=== PATIENT | female | born 1980 | race Hispanic/Latino ===

== ENCOUNTER 2023-08-14 04:10 | Inpatient (IN) | payer OTHER, SELFPAY ==
[2023-08-13] VITALS (10 sets, daily range): BP systolic 85–140; BP diastolic 63–103; BMI 34.8
[2023-08-13 22:03] LABS: % Basophils 0.6 % (0-2); % Immature Granulocytes 1.8 % (0-0.5); % Lymphocytes 11.1 % (20.5-51.1); % Monocytes 5.2 % (1.7-9.3); % Neutrophils 77.3 % (42.2-75.2); Absolute Basophils 0.1 10^3/uL (0-0.2); Absolute Eosinophils 0.7 10^3/uL (0-0.7); Absolute Immature Granulocytes 0.3 10^3/uL (0-0.05); Absolute Monocytes 0.9 10^3/uL (0.1-0.6); Absolute Neutrophils 13.7 10^3/uL (1.4-6.5); Hematocrit 34.9 % (37.0-47.0); Hemoglobin 12.2 g/dL (12.0-16.0); Mean Corpuscular Hgb 31.7 pg (27.0-31.0); Mean Corpuscular Volume 90.6 fL (81.0-99.0); Mean Platelet Volume 10.6 fL (7.4-10.4); Nucleated Red Blood Cells % 0 %; Platelet Count 294 10^3/uL (130-400); Red Blood Cell Count 3.85 10^6/uL (4.20-5.40); White Blood Cell Count 17.7 10^3/uL (4.8-10.8)
[2023-08-13] MEDS: NSS 1000 IV ×2 (22:08→23:35)
[2023-08-13 22:45] LABS: HCG, Serum Qualitative Screen Negative
[2023-08-13 22:49] LABS: ALT (SGPT) 110 U/L (0-35); AST (SGOT) 57 U/L (14-36); Albumin 4.2 g/dl (3.5-5.0); Alkaline Phosphatase 59 U/L (38-126); Blood Urea Nitrogen 27 mg/dl (7-17); Calcium 8.7 mg/dl (8.4-10.2); Carbon Dioxide 23 mmol/L (22-30); Chloride 107 mmol/L (98-107); Estimated Creatinine Clearance 115 ml/min; Glucose 129 mg/dl (70-99); Potassium 4.2 mmol/L (3.5-5.1); Sodium 138 mmol/L (135-145); Total Bilirubin 0.8 mg/dl (0.2-1.3); Total Protein 6.6 g/dl (6.3-8.2); eGFR > 60.00
[2023-08-13] MEDS: MORPHINE SULFATE 4 MG IV (23:36)
[2023-08-13] MEDS: PROTONIX 100 IV (23:40)
[2023-08-13] MEDS: PROTONIX IV 80 MG IV (23:43)
--- NOTE | 2023-08-13 23:53 | ED.GENMED ---
History of Present Illness
General
Chief Complaint: Vomiting Blood
Source: patient and family
Time Seen by Provider: 08/13/23 22:08
Travel History
Have you had any contact with someone who has COVID-19?: No
Do you have any symptoms of coronavirus? Fever > 100 degrees, chills, cough, shortness of breath, sore throat, loss of taste or smell, muscle aches, or headache?: No
History of Present Illness
History of Present Illness:
42-year-old female presents after she began vomiting blood at home. Patient states that she was eating around 2:00 this afternoon felt like food had gotten stuck. She then went and vomited. She did see some blood but it was mostly just vomitus
and food. She states then around 7 or 8 PM she came home and was not feeling well. She began vomiting and noticed all bright red blood. Patient states there was clots and she must of vomited 5-8 times. She also has some pain in the right upper
quadrant her abdomen. Patient states that then she noticed her stool was black. She does admit that she drinks 2 'tall boy' twisted teas daily. She also smokes 1 cigarette a day. She has had no vomiting in emergency department.
Past History
Past History
ED Past Medical History: Asthma, Hypercholesterolemia and Psychiatric (Anxiety/depression)
Social History
Tobacco: Smoker
Alcohol: Daily
Drug: None
Personal: Single
Living: homeless
Phy Exam
Physical Exam
Physical Exam:
CONSTITUTIONAL Patient alert and oriented to person, place and time. Vital signs reviewed.
HEAD atraumatic, normocephalic.
EYES eyelids normal to inspection, Pupils equally round and reactive to light, Extraocular muscles intact, Conjunctiva normal, Sclera normal.
NECK normal range of motion, Trachea midline, no jugular venous distention.
RESPIRATORY CHEST No respiratory distress noted, Chest expansion equal, Bilateral breath sounds clear.
CARDIOVASCULAR regular and tachycardic, Heart sounds normal.
ABDOMEN mild epigastric tenderness, Bowel sounds normal. No distention.
Rectal exam heme positive (only small smear of stool)
BACK normal inspection, no obvious deformities
UPPER EXTREMITY range of motion normal, Motor strength normal, no cyanosis, no edema.
LOWER EXTREMITY range of motion normal, Motor strength normal, no cyanosis, no edema.
NEURO Speech normal, No focal motor deficits, Violeta coma scale 15, Memory normal, Cranial Nerves intact to screening exam.
SKIN skin warm, dry, and normal in color.
PSYCHIATRIC patient oriented to person place and time, Normal affect.
Course
Orders/Labs/Results
Orders:
Orders
08/13/23 21:48
Test Result ONCE
08/13/23 21:56
Type+Screen Urgent
Complete Blood Count/With Diff Urgent
08/13/23 22:08
0.9% Sodium Chloride 1000 ml [Nss] 1,000 ml IV BOLUS
08/13/23 22:26
Comprehensive Metabolic Panel Urgent
HCG, Serum Qualitative Screen Urgent
08/13/23 22:47
Pantoprazole 80 mg/100 ml Nss [Protonix] 80 mg in 100 ml IV NOW
Pantoprazole [Protonix IV] 80 mg IV NOW STA
08/13/23 22:48
0.9% Sodium Chloride 1000 ml [Nss] 1,000 ml IV BOLUS
08/13/23 22:49
CT Chest/abd/pel W Iv Cont Urgent
Comment:
Reason For Exam: cp, abd pain, vomiting blood
08/13/23 23:00
Flush (0.9% Sodium Chloride) [Flush (Nss)] See Dose Instructions IV PER PROTOCOL
08/13/23 23:13
Prothrombin Time Urgent
08/13/23 23:22
Morphine Sulfate 4 mg IV NOW STA
08/14/23 00:07
Piperacillin/Tazo 3.375 Gram [Zosyn] 3.375 gram in 50 ml IV NOW
08/14/23 00:26
HYDROmorphone [Dilaudid] 1 mg IV NOW STA
08/14/23 00:32
Barium Swallow [RF Pharynx/cervical Esophagus] Urgent
Comment:
Reason For Exam: pain, vomiting, r/o esophageal rupture
Abnormal Lab Results
08/13/23 08/13/23 08/13/23
21:56 22:26 23:13
WBC 17.7 H 10^3/uL
(4.8-10.8)
RBC 3.85 L 10^6/uL
(4.20-5.40)
Hct 34.9 L %
(37.0-47.0)
MCH 31.7 H pg
(27.0-31.0)
MPV 10.6 H fL
(7.4-10.4)
Abs Immat Gran (auto) 0.3 H 10^3/uL
(0-0.05)
Absolute Neuts (auto) 13.7 H 10^3/uL
(1.4-6.5)
Absolute Monos (auto) 0.9 H 10^3/uL
(0.1-0.6)
Immature Gran % 1.8 H %
(0-0.5)
Neutrophils % 77.3 H %
(42.2-75.2)
Lymphocytes % 11.1 L %
(20.5-51.1)
PT 14.7 H Sec
(11.4-14.6)
BUN 27 H mg/dl
(7-17)
Glucose 129 H mg/dl
(70-99)
AST 57 H U/L
(14-36)
ALT 110 H U/L
(0-35)
08/13/23 21:56
08/13/23 22:26
Vital Signs
Initial and Last Documented VS:
Initial Vital Signs
Temp Pulse Resp BP Pulse Ox
98.8 F 120 20 119/89 96
08/13/23 21:49 08/13/23 21:49 08/13/23 21:49 08/13/23 21:49 08/13/23 21:49
Last Documented Vital Signs
Temp Pulse Resp BP Pulse Ox
98.8 F 95 15 149/95 99
08/13/23 21:49 08/14/23 00:30 08/14/23 00:30 08/14/23 00:30 08/14/23 00:30
MDM/Problems Addressed
Differential Diagnosis Includes:
Norma-Eckert tear, esophageal variceal bleeding, peptic ulcer disease, duodenal ulcer disease, esophageal rupture
MDM/Problems Addressed:
Acute upper GI bleeding, alcohol abuse, abdominal pain
*Radiology
Radiology exam reviewed: preliminary read by ED provider (No obvious free air, await radiology reading) and radiology read reviewed
*Pulse Oximetry
Patient hypoxic: no
*Nutrition Assistant Interpretation
Rate: tachycardiac
Interpretation: abnormal
Rhythm: sinus
*Critical Care Note
Total Time (30-74mins, 75-104mins- exclusive of procedures): 90 minutes
Data Reviewed
Source: patient and family
Prescriptions/Medications Considered But Not Given:
Considered octreotide but no known history of cirrhosis
Patient Management
Discussion with other providers: Vice President Of Marketing, Radiologist (Case discussed with radiologist who states that he does not see any barium extravasation) and Other (Case discussed with thoracic surgery at [facility] who recommends barium swallow)
Escalation/DeEscalation of care consider admission/obs:
42-year-old female with upper GI bleeding. No further bleeding here in the emergency department but does have heme positive stools. IV PPI, antibiotics
0015 Case discussed with thoracic surgery at [facility]. They recommend a barium swallow. If negative, no need for transfer. Case was also discussed with gastroenterology.
0144 Case discussed with radiology who does not see any extravasation of barium. Continue PPI. Admit. Blood pressure stable
ED Attending Note
ED Attending Note
Patient seen and examined by attending physician: Yes
I performed the substantive portion of visit, reviewed & personally made and approve the management plan that is documented in note by myself or LAYNE.: Yes
-
Portions of this chart may have been created with voice recognition software.� Occasional wrong word or��sound alike� substitutions may have occurred due to the inherent limitations of voice recognition software.
Discharge Plan
Departure
Patient Disposition: Admit
Date of Disposition: 08/13/23
Time of Disposition: 23:57
Admit to: IMU
Presentation/result/management discussed w/ accepting MD/DO: Hospitalist
Discharge Problem:
Acute upper gastrointestinal hemorrhage, Esophageal rupture, Pneumomediastinum
Referrals:
Jennifer Mccloud MD [Family Provider] -
Interventions
Interventions:
*Risk Screen - Suicide Last Done: 08/13/23 21:58
*General Assessment Last Done: 08/13/23 21:58
*Neglect/Abuse Screening Last Done: 08/13/23 21:58
*ED COVID-19 Vaccine History Last Done: 08/14/23 01:27
TV-Gytcai-Fgokqxqniz Assessment Last Done: 08/13/23 22:00
ED- Cardiac Assessment Last Done: 08/13/23 22:00
ED- Pulmonary Assessment Last Done: 08/13/23 22:00
Discharge Date and Time
Print Language: CHADIAN
[2023-08-14] VITALS (38 sets, daily range): BP systolic 112–149; BP diastolic 71–112; PULSE 90–100; BMI 34.8
[2023-08-14 00:14] LABS: INR 1.14; PT 14.7 Sec (11.4-14.6)
[2023-08-14] MEDS: DILAUDID 1 MG IV (00:49)
[2023-08-14] MEDS: ZOSYN 50 IV ×5 (00:52→23:26)
--- NOTE | 2023-08-14 02:08 | EDRN ---
Pt says she swallowed a shrimp, felt it was stuck so she made herself vomit around 1400 yesterday. Pt felt better and went out with her roommate. When pt returned home around 1900 she did not feel well and vomited bright red blood. Pt vomited 5
minutes later and said 'it looked like a bottle of wine with clots.' Pt had a bowel movement that was 'dark' no blood noted. Pt says she vomited 5-8 times. Pt denies pain currently and says 'I can breathe now.' Pt says she felt expansion in her
abdomen/chest and had to 'hold my right boob' to help with breathing but now her breathing is back to normal. Pt denies cp, sob currently, abd pain, constipation/diarrhea, weakness, dizziness, fever/chills/cough. Pt vomited small amount red tinged
liquid about 5 minutes ago.
--- NOTE | 2023-08-14 02:36 | HPS.HSE ---
Family Physician
-
Family Physician: Jennifer Mccloud MD
Chief Complaint
-
vomiting blood
History of Present Illness
42F HX suggestive of ETOH use disorder, current smoker, HLD, COPD, Anxiety/depression seen at ER for evaluation vomiting blood.
Acute hematemesis
- Initially she felt choking with food in the throat
- She drank fluid then forced herself to vomit
- following self induced emesis, she vomited BRB and clots at least 5 times at home
- associated RUQ abdominal pain with radiation to Rt upper back
- she called EMS
Per EMS
- lots of blood in the toilet anf bathtub
At ER:
Hemodynamically stable
SHANE: small smear of stool and heme positive
Medical History
Past Medical History
Past Medical History: Reports Other
Additional Past Medical History:
Asthma, Hypercholesterolemia and Psychiatric (Anxiety/depression) MYNOR use disorder
Past Surgical History: Reports None
Social History
Tobacco: Smoker
Alcohol: Daily (2 bottle of twister daily ( Ice tea with ETOH ) )
Drug: None
Living: Other
Family History
Family History: Not pertinent
Allergies / Home Medications
Allergies reflects when Allergies were last updated in [employer].
Home Medications with original date entered in [employer]
Allergy/Medication List:
Allergies
Allergy/AdvReac Type Severity Reaction Status Date / Time
No Known Allergies Allergy Verified 08/13/23 21:47
Home Medications
albuterol sulfate 90 mcg/actuation aerosol inhaler 1 puff inhalation PRN PRN sob 08/14/23
atorvastatin 10 mg tablet 10 mg PO QPM 08/14/23
bupropion HCl 300 mg 24 hr tablet, extended release 300 mg PO DAILY 08/14/23
fluticasone 250 mcg-salmeterol 50 mcg/dose blistr powdr for inhalation (Advair Diskus) 1 inh inhalation DAILY 08/14/23
ipratropium 0.5 mg-albuterol 3 mg (2.5 mg base)/3 mL nebulization soln 3 ml inhalation Q4H PRN sob 08/14/23
quetiapine 1 tab PO DAILY 08/14/23
vortioxetine 20 mg tablet (Trintellix) 20 mg PO DAILY 08/14/23
Review of Systems
-
Constitutional: Reports No Symptoms
EENT: Reports No Symptoms
Respiratory: Reports No Symptoms
Cardiac: Reports No Symptoms
Abdomen/GI: Reports Abdominal Pain and Vomiting (blood )
: Reports No Symptoms
Musculoskeletal: Reports No Symptoms
Skin: Reports No Symptoms
Neurological: Reports No Symptoms
Endocrine: Reports No Symptoms
Hematologic/Lymphatic: Reports No Symptoms
Psych: Reports No Symptoms
Physical Exam
Vital Signs
Vital Signs
Temp Pulse Resp BP Pulse Ox
98.3 F 98 18 127/92 94
08/14/23 01:42 08/14/23 02:00 08/14/23 02:00 08/14/23 01:42 08/14/23 02:00
Physical Exam
General: No Apparent Distress
HEENT: NormoCephalic, Anicteric and Moist mucous membranes
Respiratory: Clear; No Wheezes, Rales or Rhonchi
Cardiac: S1/S2, Regular Rhythm and Tachycardia (borderline tachycardic )
Breast: Deferred by me
GI: Soft, Non Distended and Tender ( mild epigastric tenderness)
Rectal: Hem Positive (from [facility] stool smaer )
Genito-urinary: Deferred by me
Musculoskeletal: No Edema
Skin: Warm and Dry; No Rash
Neuro: AO x 3 and Nonfocal/grossly intact
Psych: Calm
Laboratory Results
-
08/13/23 21:56
06/07/24 22:26
Laboratory Results
PT 14.7 Sec (11.4-14.6) H 08/13/23 23:13
INR 1.14 08/13/23 23:13
Total Bilirubin 0.8 mg/dl (0.2-1.3) 08/13/23 22:26
AST 57 U/L (14-36) H 08/13/23 22:26
ALT 110 U/L (0-35) H 08/13/23 22:26
Alkaline Phosphatase 59 U/L (38-126) 08/13/23 22:26
Lipase Cancelled 08/13/23 21:56
Data Reviewed
-
Diagnostic Radiology: Report Reviewed by me
CT Scan: Report Reviewed by me
Lab Data: Labs Reviewed by me
Impression/Plan
-
Reviewed VS: T 98.3 HR 98 BP 127/92 RR18 POx 94
Data
WCC 17.7
Hgb 12.2 - no prior data
BUN 27
AST 57
ALT 110
Nl TB
NEG HCG
CT C/A/P
RF Esophagus-Single Contrast: and Barium swallow: Normal. No extravesation
NO PRIOR hospitalist admission:
ASSESSMENT & PLAN
Pending Rx reconciliation
Acute GIB - suspect upper GI origin
DDX: Norma-Eckert tear, esophageal variceal bleeding, peptic ulcer disease, duodenal ulcer disease, esophageal rupture
Prelim CT AP concerning for suspicion for pneumomediastinum however barium swallow neg without extravasation
- T & S
- Blood consented
- Trend Hgb
- PPI gtt
- NPO and IVF
- Empiric IV Zosyn
- GI consult
HX suggestive of severe ETOH use disorder
At risk for Acute WDS
- MSAS protocol
- Psych consult
Anxiety/ Depression
- Held OP Meds for now
HLD
- Held Statin
HX COPD
Curent smoker
- cont. OP INH and PRN Nebs
DVT Px: SCD
Code: Full code
IMU
[2023-08-14] MEDS: NSS 1000 IV ×2 (04:50→17:38)
[2023-08-14 04:55] LABS: INR 1.16; PT 14.9 Sec (11.4-14.6)
[2023-08-14 05:03] LABS: Hematocrit 29.3 % (37.0-47.0); Hemoglobin 10.3 g/dL (12.0-16.0)
[2023-08-14 05:07] LABS: ALT (SGPT) 99 U/L (0-35); AST (SGOT) 49 U/L (14-36); Albumin 3.8 g/dl (3.5-5.0); Alkaline Phosphatase 58 U/L (38-126); Blood Urea Nitrogen 21 mg/dl (7-17); Calcium 8.1 mg/dl (8.4-10.2); Carbon Dioxide 23 mmol/L (22-30); Chloride 110 mmol/L (98-107); Estimated Creatinine Clearance > 125 ml/min; Glucose 115 mg/dl (70-99); Potassium 4.2 mmol/L (3.5-5.1); Sodium 140 mmol/L (135-145); Total Bilirubin 0.8 mg/dl (0.2-1.3); Total Protein 6.2 g/dl (6.3-8.2); eGFR > 60.00
--- NOTE | 2023-08-14 05:14 | EDRN ---
Pt asking about pain medication - there is none ordered. Pt complains of pain RUQ abdomen 'like there is air in there.' TT to Shelby Aragon with pain medication request and morning h/h results.
[2023-08-14] MEDS: DILAUDID 0.5 MG IV (05:19)
--- NOTE | 2023-08-14 07:02 | EDRN ---
Pt is IMU admission going to ICU - attempted to call report. ICU unable to take report, will call back.
--- NOTE | 2023-08-14 08:00 | PTCARENOTE ---
Received patient from ER. Patient oriented to room. Patient AAOx4, anxious. MSAS is 1. Patient is on room air 95%, Sinus rhythm on monitor. SCDs ordered, will obtain and put on. Patient is strict NPO. No nausea at this time. Skin is intact.
Will review orders, patient oriented to room, call beltre within reach.
[2023-08-14] MEDS: FOLVITE PO (09:07)
[2023-08-14] MEDS: ADVAIR HFA 115/21 MCG INHALER 2 PUFF INH ×2 (09:07→22:01)
[2023-08-14] MEDS: THIAMINE INJECTION 200 MG IV ×3 (09:13→23:26)
[2023-08-14] MEDS: PROTONIX 100 IV ×2 (09:13→20:20)
--- NOTE | 2023-08-14 09:18 | CON.GI ---
Addendum entered and electronically signed by Polina Bledsoe MD 08/14/23 20:34:
I saw and examined the patient.
The [employer] or PA's note was reviewed and I agree with the note.
Comment: 40-year-old female with history of anxiety/depression, asthma presenting with complaints of hematemesis chest discomfort after an episode of dysphagia where she had rice/meat stuck in the esophagus after lunch yesterday. She induced
vomiting to relieve the obstruction and had retching with this, she was able to bring up the food and was able to drink water after but after that had multiple episodes of coffee-ground emesis and 1 episode of melena. She continues to have pain in
the chest and came to the emergency room last night. In the ER, she had CT of the chest that showed circumferential mild wall thickening of the mid and distal esophagus suggesting acute Norma-Roblero tear, small hiatal hernia, possible minimal
pneumomediastinum. Also noted was severe diffuse fatty liver. ER physician did discuss with CT surgery at [facility] who recommended single contrast esophagram, there was no evidence of esophageal tear and contrast passed normally into the stomach
without any evidence of extraluminal extravasation and patient was admitted here at [facility].
She does report episodes of dysphagia when she was younger but not in her adolescent and adult health. No GI issues prior to this episode.
In the ER, she did have mild leukocytosis and drop in hemoglobin but no further hematemesis or coffee-ground emesis since this morning. Never had GI bleeding, no previous upper endoscopy and colonoscopies.
-Hematemesis/coffee-ground emesis with underlying Norma-Roblero tear related to retching
Currently hemodynamically stable without any further coffee-ground emesis.
Continue to be n.p.o., continue Protonix drip.
Monitor H&H and transfuse as needed.
No plans for upper endoscopy at this time given the possibility of pneumomediastinum.
-Pneumomediastinum noted on CT scan, currently getting antibiotic coverage and hospitalist team in touch with thoracic surgery delivers to [place] for possible transfer.
Plan is for repeat esophagram on Wednesday.
-Elevated LFTs, underlying fatty liver noted. Daily alcohol use.
Agree with hepatitis panel but needs outpatient follow-up.
Will follow for now but will arrange to set up for outpatient endoscopy after 8 weeks but needs PPI twice a day until then.
Original Note:
Consultation
-
Date/Time Consultation Requested: 08/14/23 042
Date/Time Consultation Performed: 08/14/23 0900
Requesting Provider: Dr. Huerta
Performing Provider: Dr. Bledsoe/ALMA Mo
Reason for Consultation: hematemasis
Medical History
Chief Complaint / HPI
Chief Complaint: hematemesis
History of Present Illness:
42-year-old female with past medical history of asthma, hyperlipidemia, anxiety and depression presents to the emergency room with hematemesis and right-sided chest discomfort. Asked to evaluate for the same. Patient states that she has a
longstanding history of intermittent dysphagia associated with foods such as steak. She states that this has been ongoing since a child. She states that it was usually when she would eat fast as a child. Now only happens approximately 3-4 times a
year mostly associated with steak. She has had to force regurgitate this in the past. She states the last episode was approximately 3 to 4 months ago. She states yesterday she was eating shrimp with broccoli with how special rice and she was
eating this fast. She felt it get stuck in her throat in the mid epigastric area. She then proceeded to drink water and felt a pain that came across the right side of her chest and felt as if it 'stretched something across her right side'. She
then quickly vomited up the food by sticking her fingers down her throat. This relieved some of the pressure in her esophagus however the discomfort in the right side of her chest remained. This was somewhat alleviated. She states then an hour or
so later she felt very nauseous, clammy and a feeling as if a hot wave came over her. She then proceeded to have 2 episodes of bright red blood vomitus. And 1 episode of black stool. She then started having further discomfort in the right side of
her chest and she proceeded to come to the emergency room. She is still having this discomfort at the present time. She is also having radiating discomfort to her right shoulder. She has had no further episodes of vomiting or stools. She drinks
approximately 48 ounces of 'twisted tea'. She smokes 1 cigarette a day. She has a prior history of cocaine abuse and quit/went to rehab 3 years ago. She states she has been clean ever since. She does occasionally use marijuana. She denies any
fevers, hematochezia, early satiety, unintentional weight loss. She has no family history gastrointestinal malignancies or IBD. She has never had endoscopy or colonoscopy
Past Medical History
Past Medical History: Asthma, Hypercholesterolemia, Psychiatric (Anxiety, depression) and Other (Intermittent dysphagia)
Past Surgical History: None (Sinus surgery, bilateral carpal tunnel)
Social History
Tobacco: Smoker
Alcohol: Daily (48 out to the twisted teas daily)
Drug: Former User (Former cocaine user, quit 3 years ago) and Marijuana (Occasional marijuana)
Personal: Single
Family History
Family History: Other (No family history of gastrointestinal malignancy or IBD.)
Allergies / Home Medications
Allergy/AdvReac Type Severity Reaction Status Date / Time
No Known Allergies Allergy Verified 08/13/23 21:47
�Medication �Instructions �Recorded
albuterol sulfate 90 mcg/actuation 1 puff inhalation PRN PRN sob 08/14/23
aerosol inhaler
atorvastatin 10 mg tablet 10 mg PO QPM 08/14/23
bupropion HCl 300 mg 24 hr tablet, 300 mg PO DAILY 08/14/23
extended release
fluticasone 250 mcg-salmeterol 50 1 inh inhalation DAILY 08/14/23
mcg/dose blistr powdr for
inhalation (Advair Diskus)
ipratropium 0.5 mg-albuterol 3 mg 3 ml inhalation Q4H PRN sob 08/14/23
(2.5 mg base)/3 mL nebulization
soln
quetiapine 1 tab PO DAILY 08/14/23
vortioxetine 20 mg tablet 20 mg PO DAILY 08/14/23
(Trintellix)
Review of Systems
-
All other systems: A 12 pt ROS was Negative except as stated above in HPI
Vital Signs
Temp Pulse Resp BP Pulse Ox
98.3 F 90 19 117/77 97
08/14/23 08:00 08/14/23 09:13 08/14/23 09:13 08/14/23 07:00 08/14/23 09:13
Physical Exam
Exam
General: No Apparent Distress
HEENT: Anicteric
Respiratory: Clear (Anterior) and Other (Discomfort in right side of chest holding her right breast)
Cardiac: Regular Rhythm
GI: Soft, Non Tender, Non Distended and Normal Bowel Sounds
Musculoskeletal: No Edema
Skin: Warm and Dry
Psych: Calm
Results
WBC 17.7 10^3/uL (4.8-10.8) H 08/13/23 21:56
Hgb Cancelled 08/14/23 22:21
Hct Cancelled 08/14/23 22:21
MCV 90.6 fL (81.0-99.0) 08/13/23 21:56
Plt Count 294 10^3/uL (130-400) 08/13/23 21:56
Absolute Neuts (auto) 13.7 10^3/uL (1.4-6.5) H 08/13/23 21:56
PT 14.9 Sec (11.4-14.6) H 08/14/23 04:35
INR 1.16 08/14/23 04:35
Sodium 140 mmol/L (135-145) 08/14/23 04:35
Potassium 4.2 mmol/L (3.5-5.1) 08/14/23 04:35
Chloride 110 mmol/L (98-107) H 08/14/23 04:35
Carbon Dioxide 23 mmol/L (22-30) 08/14/23 04:35
BUN 21 mg/dl (7-17) H 08/14/23 04:35
Creatinine 0.6 mg/dL (0.6-1.0) 08/14/23 04:35
Calcium 8.1 mg/dl (8.4-10.2) L 08/14/23 04:35
Total Bilirubin 0.8 mg/dl (0.2-1.3) 08/14/23 04:35
AST 49 U/L (14-36) H 08/14/23 04:35
ALT 99 U/L (0-35) H 08/14/23 04:35
Alkaline Phosphatase 58 U/L (38-126) 08/14/23 04:35
Lipase Cancelled 08/13/23 21:56
Diagnostic Image Results:
CT chest abdomen and pelvis 08/14/2023:
IMPRESSION:
CHEST:
1. Mild circumferential wall thickening throughout the mid and distal esophagus with suggestion of intramural edema in the right posterolateral distal esophageal wall and a small amount of paraesophageal complex fluid or hemorrhage. The findings
in conjunction with the patient history are most suggestive of an ACUTE NORMA-ROBLERO TEAR.
2. Small hiatal hernia.
3. Possible minimal pneumomediastinum.
ABDOMEN and PELVIS:
1. SEVERE DIFFUSE HEPATIC STEATOSIS and mild hepatomegaly.
2. No CT evidence for ascites or pneumoperitoneum.
3. Small bilateral nonobstructing intrarenal calculi.
4. IUD in the uterus.
A preliminary interpretation was provided by [facility] teleradiology service. The preliminary report was discussed with Seferino Agustin DO of the Emergency Department at 11:59 PM on 08/13/2023.
Single contrast esophagram 08/14/23:
IMPRESSION:
Normal.Single contrast Omnipaque 240 mg /ml esophagram was performed demonstrating the esophagus to be normal in architecture and motility with no evidence of esophageal tear. There is no evidence of stricture, obstruction or neoplasm.
Contrast passed normally into the stomach with no evidence of extraluminal extravasation.
Prior GI Procedures:
EGD: Never had
Colonoscopy: Never had
Assessment / Plan
-
42-year-old female with past medical history of asthma, hyperlipidemia, anxiety and depression presents to the emergency room with hematemesis and right-sided chest discomfort. Asked to evaluate for the same. Patient states that she has a
longstanding history of intermittent dysphagia associated with foods such as steak. She states that this has been ongoing since a child. She states that it was usually when she would eat fast as a child. Now only happens approximately 3-4 times a
year mostly associated with steak. She has had to force regurgitate this in the past. She states the last episode was approximately 3 to 4 months ago. She states yesterday she was eating shrimp with broccoli with how special rice and she was
eating this fast. She felt it get stuck in her throat in the mid epigastric area. She then proceeded to drink water and felt a pain that came across the right side of her chest and felt as if it 'stretched something across her right side'. She
then quickly vomited up the food by sticking her fingers down her throat. This relieved some of the pressure in her esophagus however the discomfort in the right side of her chest remained. This was somewhat alleviated. She states then an hour or
so later she felt very nauseous, clammy and a feeling as if a hot wave came over her. She then proceeded to have 2 episodes of bright red blood vomitus. And 1 episode of black stool. She then started having further discomfort in the right side of
her chest and she proceeded to come to the emergency room. She is still having this discomfort at the present time. She is also having radiating discomfort to her right shoulder. She has had no further episodes of vomiting or stools. Patient was
CT of the chest abdomen pelvis showing mild circumferential wall thickening throughout the mid and distal esophagus with suggestion of intramural edema at the right posterior lateral distal esophagus wall and small amount of paraesophageal complex
fluid or hemorrhage. The findings in conjunction with patient history suggestive of acute Norma-Roblero tear. Small hiatal hernia. Possible minimal pneumomediastinum. Patient presents with WBC of 17.7, hemoglobin initially of 12.2 down to 10.3,
hematocrit 34.9 now down to 29.3, platelets 294, PT 14.9, INR 1.16, sodium 140, potassium 4.2, chloride 110, CO2 23, BUN 21, creatinine 0.6, glucose 115, total bilirubin 0.8, AST 49, ALT 99, alk phos 58, albumin 3.8.
Impression:
Hematemesis, likely associated with Norma-Roblero tear
Intermittent dysphagia, patient with episodes of this since she was a child with history of underlying asthma. ? Question eosinophilic esophagitis
Possible pneumomediastinum seen on CT imaging, patient also with right chest discomfort radiating to right shoulder
ETOH use
Fatty liver on Imaging
Plan:
-Continue Protonix drip. Would then keep on chronic PPI.
-Zofran 4 mg IV every 6 hours as needed
-N.p.o.
-Avoid any wretching
-Discussed with internal medicine this morning and recommended CT surgery evaluation. CT surgery recommended transfer to tertiary center.
-Transfer is being initiated between Internal Medicine/CT Surgery and Crit Care
-Trend Hgb
-Watch for signs of ETOH withdrawal
-Recommend eventual EGD in the future for eval for EOE.
-Recommend outpatient follow up for elevated transaminases and fatty liver. Trend LFT for now. Check Hep panel with prior cocaine use.
-
-
Thank you for consultation and allowing me to participate in the patient's care. Please call the employment educational coord GI physician during the after hours with any questions or concerns.
--- NOTE | 2023-08-14 10:05 | CM ---
CM following re: discharge planning.
Reviewed pt's chart, met with pt.
Pt is a 42 year old female, admitted with primary dx of hematemesis.
Pt reports she rents a room on the 1st floor in a [address], other people live there. Pt reports she has lived in [place] for 40 years, hash/o abusing substances, went to inpatient [facility] rehab in 2001, went to [facility], [facility], [facility], has been clean for 3
years. pt stated she used to abuse cocaine, crack cocaine and now she only drinks 24 OZ of alcoholic tea daily. Pt reports she went to [place] 1.5 years [facility] for [employer] and has been living in a rented room in the house with other people. Pt reports
she has Anxiety, Depression, PTSD - pt stated she found her mother in the bed and she has been always seeing it. Emotional support offered and provided.
Pt expressed her agreement to meet with [facility] team. A referral to [facility] made.
Per RN pt most likely will be transferred to [facility].
PCP: Jennifer Mccloud
Pharmacy: [facility]
D/C plan: possible transfer to [facility].
CM will follow with discharge plan updates as hospitalization progresses
[2023-08-14] MEDS: DILAUDID 0.25 MG IV ×5 (10:37→23:25)
--- NOTE | 2023-08-14 10:50 | PTCARENOTE ---
Patient made strict NPO no ice chips, patient to be transferred to [facility] per hospitalist.
--- NOTE | 2023-08-14 11:06 | W.PN.HOSP.TC ---
Today's Communication/Plan
-
Monitor patient closely in the IMU
Continue PPI drip
Avoid any wretching
Continue Zosyn and Fluconazole
Discussed case with gastroenterology and cardiothoracic surgery -- see discussion with [facility] cardiothoracic below
Assessment / Plan
Assessment / Plan
Physical Exam
General: Intermittent distress due to pain
HEENT: Normocephalic
Respiratory: Clear to Auscultation Bilaterally
Cardiac: S1/S2, Regular Rhythm, Regular Rate
GI: Soft, Non Distended and Mild Epigastric Tenderness
Musculoskeletal: No Edema
Skin: Warm and Dry
Neuro: AAO x 3 and Nonfocal/grossly intact
Psych: Good Insight.

42-year-old female with past medical history of intermittent dysphagia for decades, asthma, hyperlipidemia, anxiety and depression presented to the emergency room with hematemesis and right-sided chest discomfort. Patient
stated that yesterday she was eating shrimp with broccoli with special rice when she felt it get stuck in her throat in the mid epigastric area. She then drank water, but the water did not work, so she induced vomiting (which was nonbloody) and had
some right-sided chest pain. She then went to run some errands outside, came back and spontaneously vomited bright red colored blood, but then also had subsequent several episodes of vomiting during which she vomited maroon-colored blood. She also
had dark-colored stool. Around that time she also felt very nauseous, clammy and a feeling as if a hot wave came over her. She had additional maroon-colored vomiting with clots, which she described as leeches. She smokes 1 cigarette a day. Per GI
report, she has a prior history of cocaine abuse and quit/went to rehab 3 years ago. She states she has been clean ever since. She does occasionally use marijuana. She denies any fevers, hematochezia, early satiety, unintentional weight loss. In
the ER per vital signs record: afebrile, tachycardic, blood pressure mostly stable, some tachypnea and saturating well on room air. Labs showed WBC 17.7, immature granulocytes, Hgb 12.2 but later dropped to 10.3, platelets 294, INR ~1.5, calcium now
8.1 with albumin 3.8, AST in the 40s to 50s range, ALT 110 to 90s,
Diagnostic Image Results (as per radiologists' report)
CT chest abdomen and pelvis 08/14/2023:
IMPRESSION:
CHEST:
1. Mild circumferential wall thickening throughout the mid and distal esophagus with suggestion of intramural edema in the right posterolateral distal esophageal wall and a small amount of paraesophageal complex fluid or hemorrhage. The findings
in conjunction with the patient history are most suggestive of an ACUTE NORMA-ROBLERO TEAR.
2. Small hiatal hernia.
3. Possible minimal pneumomediastinum.
ABDOMEN and PELVIS:
1. SEVERE DIFFUSE HEPATIC STEATOSIS and mild hepatomegaly.
2. No CT evidence for ascites or pneumoperitoneum.
3. Small bilateral nonobstructing intrarenal calculi.
4. IUD in the uterus.
A preliminary interpretation was provided by [facility] teleradiology service. The preliminary report was discussed with Seferino Agustin DO of the Emergency Department at 11:59 PM on 08/13/2023.
Single contrast esophagram 08/14/23 (as per radiologist's report):
IMPRESSION:
Normal.Single contrast Omnipaque 240 mg /ml esophagram was performed demonstrating the esophagus to be normal in architecture and motility with no evidence of esophageal tear. There is no evidence of stricture, obstruction or neoplasm.
Contrast passed normally into the stomach with no evidence of extraluminal extravasation.
Prior GI Procedures:
EGD: Never had
Colonoscopy: Never had
Hematemesis, likely associated with Norma-Roblero tear
Intermittent dysphagia since patient's childhood
Possible pneumomediastinum seen on CT imaging, patient also with right chest discomfort radiating to right shoulder
- Type and screen obtained and patient consent obtained for blood
- Trend Hgb
- Continue Protonix Drip
- Strict NPO
- Continue IV Zosyn
- Continue IV Diflucan
- GI consulted, recommendations appreciated
- Zofran prn and AVOID ANY RETCHING
- Case discussed with cardiothoracic surgeon Dr. Mic Gentile as well as gastroenterology team: cardiothoracic surgery recommended transferring the patient to a tertiary care center, they also mentioned they don't do any esophageal surgery here
-On August 14, 2023, Cardiothoracic surgeon Dr. Mic Gentile and myself spoke to Dr. Mejia, cardiothoracic surgeon at [facility], and after discussing case with him he recommended no transfer needed for now (but transfer acutely if patient were to
decompensate) and recommended IV fluids, IV Zosyn, IV Fluconazole, NPO, repeat esophagram in 2 days, and continue monitoring the patient closely.
Alcohol Use
Fatty Liver/Severe Hepatic Steatosis
- Monitor for alcohol withdrawal with [facility] prn Ativan protocol
Anxiety/ Depression
- Held OP Meds for now due to strict NPO
Hyperlipidemia
- Held Statin due to strict NPO
History of COPD?
Asthma History?
Current smoker
-Continue home breathing treatments
History of Cocaine Use
Current Marijuana Use
DVT Prophylaxis: SCDs; hold chemical DVT prophylaxis due to bleeding and anemia
Code Status: Full code
Possible pneumomediastinum with likely acute blood loss anemia needing monitoring in the IMU and transfer to a tertiary care center is a high-encounter.
Anticipated Discharge: > 48 hours
Subjective/Interval History
-
Date of Service: August 14, 2023
Patient was seen and examined. She reported significant amount of right-sided chest pain and back pain.
Objective Data
-
Labs:
Laboratory Results
08/13/23 08/14/23 08/14/23
23:13 04:35 10:21
Hgb 10.3 L Cancelled
Hct 29.3 L Cancelled
PT 14.7 H 14.9 H
INR 1.14 1.16
Sodium 140
Potassium 4.2
Chloride 110 H
Carbon Dioxide 23
BUN 21 H
Creatinine 0.6
Glucose 115 H
Calcium 8.1 L
Total Bilirubin 0.8
AST 49 H
ALT 99 H
Alkaline Phosphatase 58
08/14/23 08/14/23 08/14/23
10:30 16:21 16:30
Hgb Pending Cancelled Pending
Hct Pending Cancelled Pending
PT
INR
Sodium
Potassium
Chloride
Carbon Dioxide
BUN
Creatinine
Glucose
Calcium
Total Bilirubin
AST
ALT
Alkaline Phosphatase
08/14/23 08/14/23
22:21 22:30
Hgb Cancelled Pending
Hct Cancelled Pending
PT
INR
Sodium
Potassium
Chloride
Carbon Dioxide
BUN
Creatinine
Glucose
Calcium
Total Bilirubin
AST
ALT
Alkaline Phosphatase
Vital Signs:
Vital Signs
Temp Pulse Resp BP Pulse Ox
98.3 F 87 22 143/98 96
08/14/23 08:00 08/14/23 10:30 08/14/23 10:30 08/14/23 10:30 08/14/23 10:30
I&O
08/13/23 08/14/23 08/15/23
06:59 06:59 06:59
Intake Total 180 / 180
Balance 180 / 180
[2023-08-14 12:38] LABS: Hematocrit 28.2 % (37.0-47.0); Hemoglobin 9.8 g/dL (12.0-16.0)
--- NOTE | 2023-08-14 13:08 | PTCARENOTE ---
Plan for patient is now to manage here. Physicians recommend IVF, antiiotics and epeat esophagram/gastrograffin on wednesday. can transfer if acutely decompensating. Patient vital signs remain stable at this time.
[2023-08-14] MEDS: DIFLUCAN 200 MG 100 IV (13:25)
[2023-08-14] MEDS: FOLVITE 50.2000000000000028 MG IV (16:02)
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
--- NOTE | 2023-08-14 16:59 | PTCARENOTE ---
No change in patient's assessment. Patient continues to rate her pain at 8.5:10 in upper right quadrant.
[2023-08-14 18:28] LABS: Hematocrit 26.4 % (37.0-47.0); Hemoglobin 9.3 g/dL (12.0-16.0)
[2023-08-15] VITALS (12 sets, daily range): BP systolic 109–159; BP diastolic 74–98; BMI 35.2
--- NOTE | 2023-08-15 00:10 | PTCARENOTE ---
Pt physical assessment preformed at this time,pt easily awoken oriented,c/o pain under right breast,asking for pain med,Pt medicated with Dilaudid 0.25mg IV with + relief.VS stable,afebrile,SR.IV Protonix GTT maintained.Pt self positioning.Close
observation ongoing throughout the night.
[2023-08-15 01:09] LABS: Hematocrit 26.8 % (37.0-47.0); Hemoglobin 8.6 g/dL (12.0-16.0)
[2023-08-15] MEDS: ATIVAN 1 MG IV ×3 (05:25→20:17)
[2023-08-15] MEDS: NSS 1000 IV ×2 (05:27→14:03)
[2023-08-15] MEDS: ZOSYN 50 IV ×3 (05:31→17:27)
[2023-08-15 05:39] LABS: % Eosinophils 6.8 % (0-6); % Immature Granulocytes 1.3 % (0-0.5); % Lymphocytes 21.6 % (20.5-51.1); % Monocytes 5.8 % (1.7-9.3); % Neutrophils 63.5 % (42.2-75.2); Absolute Basophils 0.1 10^3/uL (0-0.2); Absolute Eosinophils 0.5 10^3/uL (0-0.7); Absolute Immature Granulocytes 0.1 10^3/uL (0-0.05); Absolute Lymphocytes 1.5 10^3/uL (1.2-3.4); Absolute Monocytes 0.4 10^3/uL (0.1-0.6); Absolute Neutrophils 4.4 10^3/uL (1.4-6.5); Hematocrit 25.9 % (37.0-47.0); Hemoglobin 8.8 g/dL (12.0-16.0); Mean Corpuscular Hgb 31.4 pg (27.0-31.0); Mean Corpuscular Volume 92.5 fL (81.0-99.0); Mean Platelet Volume 10.7 fL (7.4-10.4); Nucleated Red Blood Cells % 0 %; Platelet Count 175 10^3/uL (130-400); Red Cell Dist. Width 13.2 % (11.5-14.5); White Blood Cell Count 6.9 10^3/uL (4.8-10.8)
[2023-08-15] MEDS: PROTONIX 100 IV ×2 (05:47→17:28)
[2023-08-15 05:53] LABS: ALT (SGPT) 83 U/L (0-35); AST (SGOT) 50 U/L (14-36); Albumin 3.6 g/dl (3.5-5.0); Alkaline Phosphatase 58 U/L (38-126); Direct Bilirubin 0.3 mg/dl (0.0-0.4); Total Bilirubin 0.5 mg/dl (0.2-1.3); Total Protein 5.9 g/dl (6.3-8.2)
--- NOTE | 2023-08-15 07:00 | PTCARENOTE ---
report received from nightshift RN. walking rounds completed. Pt resting in bed, arouses easily to voice, AAOX3. SR on telemetry heart rate in 80s. pulses palpable. no edema. pt on room air, sat 96%. lung sounds diminished in bases. active bowel
sounds, NPO. voiding in bathroom without difficulty. protonix gtt infusing per orders and IVF. see worklist for full nursing assessment and interventions. pt updated on plan of care.
[2023-08-15] MEDS: FOLVITE PO (08:09)
[2023-08-15] MEDS: THIAMINE INJECTION 200 MG IV ×2 (08:09→15:37)
[2023-08-15] MEDS: NSS (PRESERVATIVE FREE) 0.5 ML IV (09:26)
[2023-08-15 09:39] LABS: ALT (SGPT) 86 U/L (0-35); AST (SGOT) 52 U/L (14-36); Albumin 3.7 g/dl (3.5-5.0); Alkaline Phosphatase 58 U/L (38-126); Blood Urea Nitrogen 7 mg/dl (7-17); Carbon Dioxide 20 mmol/L (22-30); Chloride 110 mmol/L (98-107); Estimated Creatinine Clearance > 125 ml/min; Glucose 91 mg/dl (70-99); Potassium 3.8 mmol/L (3.5-5.1); Sodium 138 mmol/L (135-145); Total Bilirubin 0.5 mg/dl (0.2-1.3); Total Protein 6.1 g/dl (6.3-8.2); eGFR > 60.00
--- NOTE | 2023-08-15 10:07 | W.PN.GI.CBS2 ---
Today's Communication / Plan
-
Plan:
-Continue Protonix drip. Would then keep on chronic PPI.
-Monitor H&H and transfuse as needed
-N.p.o.
-Watch for signs of ETOH withdrawal
-No plans for upper endoscopy at this time given the possibility of pneumomediastinum.
-Recommend eventual EGD in the future as outpatient for eval for EOE.
-Pneumomediastinum noted on CT scan, currently getting antibiotic coverage and hospitalist team in touch with thoracic surgery at [facility] for possible transfer.
Plan is for repeat esophagram on Wednesday.
-Elevated LFTs, underlying fatty liver noted. Daily alcohol use.
Hepatitis serology is pending but needs outpatient follow-up.
Assessment / Plan
-
42-year-old female with past medical history of asthma, hyperlipidemia, anxiety and depression presents to the emergency room with hematemesis and right-sided chest discomfort. Asked to evaluate for the same. Patient states that she has a
longstanding history of intermittent dysphagia associated with foods such as steak. She states that this has been ongoing since a child. She states that it was usually when she would eat fast as a child. Now only happens approximately 3-4 times a
year mostly associated with steak. She has had to force regurgitate this in the past. She states the last episode was approximately 3 to 4 months ago. She states yesterday she was eating shrimp with broccoli with how special rice and she was
eating this fast. She felt it get stuck in her throat in the mid epigastric area. She then proceeded to drink water and felt a pain that came across the right side of her chest and felt as if it 'stretched something across her right side'. She
then quickly vomited up the food by sticking her fingers down her throat. This relieved some of the pressure in her esophagus however the discomfort in the right side of her chest remained. This was somewhat alleviated. She states then an hour or
so later she felt very nauseous, clammy and a feeling as if a hot wave came over her. She then proceeded to have 2 episodes of bright red blood vomitus. And 1 episode of black stool. She then started having further discomfort in the right side of
her chest and she proceeded to come to the emergency room. She is still having this discomfort at the present time. She is also having radiating discomfort to her right shoulder. She has had no further episodes of vomiting or stools. Patient was
CT of the chest abdomen pelvis showing mild circumferential wall thickening throughout the mid and distal esophagus with suggestion of intramural edema at the right posterior lateral distal esophagus wall and small amount of paraesophageal complex
fluid or hemorrhage. The findings in conjunction with patient history suggestive of acute Norma-Eckert tear. Small hiatal hernia. Possible minimal pneumomediastinum. Patient presents with WBC of 17.7, hemoglobin initially of 12.2 down to 10.3,
hematocrit 34.9 now down to 29.3, platelets 294, PT 14.9, INR 1.16, sodium 140, potassium 4.2, chloride 110, CO2 23, BUN 21, creatinine 0.6, glucose 115, total bilirubin 0.8, AST 49, ALT 99, alk phos 58, albumin 3.8.
Impression:
Hematemesis, likely associated with Norma-Eckert tear
Intermittent dysphagia, patient with episodes of this since she was a child with history of underlying asthma. ? Question eosinophilic esophagitis
Possible pneumomediastinum seen on CT imaging, patient also with right chest discomfort radiating to right shoulder
ETOH use
Fatty liver on Imaging
Plan:
-Continue Protonix drip. Would then keep on chronic PPI.
-Monitor H&H and transfuse as needed
-N.p.o.
-Watch for signs of ETOH withdrawal
-No plans for upper endoscopy at this time given the possibility of pneumomediastinum.
-Recommend eventual EGD in the future as outpatient for eval for EOE.
-Pneumomediastinum noted on CT scan, currently getting antibiotic coverage and hospitalist team in touch with thoracic surgery at [facility] for possible transfer.
Plan is for repeat esophagram on Wednesday.
-Elevated LFTs, underlying fatty liver noted. Daily alcohol use.
Hepatitis serology is pending but needs outpatient follow-up.
Subjective
Subjective
Date of Service: August 15, 2023
Patient continues to have chest pain in the right side. No further hematemesis or melena. No bowel movements at all since admission.
Objective
Data Reviewed
Laboratory Data:
Laboratory Results
08/15/23 05:09
08/15/23 09:06
Laboratory Results
PT 14.9 Sec (11.4-14.6) H 08/14/23 04:35
INR 1.16 08/14/23 04:35
Total Bilirubin 0.5 mg/dl (0.2-1.3) 08/15/23 09:06
AST 52 U/L (14-36) H 08/15/23 09:06
ALT 86 U/L (0-35) H 08/15/23 09:06
Alkaline Phosphatase 58 U/L (38-126) 08/15/23 09:06
Lipase Cancelled 08/13/23 21:56
Vital Signs and I&O:
Vital Signs
Temp Pulse Resp BP Pulse Ox
98.5 F 87 16 159/98 94
08/15/23 08:03 08/15/23 06:00 08/15/23 06:00 08/15/23 06:00 08/15/23 06:00
I&O
08/14/23 08/15/23 08/16/23
06:59 06:59 06:59
Intake Total 1949 180 / 180
Balance 1949 180 / 180
Physical Exam
Physical Exam
GI: Soft and Non Distended
[2023-08-15] MEDS: ADVAIR HFA 115/21 MCG INHALER 2 PUFF INH ×2 (10:30→20:10)
[2023-08-15] MEDS: DIFLUCAN 200 MG 100 IV (14:03)
[2023-08-15] MEDS: FOLVITE 50.2000000000000028 MG IV (15:37)
--- NOTE | 2023-08-15 17:23 | W.PN.HOSP.TC ---
Today's Communication/Plan
-
Repeat esophagram tomorrow
Doing better less pain
Maintain strict NPO
Assessment / Plan
Assessment / Plan
Physical Exam
General: Intermittent distress due to pain
HEENT: Normocephalic
Respiratory: Clear to Auscultation Bilaterally
Cardiac: S1/S2, Regular Rhythm, Regular Rate
GI: Soft, Non Distended and Mild Epigastric Tenderness
Musculoskeletal: No Edema
Skin: Warm and Dry
Neuro: AAO x 3 and Nonfocal/grossly intact
Psych: Good Insight.

42-year-old female with past medical history of intermittent dysphagia for decades, asthma, hyperlipidemia, anxiety and depression presented to the emergency room with hematemesis and right-sided chest discomfort. Patient
stated that yesterday she was eating shrimp with broccoli with special rice when she felt it get stuck in her throat in the mid epigastric area. She then drank water, but the water did not work, so she induced vomiting (which was nonbloody) and had
some right-sided chest pain. She then went to run some errands outside, came back and spontaneously vomited bright red colored blood, but then also had subsequent several episodes of vomiting during which she vomited maroon-colored blood. She also
had dark-colored stool. Around that time she also felt very nauseous, clammy and a feeling as if a hot wave came over her. She had additional maroon-colored vomiting with clots, which she described as leeches. She smokes 1 cigarette a day. Per GI
report, she has a prior history of cocaine abuse and quit/went to rehab 3 years ago. She states she has been clean ever since. She does occasionally use marijuana. She denies any fevers, hematochezia, early satiety, unintentional weight loss. In
the ER per vital signs record: afebrile, tachycardic, blood pressure mostly stable, some tachypnea and saturating well on room air. Labs showed WBC 17.7, immature granulocytes, Hgb 12.2 but later dropped to 10.3, platelets 294, INR ~1.5, calcium now
8.1 with albumin 3.8, AST in the 40s to 50s range, ALT 110 to 90s,
Diagnostic Image Results (as per radiologists' report)
CT chest abdomen and pelvis 08/14/2023:
IMPRESSION:
CHEST:
1. Mild circumferential wall thickening throughout the mid and distal esophagus with suggestion of intramural edema in the right posterolateral distal esophageal wall and a small amount of paraesophageal complex fluid or hemorrhage. The findings
in conjunction with the patient history are most suggestive of an ACUTE GLADYS-ROBELRO TEAR.
2. Small hiatal hernia.
3. Possible minimal pneumomediastinum.
ABDOMEN and PELVIS:
1. SEVERE DIFFUSE HEPATIC STEATOSIS and mild hepatomegaly.
2. No CT evidence for ascites or pneumoperitoneum.
3. Small bilateral nonobstructing intrarenal calculi.
4. IUD in the uterus.
A preliminary interpretation was provided by [facility] teleradiology service. The preliminary report was discussed with Seferino Agustin DO of the Emergency Department at 11:59 PM on 08/13/2023.
Single contrast esophagram 08/14/23 (as per radiologist's report):
IMPRESSION:
Normal.Single contrast Omnipaque 240 mg /ml esophagram was performed demonstrating the esophagus to be normal in architecture and motility with no evidence of esophageal tear. There is no evidence of stricture, obstruction or neoplasm.
Contrast passed normally into the stomach with no evidence of extraluminal extravasation.
Prior GI Procedures:
EGD: Never had
Colonoscopy: Never had
Hematemesis, likely associated with Gladys-Roblero tear
Intermittent dysphagia since patient's childhood
Possible pneumomediastinum seen on CT imaging, patient also with right chest discomfort radiating to right shoulder
- Type and screen obtained and patient consent obtained for blood
- Trend Hgb
- Continue Protonix Drip
- Strict NPO
- Continue IV Zosyn
- Continue IV Diflucan
- GI consulted, recommendations appreciated
- No plans for upper endoscopy at this time given the possibility of pneumomediastinum.
- Recommend eventual EGD in the future as outpatient for eval for EOE.
- Zofran prn and AVOID ANY RETCHING
- Case discussed with cardiothoracic surgeon Dr. Mic Gentile as well as gastroenterology team: cardiothoracic surgery recommended transferring the patient to a tertiary care center, they also mentioned they don't do any esophageal surgery here
- On August 14, 2023, Cardiothoracic surgeon Dr. Mic Gentile and myself spoke to Dr. Mejia, cardiothoracic surgeon at [facility], and after discussing case with him we decided together that no transfer needed for now (but transfer acutely if patient were
to decompensate) and recommended IV fluids, IV Zosyn, IV Fluconazole, NPO, repeat esophagram in 2 days, and continue monitoring the patient closely.
- Repeat esophagogram tomorrow
Alcohol Use
Fatty Liver/Severe Hepatic Steatosis
- Monitor for alcohol withdrawal with MSAS prn Ativan protocol
Anxiety/ Depression
- Held OP Meds for now due to strict NPO
Hyperlipidemia
- Held Statin due to strict NPO
History of COPD?
Asthma History?
Current smoker
-Continue home breathing treatments
History of Cocaine Use
Current Marijuana Use
DVT Prophylaxis: SCDs; hold chemical DVT prophylaxis due to bleeding and anemia
Code Status: Full code
Possible pneumomediastinum with likely acute blood loss anemia needing monitoring in the IMU is a high-encounter.
Anticipated Discharge: > 48 hours
Subjective/Interval History
-
Date of Service: August 15, 2023
Patient was seen and examined. She reported that her pain has improved.
Objective Data
-
Labs:
Laboratory Results
08/15/23 08/15/23
05:09 09:06
WBC 6.9
Hgb 8.8 L
Hct 25.9 L
Plt Count 175 D
Sodium 138
Potassium 3.8
Chloride 110 H
Carbon Dioxide 20 L
BUN 7
Creatinine 0.6
Glucose 91
Calcium 8.0 L
Total Bilirubin 0.5 0.5
AST 50 H 52 H
ALT 83 H 86 H
Alkaline Phosphatase 58 58
Vital Signs:
Vital Signs
Temp Pulse Resp BP Pulse Ox
98.5 F 94 19 128/87 96
08/15/23 15:45 08/15/23 14:00 08/15/23 14:00 08/15/23 14:00 08/15/23 13:00
I&O
08/14/23 08/15/23 08/16/23
06:59 06:59 06:59
Intake Total 1949 910 / 910
Balance 1949 910 / 910
--- NOTE | 2023-08-15 20:20 | PTCARENOTE ---
risk assessment analyst, aaox3, pt c/o ongoing slight discomfort under R breast and associated with previous vomiting prior to admit. pt requiring prn ativan for msas protocol. B/L IV patent- NSS and protonix gtt infusing per work list. POC discussed, call
beltre with pt.
[2023-08-16] VITALS (14 sets, daily range): BP systolic 120–157; BP diastolic 82–110; BMI 35.2
[2023-08-16] MEDS: THIAMINE INJECTION 200 MG IV ×3 (00:17→17:10)
[2023-08-16] MEDS: ZOSYN 50 IV ×4 (00:17→17:10)
[2023-08-16 03:57] LABS: % Eosinophils 5.3 % (0-6); % Immature Granulocytes 1.9 % (0-0.5); % Lymphocytes 22.2 % (20.5-51.1); % Neutrophils 63.6 % (42.2-75.2); Absolute Basophils 0.1 10^3/uL (0-0.2); Absolute Eosinophils 0.4 10^3/uL (0-0.7); Absolute Immature Granulocytes 0.1 10^3/uL (0-0.05); Absolute Lymphocytes 1.6 10^3/uL (1.2-3.4); Absolute Monocytes 0.4 10^3/uL (0.1-0.6); Absolute Neutrophils 4.7 10^3/uL (1.4-6.5); Hematocrit 27.6 % (37.0-47.0); Mean Corp Hgb Conc. 32.6 g/dL (33.0-37.0); Mean Corpuscular Hgb 30.7 pg (27.0-31.0); Mean Corpuscular Volume 94.2 fL (81.0-99.0); Mean Platelet Volume 11.2 fL (7.4-10.4); Nucleated Red Blood Cells % 0 %; Platelet Count 199 10^3/uL (130-400); Red Blood Cell Count 2.93 10^6/uL (4.20-5.40); Red Cell Dist. Width 13.1 % (11.5-14.5); White Blood Cell Count 7.4 10^3/uL (4.8-10.8)
[2023-08-16] MEDS: PROTONIX 100 IV ×2 (04:02→11:23)
[2023-08-16] MEDS: NSS 1000 IV ×2 (04:02→17:09)
[2023-08-16 04:12] LABS: ALT (SGPT) 83 U/L (0-35); AST (SGOT) 58 U/L (14-36); Albumin 3.9 g/dl (3.5-5.0); Alkaline Phosphatase 54 U/L (38-126); Blood Urea Nitrogen 6 mg/dl (7-17); Calcium 8.6 mg/dl (8.4-10.2); Carbon Dioxide 16 mmol/L (22-30); Chloride 109 mmol/L (98-107); Estimated Creatinine Clearance > 125 ml/min; Glucose 92 mg/dl (70-99); Potassium 3.7 mmol/L (3.5-5.1); Sodium 138 mmol/L (135-145); Total Bilirubin 0.5 mg/dl (0.2-1.3); Total Protein 6.4 g/dl (6.3-8.2); eGFR > 60.00
[2023-08-16] MEDS: ADVAIR HFA 115/21 MCG INHALER 2 PUFF INH ×2 (08:06→19:49)
--- NOTE | 2023-08-16 08:15 | W.PN.HOSP.TC ---
Addendum entered and electronically signed by Jeison Torres MD 08/16/23 17:38:
Adjust dx:
Alcohol abuse with mild withdrawal
Original Note:
Today's Communication/Plan
-
Maintain n.p.o./antibiotics or antifungal
Repeat double contrast esophagram ordered
Assessment / Plan
Assessment / Plan
CT chest abdomen and pelvis 08/14/2023:
CHEST:
1. Mild circumferential wall thickening throughout the mid and distal esophagus with suggestion of intramural edema in the right posterolateral distal esophageal wall and a small amount of paraesophageal complex fluid or hemorrhage. The findings
in conjunction with the patient history are most suggestive of an ACUTE GLADYS-BA TEAR.
2. Small hiatal hernia.
3. Possible minimal pneumomediastinum.
ABDOMEN and PELVIS:
1. SEVERE DIFFUSE HEPATIC STEATOSIS and mild hepatomegaly.
2. No CT evidence for ascites or pneumoperitoneum.
3. Small bilateral nonobstructing intrarenal calculi.
4. IUD in the uterus.
Single contrast esophagram 08/14/23 (as per radiologist's report):
IMPRESSION:
Normal.Single contrast Omnipaque 240 mg /ml esophagram was performed demonstrating the esophagus to be normal in architecture and motility with no evidence of esophageal tear. There is no evidence of stricture, obstruction or neoplasm.
Contrast passed normally into the stomach with no evidence of extraluminal extravasation.

Hematemesis from Gladys ba tear
Contained esophageal perforation and pneumomediastinum
Acute blood loss anemia
Intermittent dysphagia since patient's childhood
-CT chest abdomen pelvis and esophagogram report as above
-GI/cardiothoracic surgeon evaluated patient
-Currently patient on Protonix drip
-Maintain n.p.o.
-On IV Zosyn/Diflucan for antibiotic coverage with pneumomediastinum
-Dr. Irizarry/Dr. Gentile talked to [facility] cardiothoracic surgeon over weekend, who recommended conservative management with transfer to [facility] if patient have any clinical worsening
-Repeat esophagogram ordered
Alcohol Use
Fatty Liver/Severe Hepatic Steatosis
-No signs of active withdrawal at this point
-Continue MSAS and as needed Ativan
Anxiety/ Depression
- Held OP Meds for now due to strict NPO
Hyperlipidemia
- Held Statin due to strict NPO
Current smoker
-Continue home breathing treatments
History of Cocaine Use
Current Marijuana Use
DVT Prophylaxis: SCDs; hold chemical DVT prophylaxis due to bleeding and anemia
Code Status: Full code
Anticipated Discharge: Within 24 hours
Subjective/Interval History
-
Date of Service: August 16, 2023
seen and examined
reported black stool overnight
right below breast pain is better
some nausea, no vomiting
Objective Data
-
Labs:
Laboratory Results
08/16/23
03:15
WBC 7.4
Hgb 9.0 L
Hct 27.6 L
Plt Count 199
Sodium 138
Potassium 3.7
Chloride 109 H
Carbon Dioxide 16 L
BUN 6 L
Creatinine 0.6
Glucose 92
Calcium 8.6
Total Bilirubin 0.5
AST 58 H
ALT 83 H
Alkaline Phosphatase 54
Vital Signs:
Vital Signs
Temp Pulse Resp BP Pulse Ox
97.9 F 93 18 153/89 96
08/16/23 07:41 08/16/23 08:12 08/16/23 08:12 08/16/23 06:00 08/16/23 08:12
I&O
08/15/23 08/16/23 08/17/23
06:59 06:59 06:59
Intake Total 1949
Balance 1949
Review of Systems
-
Respiratory: Reports No Symptoms
Cardiac: Reports No Symptoms
Abdomen/GI: Reports Abdominal Pain, Nausea and Black Stools; Denies Vomiting
Physical Exam
-
General: Comfortable and Obese
HEENT: Negative Oxygen
Respiratory: Clear to Auscultation
Cardiac: Regular Rhythm, S1/S2 and Tachycardic; Negative Murmur or Rub
GI: Soft, Nondistended and Tender (RUQ)
Musculoskeletal: No Edema
Neuro: Awake, Alert, Oriented, No Motor Deficits and Nonfocal/Grossly Intact
Psych: Calm
--- NOTE | 2023-08-16 08:30 | PTCARENOTE ---
Received pt @ change of shift. AAOx3, denies pain. SR on monitor. SpO2 98% on RA. +BS, abd soft/nt. NPO status maintained. Int nausea. Cont b/b. Assisted into BR to void and AM hygiene care. Assisted into chair s/p BR and pt. tolerating chair
position. #20 L wrist w IVF and #20 R hand a protonix gtt. Instructed on how to report care concerns and call beltre place w in reach.
[2023-08-16] MEDS: FOLVITE PO (08:46)
[2023-08-16] MEDS: FOLVITE 50.2000000000000028 MG IV (09:43)
--- NOTE | 2023-08-16 12:15 | W.PN.GI.CBS2 ---
Today's Communication / Plan
-
Plan:
-No further coffee-ground emesis or drop in hemoglobin, BUN normal
-Okay to switch to Protonix 40 mg IV twice daily and eventually when able to take p.o., okay for 40 mg p.o. twice daily for 8 weeks and then once a day thereafter.
-Monitor H&H and transfuse as needed
-Diet as per thoracic surgery recommendations. Esophagram this morning normal. No restriction with diet from a GI standpoint. Would start on clear liquid diet and advance as tolerated.
-No plans for urgent upper endoscopy at this time but will follow-up in the office and schedule her for EGD.
-Avoid NSAIDs.
-Recommend eventual EGD in the future as outpatient for eval for EOE.
-Pneumomediastinum noted on CT scan, currently getting antibiotic coverage and hospitalist team in touch with thoracic surgery at [facility]
-Elevated LFTs, underlying fatty liver noted. Daily alcohol use.
Hepatitis serology is pending but needs outpatient follow-up.
No further GI recommendation, will follow-up as outpatient
Assessment / Plan
-
42-year-old female with past medical history of asthma, hyperlipidemia, anxiety and depression presents to the emergency room with hematemesis and right-sided chest discomfort. Asked to evaluate for the same. Patient states that she has a
longstanding history of intermittent dysphagia associated with foods such as steak. She states that this has been ongoing since a child. She states that it was usually when she would eat fast as a child. Now only happens approximately 3-4 times a
year mostly associated with steak. She has had to force regurgitate this in the past. She states the last episode was approximately 3 to 4 months ago. She states yesterday she was eating shrimp with broccoli with how special rice and she was
eating this fast. She felt it get stuck in her throat in the mid epigastric area. She then proceeded to drink water and felt a pain that came across the right side of her chest and felt as if it 'stretched something across her right side'. She
then quickly vomited up the food by sticking her fingers down her throat. This relieved some of the pressure in her esophagus however the discomfort in the right side of her chest remained. This was somewhat alleviated. She states then an hour or
so later she felt very nauseous, clammy and a feeling as if a hot wave came over her. She then proceeded to have 2 episodes of bright red blood vomitus. And 1 episode of black stool. She then started having further discomfort in the right side of
her chest and she proceeded to come to the emergency room. She is still having this discomfort at the present time. She is also having radiating discomfort to her right shoulder. She has had no further episodes of vomiting or stools. Patient was
CT of the chest abdomen pelvis showing mild circumferential wall thickening throughout the mid and distal esophagus with suggestion of intramural edema at the right posterior lateral distal esophagus wall and small amount of paraesophageal complex
fluid or hemorrhage. The findings in conjunction with patient history suggestive of acute Norma-Eckert tear. Small hiatal hernia. Possible minimal pneumomediastinum. Patient presents with WBC of 17.7, hemoglobin initially of 12.2 down to 10.3,
hematocrit 34.9 now down to 29.3, platelets 294, PT 14.9, INR 1.16, sodium 140, potassium 4.2, chloride 110, CO2 23, BUN 21, creatinine 0.6, glucose 115, total bilirubin 0.8, AST 49, ALT 99, alk phos 58, albumin 3.8.
Impression:
Hematemesis, likely associated with Norma-Eckert tear
Intermittent dysphagia, patient with episodes of this since she was a child with history of underlying asthma. ? Question eosinophilic esophagitis
Possible pneumomediastinum seen on CT imaging, patient also with right chest discomfort radiating to right shoulder
ETOH use
Fatty liver on Imaging
Plan:
-No further coffee-ground emesis or drop in hemoglobin, BUN normal
-Okay to switch to Protonix 40 mg IV twice daily and eventually when able to take p.o., okay for 40 mg p.o. twice daily for 8 weeks and then once a day thereafter.
-Monitor H&H and transfuse as needed
-Diet as per thoracic surgery recommendations. Esophagram this morning normal. No restriction with diet from a GI standpoint. Would start on clear liquid diet and advance as tolerated.
-No plans for urgent upper endoscopy at this time but will follow-up in the office and schedule her for EGD.
-Avoid NSAIDs.
-Recommend eventual EGD in the future as outpatient for eval for EOE.
-Pneumomediastinum noted on CT scan, currently getting antibiotic coverage and hospitalist team in touch with thoracic surgery at [facility]
-Elevated LFTs, underlying fatty liver noted. Daily alcohol use.
Hepatitis serology is pending but needs outpatient follow-up.
Subjective
Subjective
Date of Service: August 16, 2023
Patient had 2 dark bowel movements today, no abdominal pain, nausea or vomiting.
Objective
Data Reviewed
Laboratory Data:
Laboratory Results
08/16/23 03:15
08/16/23 03:15
Laboratory Results
PT 14.9 Sec (11.4-14.6) H 08/14/23 04:35
INR 1.16 08/14/23 04:35
Total Bilirubin 0.5 mg/dl (0.2-1.3) 08/16/23 03:15
AST 58 U/L (14-36) H 08/16/23 03:15
ALT 83 U/L (0-35) H 08/16/23 03:15
Alkaline Phosphatase 54 U/L (38-126) 08/16/23 03:15
Lipase Cancelled 08/13/23 21:56
Vital Signs and I&O:
Vital Signs
Temp Pulse Resp BP Pulse Ox
97.9 F 89 16 147/95 98
08/16/23 07:41 08/16/23 10:00 08/16/23 10:00 08/16/23 10:00 08/16/23 10:51
I&O
08/15/23 08/16/23 08/17/23
06:59 06:59 06:59
Intake Total 1949 / 2349 360 / 360
Balance 1949 360 / 360
Physical Exam
Physical Exam
GI: Soft, Non Distended and Non Tender
--- NOTE | 2023-08-16 12:51 | PTCARENOTE ---
Pt. transported to x-ray for esophagram and back to rm [id number] this AM. Results reviewed by GI and hospitalist. Diet advanced to clear liq, lunch tray ordered, tolerating ice chips thus far. Denies nausea; no vomiting. Assisted back to chair s/p
x-ray. #20 R hand d/c'd d/t painful flushing. #20 R wrist inserted and protonix gtt switched to new IV. Call beltre remains w in reach.
--- NOTE | 2023-08-16 14:06 | PN.CDI ---
CDI
- -
CDI:
Physician Documentation Request
Admit Date: 08/14/23 04:10
Dear Doctor Brian,
Please review the following and provide your response in the progress notes.
Clinical Indicators:
PN, 08/14
#Alcohol Use
#Fatty Liver/Severe Hepatic Steatosis
#...- Monitor for alcohol withdrawal with MSAS prn Ativan protocol
Selected Entries
08/15/23
05:30 08/15/23
09:00 08/15/23
20:12
MSAS SCORE 5 8 8
Selected Entries
08/15/23
05:30 08/15/23
09:00 08/15/23
20:12
Agitation 2 = Restless,
fidgety 2 = Restless,
fidgety 2 = Restless,
fidgety
Tremor 1 = Not visible
, but can 2 = Mild,
visible tremor 2 = Mild,
visible tremor
Medications
Lorazepam (Lorazepam 1 Mg/Ml Vial) 1 mg IV Q1HPRN PRN
PRN Reason: MSAS 8-11
Stop: 09/11/23 04:20
Last Admin: 08/15/23 20:17 Dose: 1 mg
Lorazepam
08/14 5:25 1 mg IV
08/14 9:25 1 mg IV
08/14 20:17 1 mg IV
Please provide further specificity as outlined below:
Alcohol abuse with withdrawal
Alcohol abuse only
Other(please specify)
Use of terms such as suspected, likely, concern for, or probable (associated with a specific diagnosis that is being evaluated, monitored, or treated as if it exists) are acceptable and can be coded in the inpatient setting, when documented at the
time of discharge.
Thank you,
Abbi Clancy RN BSN CCDS
CDI Specialist
please contact via tiger text
Please use your independent medical judgment in providing your response.
[2023-08-16] MEDS: DIFLUCAN 200 MG 100 IV (14:08)
--- NOTE | 2023-08-16 14:23 | CON.ID ---
Consultation
-
Date/Time Consultation Requested: 08/16/2023 12:15
Date/Time Consultation Performed: 08/16/2023 14:25
Requesting Provider: Dr. Torres
Performing Provider: Dr. Sarkar
Reason for Consultation: Esophegeal tear
Chief Complaint / Past History
History of Present Illness
Maryam De La Rosa is a 42-year-old female being evaluated at the request of Dr. Torres in regards to esophageal tear. History is obtained from chart review, along with patient interview. Patient has a significant past medical history of anxiety and
depression, and presented to [facility] on 08/13/2023 following the development of nausea and vomiting at home. According to reviewed ER notes she was eating around 2 PM and felt like food had gotten stuck in her esophagus. She then vomited
and saw some blood. Later in the evening she continued to not feel well and she began vomiting again and this time she saw bright red blood. She also reported pain in the right upper quadrant of her abdomen, and noticed some of her stool was black.
Workup in the ER included CT scanning which revealed a mediastinum. She was started on empiric antibiotics and Infectious Diseases is asked to comment upon further antimicrobial therapy.
Past History
Additional Past Medical History:
Asthma
Dyslipidemia
Anxiety/depression
Additional Past Surgical History:
Sinus surgery
Bilateral carpal tunnel release
Allergy History:
No Known Allergies Allergy (Verified 08/13/23 21:47)
Medications Reviewed: Yes
Current Antibiotics:
Zosyn 3.375 gm IV q6h
Diflucan 100 mg IV q24h
Social History
Tobacco: Smoker
Alcohol: Daily
Drug: None
Personal: Single
Living: Homeless
Employment: Not Employed
Family History
Family History: Not Pertinent
Review of Systems
Vital Signs
Temp Pulse Resp BP Pulse Ox
98.5 F 94 17 147/95 95
08/16/23 12:31 08/16/23 12:00 08/16/23 12:00 08/16/23 10:00 08/16/23 12:00
Physical Exam
Physical Exam
Constitutional: No Acute Distress, Well Developed, Comfortable and Non-toxic
Head: Normocephalic
Eyes: Pupils Equal, Pupils Round, No Conjunctival Hemorrhage and Sclera Anicteric
Oral: No Thrush and No Ulcers
Cardiovascular: Regular Rate and S1/S2; Negative S3/S4 or Murmur
Pulmonary: Clear; Negative Wheezes, Rales or Rhonchi
Gastrointestinal: Soft, Non Tender, Non Distended, Normal Bowel Sounds, No Rebound and No Guarding
Genito-Urinary: Negative Rosenberg
Extremities: Negative Edema, Cyanosis or Erythema
Neurological: Awake and Alert
Psychological: Calm
Lab / Diagnostic Study Results
08/16/23 03:15
08/16/23 03:15
Abs Immat Gran (auto) 0.1 10^3/uL (0-0.05) H 08/16/23 03:15
Absolute Neuts (auto) 4.7 10^3/uL (1.4-6.5) 08/16/23 03:15
Absolute Lymphs (auto) 1.6 10^3/uL (1.2-3.4) 08/16/23 03:15
Absolute Monos (auto) 0.4 10^3/uL (0.1-0.6) 08/16/23 03:15
Absolute Basos (auto) 0.1 10^3/uL (0-0.2) 08/16/23 03:15
Immature Gran % 1.9 % (0-0.5) H 08/16/23 03:15
Neutrophils % 63.6 % (42.2-75.2) 08/16/23 03:15
Lymphocytes % 22.2 % (20.5-51.1) 08/16/23 03:15
Monocytes % 6.0 % (1.7-9.3) 08/16/23 03:15
Eosinophils % 5.3 % (0-6) 08/16/23 03:15
Basophils % 1.0 % (0-2) 08/16/23 03:15
PT 14.9 Sec (11.4-14.6) H 08/14/23 04:35
INR 1.16 08/14/23 04:35
Microbiology Results
Imaging:
08/16/2023 RF esophagus: No evidence of extravasation to suggest esophageal tear. No stricture, web, neoplasm or diverticulum.
08/14/23 RF esophagus: Contrast passed normally into the stomach with no evidence of extraluminal extravasation.
08/13/2023 CT chest: 1. Mild circumferential wall thickening throughout the mid and distal esophagus with suggestion of intramural edema in the right posterolateral distal esophageal wall and a small amount of paraesophageal complex fluid or
hemorrhage. The findings in conjunction with the patient history are most suggestive of an ACUTE NORMA-ROBLERO TEAR. 2. Small hiatal hernia. 3. Possible minimal pneumomediastinum with suspicion for a minimal amount of pneumomediastinum in the
right side of the posterior mediastinum adjacent to the extraluminal fluid.,
Assessment / Plan
Hematemesis
Vomiting with likely Norma-Roblero tear
Possible pneumomediastinum
Leukocytosis; improved
Anemia
Transaminitis
Asthma
Dyslipidemia
Anxiety/depression
Recommendations:
Continue with Zosyn and Diflucan for the present.
Increase Diflucan to 400 mg IV q 24 hours.
Will continue to follow clinically. Given possibility of esophageal perforation and mediastinitis, patient may need a course of IV antibiotics.
Will continue to follow clinically.
--- NOTE | 2023-08-16 15:37 | W.PN.UPDATE ---
Update Note
Progress Note Update
Pt seen, reviewed with nursing staff. Pt sitting up in chair, reports feeling better, was able to start clear liquids today. Pt reports cont'd melena, diagnosed with esophageal tear. Pt states she had swallowed a large bolus of food, then drank a
quantity of water to try to clear it from her esophagus. Pt alert, calm, pleasant, with no signs of alcohol withdrawal. MSAS has been low, no Ativan has been given. Pt has been followed at [facility] for depression, has been on temporary
disability. She reports Wellbutrin XL was increased, which was starting to help. Pt is also on Trintellix 20 mg QD and unclear dose of Seroquel at . Pt reports she last took psychotropic meds 4 days ago.
Imp: Depressive d/o, unspecified
alcohol abuse
Rec: Will resume psychotropic medications. Need to confirm dose of Seroquel. Will start Wellbutrin XL at lower dose due to concern for possibility of alcohol withdrawal
Psychiatry will follow
--- NOTE | 2023-08-16 16:07 | CM ---
CM reviewed chrt, downgrade to tele from IMU level of care
Continues on MSAS protocol
ID following and noted potential need for IV abx
CM will continue to follow for dc planning
Discharge Disposition- home, follow of IV abx needs
[2023-08-16] MEDS: NSS (PRESERVATIVE FREE) 10 ML IV (19:56)
[2023-08-16] MEDS: PROTONIX IV 40 MG IV (19:56)
[2023-08-16] MEDS: SEROQUEL 100 MG PO (21:28)
--- NOTE | 2023-08-16 22:54 | PTCARENOTE ---
Rec'd pt resting in bed, in good spirits. Afebrile. NSR. BP stable. IV lines flushed/patent. IVF d/c'd 2/2 tolerating clears. Voids in BR. Seroquel ordered as requested. Will monitor.
[2023-08-17] MEDS: THIAMINE INJECTION 200 MG IV (00:21)
[2023-08-17] MEDS: ZOSYN 50 IV ×4 (00:22→17:00)
[2023-08-17 05:43] LABS: % Basophils 0.5 % (0-2); % Eosinophils 6.2 % (0-6); % Lymphocytes 25.1 % (20.5-51.1); % Monocytes 5.9 % (1.7-9.3); % Neutrophils 60.3 % (42.2-75.2); Absolute Eosinophils 0.4 10^3/uL (0-0.7); Absolute Immature Granulocytes 0.1 10^3/uL (0-0.05); Absolute Lymphocytes 1.5 10^3/uL (1.2-3.4); Absolute Monocytes 0.4 10^3/uL (0.1-0.6); Absolute Neutrophils 3.7 10^3/uL (1.4-6.5); Hematocrit 26.5 % (37.0-47.0); Hemoglobin 8.8 g/dL (12.0-16.0); Mean Corp Hgb Conc. 33.2 g/dL (33.0-37.0); Mean Corpuscular Hgb 31.5 pg (27.0-31.0); Mean Platelet Volume 10.7 fL (7.4-10.4); Nucleated Red Blood Cells % 0.5 %; Platelet Count 193 10^3/uL (130-400); Red Blood Cell Count 2.79 10^6/uL (4.20-5.40); Red Cell Dist. Width 13.2 % (11.5-14.5); White Blood Cell Count 6.1 10^3/uL (4.8-10.8)
[2023-08-17 06:14] LABS: ALT (SGPT) 75 U/L (0-35); AST (SGOT) 57 U/L (14-36); Albumin 3.8 g/dl (3.5-5.0); Alkaline Phosphatase 60 U/L (38-126); Blood Urea Nitrogen 6 mg/dl (7-17); Calcium 9.1 mg/dl (8.4-10.2); Carbon Dioxide 19 mmol/L (22-30); Chloride 113 mmol/L (98-107); Estimated Creatinine Clearance 116 ml/min; Glucose 104 mg/dl (70-99); Potassium 3.6 mmol/L (3.5-5.1); Sodium 139 mmol/L (135-145); Total Bilirubin 0.5 mg/dl (0.2-1.3); Total Protein 6.3 g/dl (6.3-8.2); eGFR > 60.00
[2023-08-17] MEDS: ADVAIR HFA 115/21 MCG INHALER 2 PUFF INH ×2 (07:45→19:35)
--- NOTE | 2023-08-17 07:51 | W.PN.ID1 ---
Date of Service
Date of Service: August 17, 2023
Today's Communication
Continue abx.
Assessment / Plan
Hematemesis
Vomiting with likely Norma-Eckert tear
Possible pneumomediastinum
Leukocytosis; improved
Anemia
Transaminitis
Asthma
Dyslipidemia
Anxiety/depression
Recommendations:
Continue with Zosyn (d#4) and Diflucan (d#2) for the present.
CT finding with minimal findings, and no esophageal perforation delineated on esophagram (x 2), so it is not clear if a prolonged course of IV abx is necessary.
Overall, would continue with IV antibiotics for another 2 days, with transition to oral therapy thereafter.
Would repeat CT scanning of the lower esophageal area in the next day or so to confirm no developing collection of. If none seen, can likely transition to an therapy.
����������������������������������������������������������
Chief Complaint
-: Other (Norma-Eckert tear)
Subjective / Review of Systems
Patient seen and examined. Reports still some ongoing right thoracic discomfort behind the inferior portion of the right rib cage.
Review of Systems: No Fever and No Chills
Vital Signs / Physical Exam
Vital Signs
Vital Signs
Temp Pulse Resp BP Pulse Ox
98.5 F 84 28 124/90 97
08/17/23 07:50 08/17/23 06:00 08/17/23 06:00 08/16/23 22:00 08/17/23 06:00
Physical Exam
Constitutional: No Acute Distress, Comfortable and Non-toxic
Eyes: No Conjunctival Hemorrhage and Sclera Anicteric
Cardiovascular: S1/S2; Negative S3/S4
Pulmonary: Clear and Non Labored
Gastrointestinal: Soft, Non Tender, Non Distended and Normal Bowel Sounds
Neurological: Awake and Alert
Psychological: Calm
Objective Data
Lab Data
Lab Results
08/17/23 05:34
08/17/23 05:34
PT 14.9 Sec (11.4-14.6) H 08/14/23 04:35
INR 1.16 08/14/23 04:35
Estimated Creat Clear 116 ml/min 08/17/23 05:34
Total Bilirubin 0.5 mg/dl (0.2-1.3) 08/17/23 05:34
AST 57 U/L (14-36) H 08/17/23 05:34
ALT 75 U/L (0-35) H 08/17/23 05:34
Alkaline Phosphatase 60 U/L (38-126) 08/17/23 05:34
Most recent labs reviewed.
Imaging:
08/16/2023 RF esophagus: No evidence of extravasation to suggest esophageal tear. No stricture, web, neoplasm or diverticulum.
08/14/23 RF esophagus: Contrast passed normally into the stomach with no evidence of extraluminal extravasation.
08/13/2023 CT chest: 1. Mild circumferential wall thickening throughout the mid and distal esophagus with suggestion of intramural edema in the right posterolateral distal esophageal wall and a small amount of paraesophageal complex fluid or
hemorrhage. The findings in conjunction with the patient history are most suggestive of an ACUTE NORMA-ECKERT TEAR. 2. Small hiatal hernia. 3. Possible minimal pneumomediastinum with suspicion for a minimal amount of pneumomediastinum in the
right side of the posterior mediastinum adjacent to the extraluminal fluid.,
[2023-08-17] MEDS: PROTONIX IV 40 MG IV ×2 (08:06→21:09)
[2023-08-17] MEDS: FOLVITE 1 MG PO (08:07)
[2023-08-17] MEDS: NSS (PRESERVATIVE FREE) 10 ML IV ×2 (08:07→21:09)
[2023-08-17] MEDS: VITAMIN B1 100 MG PO ×2 (08:07→21:08)
[2023-08-17 08:13] VITALS: BP 137/95
--- NOTE | 2023-08-17 09:26 | W.PN.HOSP.TC ---
Today's Communication/Plan
-
another day of IV abx
start on FL diet
start home meds back
Assessment / Plan
Assessment / Plan
CT chest abdomen and pelvis 08/14/2023:
CHEST:
1. Mild circumferential wall thickening throughout the mid and distal esophagus with suggestion of intramural edema in the right posterolateral distal esophageal wall and a small amount of paraesophageal complex fluid or hemorrhage. The findings
in conjunction with the patient history are most suggestive of an ACUTE GLADYS-ECKERT TEAR.
2. Small hiatal hernia.
3. Possible minimal pneumomediastinum.
ABDOMEN and PELVIS:
1. SEVERE DIFFUSE HEPATIC STEATOSIS and mild hepatomegaly.
2. No CT evidence for ascites or pneumoperitoneum.
3. Small bilateral nonobstructing intrarenal calculi.
4. IUD in the uterus.
Single contrast esophagram 08/14/23 (as per radiologist's report):
IMPRESSION:
Normal.Single contrast Omnipaque 240 mg /ml esophagram was performed demonstrating the esophagus to be normal in architecture and motility with no evidence of esophageal tear. There is no evidence of stricture, obstruction or neoplasm.
Contrast passed normally into the stomach with no evidence of extraluminal extravasation.

Hematemesis from Gladys Eckert tear
Suspected contained esophageal perforation and pneumomediastinum
Acute blood loss anemia
Intermittent dysphagia since patient's childhood
-CT chest abdomen pelvis and esophagogram report as above
-GI/cardiothoracic surgeon evaluated patient and plan for patient to be monitored with conservative managment.
-Dr. Collado/Dr. Gentile talked to [facility] cardiothoracic surgeon over weekend, who recommended conservative management with transfer to [facility] if patient have any clinical worsening
-On IV Zosyn/Diflucan for antibiotic coverage with pneumomediastinum, ID involved in care for further recommendation
-Repeat esophagogram did not show any esophageal perf/tear.
-Gi changed patient to CL diet and BID PPI.
-No new complains today and some right lower rib pain, which is better than at presentation. Change to FL diet
Alcohol Use disorder
Mild alcohol withdrawal
Fatty Liver/Severe Hepatic Steatosis
-No signs of active withdrawal at this point
-Stop further MSAS and as needed Ativan
Anxiety/ Depression
- resume back home meds
Hyperlipidemia
- resume back statin
Current smoker
-Continue home breathing treatments
History of Cocaine Use
Current Marijuana Use
DVT Prophylaxis: SCDs; hold chemical DVT prophylaxis due to bleeding and anemia
Code Status: Full code
Patient high risk for complication with pneumomediastinum/suspected esophageal perf.
Case discussed at length with ID doctor.
Anticipated Discharge: 24 - 48 hours
Subjective/Interval History
-
Date of Service: August 17, 2023
denies of having any problems
no other issues
Objective Data
-
Labs:
Laboratory Results
08/17/23
05:34
WBC 6.1
Hgb 8.8 L
Hct 26.5 L
Plt Count 193
Sodium 139
Potassium 3.6
Chloride 113 H
Carbon Dioxide 19 L
BUN 6 L
Creatinine 0.7
Glucose 104 H
Calcium 9.1
Total Bilirubin 0.5
AST 57 H
ALT 75 H
Alkaline Phosphatase 60
Vital Signs:
Vital Signs
Temp Pulse Resp BP Pulse Ox
98.5 F 90 15 124/90 96
08/17/23 07:50 08/17/23 07:53 08/17/23 07:53 08/16/23 22:00 08/17/23 07:53
I&O
08/16/23 08/17/23 08/18/23
06:59 06:59 06:59
Intake Total 0 / 2350 1839
Balance 0 / 0 1839
Review of Systems
-
Respiratory: Reports No Symptoms
Cardiac: Reports No Symptoms
Abdomen/GI: Reports No Symptoms
Physical Exam
-
General: Comfortable and Obese
HEENT: Negative Oxygen
Respiratory: Clear to Auscultation
Cardiac: Regular Rhythm, S1/S2 and Tachycardic; Negative Murmur or Rub
GI: Soft, Nondistended and Tender (RUQ)
Musculoskeletal: No Edema
Neuro: Awake, Alert, Oriented, No Motor Deficits and Nonfocal/Grossly Intact
Psych: Calm
[2023-08-17] MEDS: WELLBUTRIN XL (24 hour extended release) 300 MG PO (10:22)
[2023-08-17] MEDS: DIFLUCAN 400 MG 200 IV (13:05)
[2023-08-17 14:44] LABS: Hepatitis B Surface Antigen Negative (Negative)
[2023-08-17 14:45] VITALS: BP 152/87
[2023-08-17 15:01] LABS: Hepatitis C Antibody Negative (Negative)
--- NOTE | 2023-08-17 15:14 | CM ---
CM following re: discharge planning.
Reviewed pt's chart, met with pt.
Pt is downgraded from ICU level of care. per ID pt will need IV antibiotics for 2 days and will be switched to PO.
Psychiatry evaluations noted - following for h/o depression and alcohol abuse.
Pt is referred to [facility], spoke to [facility] Amadeo and he will meet with pt tomorrow morning.
D/C plan: home with [facility] to follow. [facility] will assist with inpatient D&A rehab treatment if pt agrees.
CM will follow with discharge plan updates as hospitalization progresses
[2023-08-17] MEDS: LIPITOR 10 MG PO (17:00)
[2023-08-17 17:17] LABS: Hepatitis B Surface Antibody Indeterminate
[2023-08-17 18:09] LABS: Hepatitis A IgM Antibody Negative (Negative); Hepatitis B Core Ab, IgM Negative (Negative)
--- NOTE | 2023-08-17 18:19 | PTCARENOTE ---
Received patient from ICU this am awake and alert. Denies any pain or discomfort. Able to make needs known . Tolerating full liquids.
[2023-08-17 19:30] VITALS: BP 135/61
[2023-08-17] MEDS: SEROQUEL 100 MG PO (21:07)
[2023-08-17] MEDS: DILAUDID 0.25 MG IV (21:14)
[2023-08-17 22:51] VITALS: BP 114/65
[2023-08-18] MEDS: ZOSYN 50 IV ×5 (00:28→23:30)
[2023-08-18 03:36] VITALS: BP 105/67
[2023-08-18] MEDS: DILAUDID 0.25 MG IV ×4 (06:16→21:14)
[2023-08-18 06:55] LABS: % Basophils 0.9 % (0-2); % Eosinophils 9.1 % (0-6); % Immature Granulocytes 3.3 % (0-0.5); % Lymphocytes 28.7 % (20.5-51.1); Absolute Basophils 0.1 10^3/uL (0-0.2); Absolute Eosinophils 0.6 10^3/uL (0-0.7); Absolute Immature Granulocytes 0.2 10^3/uL (0-0.05); Absolute Lymphocytes 1.9 10^3/uL (1.2-3.4); Absolute Monocytes 0.5 10^3/uL (0.1-0.6); Absolute Neutrophils 3.4 10^3/uL (1.4-6.5); Hematocrit 28.6 % (37.0-47.0); Hemoglobin 9.4 g/dL (12.0-16.0); Mean Corp Hgb Conc. 32.9 g/dL (33.0-37.0); Mean Corpuscular Hgb 31.4 pg (27.0-31.0); Mean Corpuscular Volume 95.7 fL (81.0-99.0); Mean Platelet Volume 10.7 fL (7.4-10.4); Nucleated Red Blood Cells % 0.6 %; Platelet Count 211 10^3/uL (130-400); Red Blood Cell Count 2.99 10^6/uL (4.20-5.40); Red Cell Dist. Width 13.7 % (11.5-14.5); White Blood Cell Count 6.6 10^3/uL (4.8-10.8)
[2023-08-18 07:00] VITALS: BP 127/71
[2023-08-18 07:23] LABS: ALT (SGPT) 80 U/L (0-35); AST (SGOT) 60 U/L (14-36); Albumin 3.8 g/dl (3.5-5.0); Alkaline Phosphatase 60 U/L (38-126); Blood Urea Nitrogen 6 mg/dl (7-17); Calcium 9.3 mg/dl (8.4-10.2); Carbon Dioxide 24 mmol/L (22-30); Chloride 110 mmol/L (98-107); Estimated Creatinine Clearance 101 ml/min; Glucose 107 mg/dl (70-99); Potassium 3.6 mmol/L (3.5-5.1); Sodium 142 mmol/L (135-145); Total Bilirubin 0.4 mg/dl (0.2-1.3); Total Protein 6.4 g/dl (6.3-8.2); eGFR > 60.00
[2023-08-18] MEDS: VITAMIN B1 100 MG PO ×2 (08:18→21:15)
[2023-08-18] MEDS: FOLVITE 1 MG PO (08:18)
[2023-08-18] MEDS: WELLBUTRIN XL (24 hour extended release) 300 MG PO (08:18)
[2023-08-18] MEDS: NSS (PRESERVATIVE FREE) 10 ML IV ×2 (08:18→21:15)
[2023-08-18] MEDS: PROTONIX IV 40 MG IV ×2 (08:19→21:15)
[2023-08-18] MEDS: ADVAIR HFA 115/21 MCG INHALER 2 PUFF INH ×2 (08:19→19:31)
[2023-08-18 11:00] VITALS: BP 140/89
--- NOTE | 2023-08-18 12:44 | W.PN.ID1 ---
Date of Service
Date of Service: August 18, 2023
Today's Communication
Continue with Zosyn (d#5) and Diflucan (d#3).
Assessment / Plan
Hematemesis
Vomiting with likely Norma-Eckert tear
Possible pneumomediastinum
Leukocytosis; improved
Anemia
Transaminitis
Asthma
Dyslipidemia
Anxiety/depression
Recommendations:
Continue with Zosyn (d#5) and Diflucan (d#3).
CT finding with minimal findings, and no esophageal perforation delineated on esophagram (x 2), so it is not clear if a prolonged course of IV abx is necessary.
For repeat CT today. If minimal/no additional findings, will transition to oral Augmentin and Diflucan, to continue with an additional 10 days of therapy.
����������������������������������������������������������
Chief Complaint
-: Other (Norma-Eckert tear)
Subjective / Review of Systems
Patient seen and examined. Reports some ongoing right thoracic discomfort. No pain noted with eating or drinking.
Vital Signs / Physical Exam
Vital Signs
Vital Signs
Temp Pulse Resp BP Pulse Ox
97.7 F 90 18 140/89 98
08/18/23 11:00 08/18/23 11:00 08/18/23 11:00 08/18/23 11:00 08/18/23 11:00
Physical Exam
Constitutional: No Acute Distress, Comfortable and Non-toxic
Eyes: Sclera Anicteric
Pulmonary: Clear and Non Labored
Gastrointestinal: Non Distended
Skin: Negative Rash or Jaundice
Neurological: Awake and Alert
Psychological: Calm
Objective Data
Lab Data
Lab Results
08/18/23 06:36
08/18/23 06:36
PT 14.9 Sec (11.4-14.6) H 08/14/23 04:35
INR 1.16 08/14/23 04:35
Estimated Creat Clear 101 ml/min 08/18/23 06:36
Total Bilirubin 0.4 mg/dl (0.2-1.3) 08/18/23 06:36
AST 60 U/L (14-36) H 08/18/23 06:36
ALT 80 U/L (0-35) H 08/18/23 06:36
Alkaline Phosphatase 60 U/L (38-126) 08/18/23 06:36
Most recent labs reviewed.
Imaging:
08/16/2023 RF esophagus: No evidence of extravasation to suggest esophageal tear. No stricture, web, neoplasm or diverticulum.
08/14/23 RF esophagus: Contrast passed normally into the stomach with no evidence of extraluminal extravasation.
08/13/2023 CT chest: 1. Mild circumferential wall thickening throughout the mid and distal esophagus with suggestion of intramural edema in the right posterolateral distal esophageal wall and a small amount of paraesophageal complex fluid or
hemorrhage. The findings in conjunction with the patient history are most suggestive of an ACUTE NORMA-ECKERT TEAR. 2. Small hiatal hernia. 3. Possible minimal pneumomediastinum with suspicion for a minimal amount of pneumomediastinum in the
right side of the posterior mediastinum adjacent to the extraluminal fluid.,
--- NOTE | 2023-08-18 13:29 | CM ---
Patient seen at bedside. Patient stated she did not anticipate meeting with [facility], but [facility] today. Patient stated she is still awaiting results from testing. CM will continue to follow for
discharge planning needs.
Plan; [facility] pending assessment
[2023-08-18] MEDS: DIFLUCAN 400 MG 200 IV (13:31)
--- NOTE | 2023-08-18 13:37 | W.PN.UPDATE ---
Update Note
Progress Note Update
patient seen chart reviewed. patient is feeling much better certainly compared to the time of admission. she gave me some of the history of the traumas she has experienced in her life which are documented in dr osullivan's psychiatric evaluation. we
discussed the issue of mirna ba tear, pneumomediastinum etc etc. tried to focus on the etoh use and its seriousness given her medical conditions. she does seem to embrace the need for sobrietyu. . she has beaten addiction before...in the past
cocaine from which sober for three years but recent stressors led her to excess etoh use. she has an addictions counselor. she has attended [facility] in the past and found it helpful. she was leaning towards out pt rx but would like to speak w sidney
to discuss options. re her psych meds. would keep the wellbutrin at 300 mg for now given issues w sz and etoh wd. if she is to remain her for any length of time she should bring in her supply of trintellix to start . if dc is in the next day or
two that would not be necessary. did not make any changes in her meds. she did not appear to be in acute withdrawal . will follow
[2023-08-18 15:56] VITALS: BP 138/95
--- NOTE | 2023-08-18 17:12 | W.PN.HOSP.TC ---
Today's Communication/Plan
-
advance to soft diet
CT chest reviewed
possible discharge in AM
Assessment / Plan
Assessment / Plan
CT chest abdomen and pelvis 08/14/2023:
CHEST:
1. Mild circumferential wall thickening throughout the mid and distal esophagus with suggestion of intramural edema in the right posterolateral distal esophageal wall and a small amount of paraesophageal complex fluid or hemorrhage. The findings
in conjunction with the patient history are most suggestive of an ACUTE GLADYS-ECKERT TEAR.
2. Small hiatal hernia.
3. Possible minimal pneumomediastinum.
ABDOMEN and PELVIS:
1. SEVERE DIFFUSE HEPATIC STEATOSIS and mild hepatomegaly.
2. No CT evidence for ascites or pneumoperitoneum.
3. Small bilateral nonobstructing intrarenal calculi.
4. IUD in the uterus.
Single contrast esophagram 08/14/23 (as per radiologist's report):
IMPRESSION:
Normal.Single contrast Omnipaque 240 mg /ml esophagram was performed demonstrating the esophagus to be normal in architecture and motility with no evidence of esophageal tear. There is no evidence of stricture, obstruction or neoplasm.
Contrast passed normally into the stomach with no evidence of extraluminal extravasation.

Hematemesis from Gladys Eckert tear
Suspected contained esophageal perforation and pneumomediastinum
Acute blood loss anemia
Intermittent dysphagia since patient's childhood
-CT chest abdomen pelvis and esophagogram report as above
-GI/cardiothoracic surgeon evaluated patient and plan for patient to be monitored with conservative managment.
-Dr. Collado/Dr. Gentile talked to [facility] cardiothoracic surgeon over weekend, who recommended conservative management with transfer to [facility] if patient have any clinical worsening
-On IV Zosyn/Diflucan for antibiotic coverage with pneumomediastinum, ID involved in care for further recommendation
-Repeat esophagogram did not show any esophageal perf/tear.
-Diet advanced to soft diet
-Patient was having some pain on right lower chest, repeat CT chest showed resolution of pneumomediastinum
Alcohol Use disorder
Mild alcohol withdrawal
Fatty Liver/Severe Hepatic Steatosis
-No signs of active withdrawal at this point
-Stop further MSAS and as needed Ativan
Anxiety/ Depression
- resume back home meds
Hyperlipidemia
- resume back statin
Current smoker
-Continue home breathing treatments
History of Cocaine Use
Current Marijuana Use
DVT Prophylaxis: SCDs- hold chemical DVT prophylaxis due to bleeding and anemia
Code Status: Full code
Anticipated Discharge: Within 24 hours
Subjective/Interval History
-
Date of Service: August 18, 2023
Complaining of some right sided chest pain, same area where patient was having pain at presentation
No nausea or vomiting
Denies bright red blood or melanotic stool
Objective Data
-
Labs:
Laboratory Results
08/18/23
06:36
WBC 6.6
Hgb 9.4 L
Hct 28.6 L
Plt Count 211
Sodium 142
Potassium 3.6
Chloride 110 H
Carbon Dioxide 24
BUN 6 L
Creatinine 0.8
Glucose 107 H
Calcium 9.3
Total Bilirubin 0.4
AST 60 H
ALT 80 H
Alkaline Phosphatase 60
Vital Signs:
Vital Signs
Temp Pulse Resp BP Pulse Ox
98.2 F 82 20 138/95 96
08/18/23 15:56 08/18/23 15:56 08/18/23 15:56 08/18/23 15:56 08/18/23 15:56
I&O
08/17/23 08/18/23 08/19/23
06:59 06:59 06:59
Intake Total 1839 1080 / 1080
Balance 1839 1080 / 1080
Review of Systems
-
Respiratory: Reports Pleurisy
Cardiac: Reports No Symptoms
Abdomen/GI: Reports No Symptoms
Physical Exam
-
General: Comfortable and Obese
HEENT: Negative Oxygen
Respiratory: Clear to Auscultation
Cardiac: Regular Rhythm, S1/S2 and Tachycardic; Negative Murmur or Rub
GI: Soft, Nondistended and Tender (RUQ)
Musculoskeletal: No Edema
Neuro: Awake, Alert, Oriented, No Motor Deficits and Nonfocal/Grossly Intact
Psych: Calm
[2023-08-18] MEDS: LIPITOR 10 MG PO (17:24)
[2023-08-18 19:36] VITALS: BP 120/93
[2023-08-18] MEDS: SEROQUEL 100 MG PO (21:15)
[2023-08-18 22:46] VITALS: BP 117/65
[2023-08-18] MEDS: NON-FORMULARY ITEM 20 MG PO (22:47)
[2023-08-19 03:37] VITALS: BP 118/73
[2023-08-19] MEDS: DILAUDID 0.25 MG IV ×2 (05:33→08:29)
[2023-08-19] MEDS: ZOSYN 50 IV ×3 (05:33→16:56)
[2023-08-19 07:00] VITALS: BP 115/82
[2023-08-19 07:22] LABS: % Lymphocytes 27.2 % (20.5-51.1); % Monocytes 7.5 % (1.7-9.3); % Neutrophils 51.3 % (42.2-75.2); Absolute Basophils 0.1 10^3/uL (0-0.2); Absolute Eosinophils 0.7 10^3/uL (0-0.7); Absolute Immature Granulocytes 0.2 10^3/uL (0-0.05); Absolute Lymphocytes 1.9 10^3/uL (1.2-3.4); Absolute Monocytes 0.5 10^3/uL (0.1-0.6); Absolute Neutrophils 3.6 10^3/uL (1.4-6.5); Hematocrit 27.3 % (37.0-47.0); Hemoglobin 9.1 g/dL (12.0-16.0); Mean Corp Hgb Conc. 33.3 g/dL (33.0-37.0); Mean Corpuscular Hgb 31.9 pg (27.0-31.0); Mean Corpuscular Volume 95.8 fL (81.0-99.0); Mean Platelet Volume 11.1 fL (7.4-10.4); Nucleated Red Blood Cells % 0.3 %; Platelet Count 220 10^3/uL (130-400); Red Blood Cell Count 2.85 10^6/uL (4.20-5.40); Red Cell Dist. Width 13.8 % (11.5-14.5); White Blood Cell Count 7.1 10^3/uL (4.8-10.8)
[2023-08-19 07:37] LABS: ALT (SGPT) 88 U/L (0-35); AST (SGOT) 63 U/L (14-36); Alkaline Phosphatase 61 U/L (38-126); Blood Urea Nitrogen 7 mg/dl (7-17); Calcium 9.6 mg/dl (8.4-10.2); Carbon Dioxide 23 mmol/L (22-30); Chloride 107 mmol/L (98-107); Estimated Creatinine Clearance 101 ml/min; Glucose 103 mg/dl (70-99); Potassium 3.7 mmol/L (3.5-5.1); Sodium 140 mmol/L (135-145); Total Bilirubin 0.3 mg/dl (0.2-1.3); Total Protein 6.5 g/dl (6.3-8.2); eGFR > 60.00
[2023-08-19] MEDS: FOLVITE 1 MG PO (07:50)
[2023-08-19] MEDS: VITAMIN B1 100 MG PO ×2 (07:50→20:28)
[2023-08-19] MEDS: WELLBUTRIN XL (24 hour extended release) 300 MG PO (07:50)
[2023-08-19] MEDS: NSS (PRESERVATIVE FREE) 10 ML IV ×2 (07:50→20:28)
[2023-08-19] MEDS: PROTONIX IV 40 MG IV ×2 (07:50→20:28)
[2023-08-19] MEDS: ADVAIR HFA 115/21 MCG INHALER 2 PUFF INH ×2 (08:40→21:05)
--- NOTE | 2023-08-19 08:49 | PTCARENOTE ---
pt aaox3. states 8/10 pain in under right breast. states she feels its a bruise inside from vomiting. pain med given as ordered. room air breath sounds clear. pt tolerating current diet with no swallowing difficulties. denies any n/v.
[2023-08-19 11:00] VITALS: BP 122/91
[2023-08-19] MEDS: ROXICODONE 10 MG PO ×3 (11:57→21:58)
--- NOTE | 2023-08-19 13:08 | W.PN.UPDATE ---
Update Note
Progress Note Update
patient seen chart reviewed. discussed with nursing. the patient may be dc today or tomorrow. the ? is whether she needs another day of iv antibioitics so ID will need tdo weight in . she is in good spirits more or less. she was able to get
trintellix brought in and is back on it. there is no sign of etoh wd at this point. vital signs look good. she has decided to be dc to home and do out patient rx instead of in patient. reviewed with her that her etoh usage was indeed serious. she
told me about her dui which did not concern etoh but rather she was pulled over on the way home from work and she had already taken her hs meds including seroquel. she said she passed sobriety check but it was the of march and very cold
outside and the officer made her wait in his car with the hear blasting and she started to yawn whereupon he charged her w a dui. she had been stopped bc her brights were on as she was afraid of hitting a deer. urged her to call paralegal assistant to try
and get herself an health care attorney. she had been turned down for a PD since she gets too much disability money. at any rate it is hoped that if she relapses upon dc w etoh that she will consider going to in patient rehab at that point. continue current
psych meds. we will sign off.
--- NOTE | 2023-08-19 14:28 | W.PN.HOSP.TC ---
Today's Communication/Plan
-
discharge in AM
Assessment / Plan
Assessment / Plan
CT chest abdomen and pelvis 08/14/2023:
CHEST:
1. Mild circumferential wall thickening throughout the mid and distal esophagus with suggestion of intramural edema in the right posterolateral distal esophageal wall and a small amount of paraesophageal complex fluid or hemorrhage. The findings
in conjunction with the patient history are most suggestive of an ACUTE GLADYS-ECKERT TEAR.
2. Small hiatal hernia.
3. Possible minimal pneumomediastinum.
ABDOMEN and PELVIS:
1. SEVERE DIFFUSE HEPATIC STEATOSIS and mild hepatomegaly.
2. No CT evidence for ascites or pneumoperitoneum.
3. Small bilateral nonobstructing intrarenal calculi.
4. IUD in the uterus.
Single contrast esophagram 08/14/23 (as per radiologist's report):
IMPRESSION:
Normal.Single contrast Omnipaque 240 mg /ml esophagram was performed demonstrating the esophagus to be normal in architecture and motility with no evidence of esophageal tear. There is no evidence of stricture, obstruction or neoplasm.
Contrast passed normally into the stomach with no evidence of extraluminal extravasation.

Hematemesis from Gladys Eckert tear
Suspected contained esophageal perforation and pneumomediastinum
Acute blood loss anemia
Intermittent dysphagia since patient's childhood
-CT chest abdomen pelvis and esophagogram report as above
-GI/cardiothoracic surgeon evaluated patient and plan for patient to be monitored with conservative management.
-Dr. Collado/Dr. Gentile talked to [facility] cardiothoracic surgeon over weekend, who recommended conservative management with transfer to [facility] if patient have any clinical worsening
-Repeat esophagogram did not show any esophageal perf/tear.
-Diet advanced to soft diet
-Patient was having some pain on right lower chest, repeat CT chest showed resolution of pneumomediastinum
-Currently on IV Zosyn and baclofen, will be transition to oral antibiotics at discharge
Alcohol Use disorder
Mild alcohol withdrawal
Fatty Liver/Severe Hepatic Steatosis
-No signs of active withdrawal at this point
-Stop further MSAS and as needed Ativan
Anxiety/ Depression
- resume back home meds
Hyperlipidemia
- resume back statin
Current smoker
-Continue home breathing treatments
History of Cocaine Use
Current Marijuana Use
DVT Prophylaxis: SCDs- hold chemical DVT prophylaxis due to bleeding and anemia
Code Status: Full code
Anticipated Discharge: Within 24 hours
Subjective/Interval History
-
Date of Service: August 19, 2023
Complaining of some right lower rib pain
no chest tightness/palpitation
Objective Data
-
Labs:
Laboratory Results
08/19/23
06:34
WBC 7.1
Hgb 9.1 L
Hct 27.3 L
Plt Count 220
Sodium 140
Potassium 3.7
Chloride 107
Carbon Dioxide 23
BUN 7
Creatinine 0.8
Glucose 103 H
Calcium 9.6
Total Bilirubin 0.3
AST 63 H
ALT 88 H
Alkaline Phosphatase 61
Vital Signs:
Vital Signs
Temp Pulse Resp BP Pulse Ox
98.0 F 84 16 122/91 96
08/19/23 11:00 08/19/23 11:00 08/19/23 11:00 08/19/23 11:00 08/19/23 11:00
I&O
08/18/23 08/19/23 08/20/23
06:59 06:59 06:59
Intake Total 1080 / 1080 570 / 570 530 / 530
Balance 1080 / 1080 570 / 570 530 / 530
Review of Systems
-
Respiratory: Reports No Symptoms
Cardiac: Reports No Symptoms
Abdomen/GI: Reports No Symptoms
Physical Exam
-
General: Comfortable and Obese
HEENT: Negative Oxygen
Respiratory: Clear to Auscultation
Cardiac: Regular Rhythm, S1/S2 and Tachycardic; Negative Murmur or Rub
GI: Soft, Nondistended and Tender (RUQ)
Musculoskeletal: No Edema
Neuro: Awake, Alert, Oriented, No Motor Deficits and Nonfocal/Grossly Intact
Psych: Calm
[2023-08-19] MEDS: DIFLUCAN 400 MG 200 IV (14:53)
--- NOTE | 2023-08-19 14:57 | W.PN.ID1 ---
Date of Service
Date of Service: August 19, 2023
Today's Communication
Continue antibiotics.
Assessment / Plan
Hematemesis
Vomiting with likely Norma-Eckert tear
Possible pneumomediastinum
Leukocytosis; improved
Anemia
Transaminitis
Asthma
Dyslipidemia
Anxiety/depression
Recommendations:
Continue with Zosyn (d#6) and Diflucan (d#4).
At D/C, transition to oral Augmentin 875 mg BID and Diflucan 400 mg qDay, to continue with an additional 9 days of therapy.
����������������������������������������������������������
Chief Complaint
-: Other (Norma-Eckert tear)
Subjective / Review of Systems
Review of Systems: No Fever and No Chills
Vital Signs / Physical Exam
Vital Signs
Vital Signs
Temp Pulse Resp BP Pulse Ox
98.0 F 84 16 122/91 96
08/19/23 11:00 08/19/23 11:00 08/19/23 11:00 08/19/23 11:00 08/19/23 11:00
Physical Exam
Constitutional: No Acute Distress, Comfortable and Non-toxic
Eyes: Sclera Anicteric
Pulmonary: Non Labored
Neurological: Awake and Alert
Psychological: Calm
Objective Data
Lab Data
Lab Results
08/19/23 06:34
08/19/23 06:34
PT 14.9 Sec (11.4-14.6) H 08/14/23 04:35
INR 1.16 08/14/23 04:35
Estimated Creat Clear 101 ml/min 08/19/23 06:34
Total Bilirubin 0.3 mg/dl (0.2-1.3) 08/19/23 06:34
AST 63 U/L (14-36) H 08/19/23 06:34
ALT 88 U/L (0-35) H 08/19/23 06:34
Alkaline Phosphatase 61 U/L (38-126) 08/19/23 06:34
Most recent labs reviewed.
Imaging:
08/18/2023 CT chest with IV contrast: A linear bandlike area of parenchymal airspace disease in the right lower lobe is noted. Small hiatal hernia present on the previous exam has been reduced. No evidence of esophageal wall thickening or
pneumomediastinum.
08/16/2023 RF esophagus: No evidence of extravasation to suggest esophageal tear. No stricture, web, neoplasm or diverticulum.
08/14/23 RF esophagus: Contrast passed normally into the stomach with no evidence of extraluminal extravasation.
08/13/2023 CT chest: 1. Mild circumferential wall thickening throughout the mid and distal esophagus with suggestion of intramural edema in the right posterolateral distal esophageal wall and a small amount of paraesophageal complex fluid or
hemorrhage. The findings in conjunction with the patient history are most suggestive of an ACUTE NORMA-ECKERT TEAR. 2. Small hiatal hernia. 3. Possible minimal pneumomediastinum with suspicion for a minimal amount of pneumomediastinum in the
right side of the posterior mediastinum adjacent to the extraluminal fluid.,
[2023-08-19 15:00] VITALS: BP 128/75
--- NOTE | 2023-08-19 16:44 | CM ---
Abbie met with patient yesterday support information given per Amadeo and patient stated to CM she had a ride home but told physician she did not. Plan for discharge in am. CM will continue to follow for discharge planning needs.
Plan; home with ABBIE to follow up
[2023-08-19] MEDS: LIPITOR 10 MG PO (16:55)
[2023-08-19] MEDS: SEROQUEL 100 MG PO (21:58)
[2023-08-19] MEDS: NON-FORMULARY ITEM 20 MG PO (22:41)
[2023-08-19 23:17] VITALS: BP 131/83
[2023-08-20] MEDS: ZOSYN 50 IV ×2 (00:03→06:33)
[2023-08-20] MEDS: ROXICODONE 10 MG PO ×2 (06:34→11:23)
[2023-08-20 07:10] VITALS: BP 119/76
[2023-08-20 07:40] LABS: % Basophils 0.8 % (0-2); % Eosinophils 9.4 % (0-6); % Immature Granulocytes 2.5 % (0-0.5); % Lymphocytes 27.4 % (20.5-51.1); % Monocytes 7.1 % (1.7-9.3); % Neutrophils 52.8 % (42.2-75.2); Absolute Basophils 0.1 10^3/uL (0-0.2); Absolute Eosinophils 0.7 10^3/uL (0-0.7); Absolute Immature Granulocytes 0.2 10^3/uL (0-0.05); Absolute Monocytes 0.5 10^3/uL (0.1-0.6); Absolute Neutrophils 3.8 10^3/uL (1.4-6.5); Hematocrit 28.6 % (37.0-47.0); Hemoglobin 9.3 g/dL (12.0-16.0); Mean Corp Hgb Conc. 32.5 g/dL (33.0-37.0); Mean Corpuscular Hgb 31.5 pg (27.0-31.0); Mean Corpuscular Volume 96.9 fL (81.0-99.0); Mean Platelet Volume 10.8 fL (7.4-10.4); Nucleated Red Blood Cells % 0 %; Platelet Count 246 10^3/uL (130-400); Red Blood Cell Count 2.95 10^6/uL (4.20-5.40); Red Cell Dist. Width 13.6 % (11.5-14.5); White Blood Cell Count 7.2 10^3/uL (4.8-10.8)
[2023-08-20 08:36] LABS: ALT (SGPT) 98 U/L (0-35); AST (SGOT) 70 U/L (14-36); Albumin 4.4 g/dl (3.5-5.0); Alkaline Phosphatase 57 U/L (38-126); Blood Urea Nitrogen 10 mg/dl (7-17); Calcium 9.8 mg/dl (8.4-10.2); Carbon Dioxide 25 mmol/L (22-30); Chloride 105 mmol/L (98-107); Estimated Creatinine Clearance 90 ml/min; Glucose 105 mg/dl (70-99); Sodium 141 mmol/L (135-145); Total Bilirubin 0.5 mg/dl (0.2-1.3); Total Protein 6.8 g/dl (6.3-8.2); eGFR > 60.00
[2023-08-20] MEDS: ADVAIR HFA 115/21 MCG INHALER 2 PUFF INH (08:38)
[2023-08-20] MEDS: FOLVITE 1 MG PO (09:07)
[2023-08-20] MEDS: VITAMIN B1 100 MG PO (09:07)
[2023-08-20] MEDS: WELLBUTRIN XL (24 hour extended release) 300 MG PO (09:07)
[2023-08-20] MEDS: NSS (PRESERVATIVE FREE) 10 ML IV (09:08)
[2023-08-20] MEDS: PROTONIX IV 40 MG IV (09:09)
--- NOTE | 2023-08-20 10:01 | CM ---
Patient confirmed that she has a ride and has the information from [facility]. CM will continue to follow for discharge planning needs.
Plan; home with follow up as outpatient with [facility]
[2023-08-20 12:41] VITALS: BP 141/86
--- NOTE | 2023-08-20 15:17 | W.PN.HOSP.TC ---
Today's Communication/Plan
-
d/c home
Assessment / Plan
Assessment / Plan
CT chest abdomen and pelvis 08/14/2023:
CHEST:
1. Mild circumferential wall thickening throughout the mid and distal esophagus with suggestion of intramural edema in the right posterolateral distal esophageal wall and a small amount of paraesophageal complex fluid or hemorrhage. The findings
in conjunction with the patient history are most suggestive of an ACUTE GLADYS-ECKERT TEAR.
2. Small hiatal hernia.
3. Possible minimal pneumomediastinum.
ABDOMEN and PELVIS:
1. SEVERE DIFFUSE HEPATIC STEATOSIS and mild hepatomegaly.
2. No CT evidence for ascites or pneumoperitoneum.
3. Small bilateral nonobstructing intrarenal calculi.
4. IUD in the uterus.
Single contrast esophagram 08/14/23 (as per radiologist's report):
IMPRESSION:
Normal.Single contrast Omnipaque 240 mg /ml esophagram was performed demonstrating the esophagus to be normal in architecture and motility with no evidence of esophageal tear. There is no evidence of stricture, obstruction or neoplasm.
Contrast passed normally into the stomach with no evidence of extraluminal extravasation.

Hematemesis from Gladys Eckert tear
Suspected contained esophageal perforation and pneumomediastinum
Acute blood loss anemia
Intermittent dysphagia since patient's childhood
-CT chest abdomen pelvis and esophagogram report as above
-GI/cardiothoracic surgeon evaluated patient and plan for patient to be monitored with conservative management.
-Dr. Collado/Dr. Gentile talked to [facility] cardiothoracic surgeon over weekend, who recommended conservative management with transfer to [facility] if patient have any clinical worsening
-Repeat esophagogram did not show any esophageal perf/tear.
-Diet advanced to soft diet
-Patient was having some pain on right lower chest, repeat CT chest showed resolution of pneumomediastinum
-Currently on IV Zosyn and baclofen, will be transitioned to oral Augmentin and Diflucan.
Alcohol Use disorder
Mild alcohol withdrawal
Fatty Liver/Severe Hepatic Steatosis
-No signs of active withdrawal at this point
-Stop further MSAS and as needed Ativan
Anxiety/ Depression
- resume back home meds
Hyperlipidemia
- resume back statin
Current smoker
-Continue home breathing treatments
History of Cocaine Use
Current Marijuana Use
DVT Prophylaxis: SCDs- hold chemical DVT prophylaxis due to bleeding and anemia
Code Status: Full code
Anticipated Discharge: Today
Subjective/Interval History
-
Date of Service: August 20, 2023
no issues overnight
right side chest pain better
Objective Data
-
Labs:
Laboratory Results
08/20/23
07:21
WBC 7.2
Hgb 9.3 L
Hct 28.6 L
Plt Count 246
Sodium 141
Potassium 4.0
Chloride 105
Carbon Dioxide 25
BUN 10
Creatinine 0.9
Glucose 105 H
Calcium 9.8
Total Bilirubin 0.5
AST 70 H
ALT 98 H
Alkaline Phosphatase 57
Vital Signs:
Vital Signs
Temp Pulse Resp BP Pulse Ox
98.4 F 98 18 141/86 99
08/20/23 12:41 08/20/23 12:41 08/20/23 12:41 08/20/23 12:41 08/20/23 12:41
I&O
06/13/24 06/14/24 06/15/24
06:59 06:59 06:59
Intake Total 570 / 570 1660 / 1710 50 / 50
Balance 570 / 570 1660 / 1710 50 / 50
Review of Systems
-
Respiratory: Reports No Symptoms
Cardiac: Reports No Symptoms
Abdomen/GI: Reports No Symptoms
Physical Exam
-
General: Comfortable and Obese
HEENT: Negative Oxygen
Respiratory: Clear to Auscultation
Cardiac: Regular Rhythm, S1/S2 and Tachycardic; Negative Murmur or Rub
GI: Soft, Nondistended and Tender (RUQ)
Musculoskeletal: No Edema
Neuro: Awake, Alert, Oriented, No Motor Deficits and Nonfocal/Grossly Intact
Psych: Calm
--- NOTE | 2023-08-22 13:43 | W.DCSUMMARY ---
Discharge Summary
Discharge Data
Date of Admission: 08/14/23
Date of Discharge: 08/20/23
-
Pending Results: No
Hospital Course
Discharging Physician : Dr Jeison Torres
Disposition : Home
Primary care physician : Dr Jennifer Mccloud
Principal Discharge diagnosis :
Hematemesis from Norma-Roblero tear
Presumed contained esophageal perforation and pneumomediastinum
Acute blood loss anemia
Alcohol use disorder and withdrawal
Chronic Discharge diagnosis :
Anxiety/depression
Hyperlipidemia
Tobacco use
History of cocaine/marijuana use
Hospital Course :
Patient is a 42-year-old female with no mentioned past medical history came to ER for having new onset of blood containing vomitus. Patient had roughly 5 episodes of hematemesis with some clot, patient started having some right upper quadrant
abdominal pain followed by vomiting as well. Patient had a CT chest abdomen pelvis in ER which showed circumferential wall thickening throughout the mid and distal esophagus and mediastinal air. GI was involved in care and clinically there was
concern of acute Norma-Roblero tear and possible esophageal perforation. Patient was started on IV Protonix drip. For further evaluation cardiothoracic surgeon was involved in care who recommended possible transfer to higher level care for any
need of surgical intervention. Case was discussed with [facility] cardiothoracic surgeon who recommended for patient to be maintained on empiric antibacterial/antifungal therapy and monitoring at over weekend. Plan was for patient to be
transferred to [facility] for surgical evaluation if continued to have worsening symptoms. Fortunately patient symptoms started improving. A follow-up esophagogram was done and which did not show any leakage of contrast material. Patient did not
have any further episodes of hematemesis. Infection disease physicians were involved in care and patient was monitored in hospital another 72 hours on IV antibiotics. After clinical improvement at discharge patient was transition to oral Augmentin
and Diflucan therapy. Patient was slowly advanced on soft diet. Patient was educated to seek emergent medical advice if any further worsening of symptoms.
Patient also have problem with depression and alcohol use disorder. Patient have hepatic steatosis from alcohol use although no other complicating factor. Patient was maintained on as needed Ativan with MSAS scoring for mild alcohol withdrawal.
Post improvement of other medical problems initially patient was planned to be discharged to inpatient alcohol rehab although patient agreeable to follow-up outpatient alcohol rehab program. Supporting resources were provided.
Patient was discharged home at this point.
Important imaging findings :
CT chest abdomen and pelvis 08/14/2023:
CHEST:
1. Mild circumferential wall thickening throughout the mid and distal esophagus with suggestion of intramural edema in the right posterolateral distal esophageal wall and a small amount of paraesophageal complex fluid or hemorrhage. The findings
in conjunction with the patient history are most suggestive of an ACUTE NORMA-ROBLERO TEAR.
2. Small hiatal hernia.
3. Possible minimal pneumomediastinum.
ABDOMEN and PELVIS:
1. SEVERE DIFFUSE HEPATIC STEATOSIS and mild hepatomegaly.
2. No CT evidence for ascites or pneumoperitoneum.
3. Small bilateral nonobstructing intrarenal calculi.
4. IUD in the uterus.
Procedure findings :
None
Discharge Plan
-
Patient Disposition: Home (Routine Discharge)
Discharge Diagnosis/Procedures: Pneumo-mediastinum, Suspected esophageal perforation
Condition: Fair
Diet: Other diet
Additional Diets: Mechanical soft diet - for 7 days. Avoid alcohol use,
Activity: As tolerated
Driving Restrictions: No driving
Bathing Restrictions: OK to Shower
Referrals:
Jennifer Mccloud MD [Family Provider] - in one week
Polina Bledsoe MD [Active] - in four to six weeks
Prescriptions:
New
oxycodone 5 mg Tablet
5 mg PO Q8HPRN PRN (Reason: mod sev pain) Qty: 14 0RF
acetaminophen [Tylenol Extra Strength] 500 mg tablet
1,000 mg PO TID Qty: 60 0RF
pantoprazole 40 mg tablet,delayed release (DR/EC)
40 mg PO BID Qty: 60 1RF
fluconazole [Diflucan] 200 mg tablet
400 mg PO DAILY 9 Days Qty: 18 0RF
amoxicillin-pot clavulanate 875-125 mg tablet
1 tab PO BID 9 Days Qty: 18 0RF
Continued
fluticasone propion-salmeterol [Advair Diskus] 250-50 mcg/dose Blister With Device
1 inh INHALATION DAILY
atorvastatin 10 mg Tablet
10 mg PO QPM
albuterol sulfate 90 mcg/actuation Hfa Aerosol Inhaler
1 puff INHALATION PRN PRN (Reason: sob)
bupropion HCl 300 mg Tablet Extended Release 24 Hr
300 mg PO DAILY
Trintellix 20 mg Tablet
20 mg PO DAILY
quetiapine
1 tab PO DAILY
Patient Comments:
pt does not know mg
ipratropium-albuterol 0.5 mg-3 mg(2.5 mg base)/3 mL Solution For Nebulization
3 ml INHALATION Q4H PRN (Reason: sob)
Discharge Orders:
Discharge Patient (As Directed); Ordered 08/20/23
Ordered By: Jeison Torres
Discharge Date and Time
Discharge Date/Time: 08/20/23 12:41
Print Language: ROMANIAN
== END 2023-08-20 12:41 | disposition home or self-care (01) | DRG 369 ==
LOC: 4 WEST ACU 04:10
PROVIDERS: Hospitalist; Nurse Practitioner; Student in an Organized Health Care Education/Training Program; ADMITTING PHYSICIAN Internal Medicine; ATTENDING PHYSICIAN Hospitalist; CONSULT PHYSICIAN Internal Medicine Gastroenterology; CONSULT PHYSICIAN Internal Medicine Infectious Disease; CONSULT PHYSICIAN Psychiatry & Neurology Psychiatry; EMERGENCY PHYSICIAN Emergency Medicine; FAMILY PHYSICIAN Emergency Medicine
DX: K22.6 Gastro-esophageal laceration-hemorrhage syndrome (principal); D62 Acute posthemorrhagic anemia; F10.139 Alcohol abuse with withdrawal, unspecified; F33.2 Major depressive disorder, recurrent severe without psychotic features; Z59.00 Homelessness unspecified; K22.3 Perforation of esophagus; K92.0 Hematemesis; F17.210 Nicotine dependence, cigarettes, uncomplicated; E78.00 Pure hypercholesterolemia, unspecified; J44.89 Other specified chronic obstructive pulmonary disease; F41.9 Anxiety disorder, unspecified; F14.11 Cocaine abuse, in remission; K76.0 Fatty (change of) liver, not elsewhere classified; R16.0 Hepatomegaly, not elsewhere classified; R74.01 Elevation of levels of liver transaminase levels; D72.829 Elevated white blood cell count, unspecified; N20.0 Calculus of kidney; K44.9 Diaphragmatic hernia without obstruction or gangrene; F12.90 Cannabis use, unspecified, uncomplicated; J98.2 Interstitial emphysema; F43.10 Post-traumatic stress disorder, unspecified; Z91.410 Personal history of adult physical and sexual abuse; Z79.51 Long term (current) use of inhaled steroids
CPT/HCPCS: 71260; 74177; 74220; 80053; 80076; 84703; 85014; 85018; 85025; 85610; 86705; 86706; 86709; 86803; 86850; 86900; 86901; 87340; 93005; 94640; 96361; 96365; 96366; 96367; 96375; 99291; 99292; Q9967

== ENCOUNTER → 2023-11-23 06:19 | Day surgery (SDC) | payer OTHER, SELFPAY | LOC: GI 06:19 | PROVIDERS: ATTENDING PHYSICIAN Internal Medicine Gastroenterology | DX: K22.89 Other specified disease of esophagus (principal); K44.9 Diaphragmatic hernia without obstruction or gangrene; R13.10 Dysphagia, unspecified; K21.00 Gastro-esophageal reflux disease with esophagitis, without bleeding | CPT/HCPCS: 43239; 88305; 88342 ==

== ENCOUNTER 2024-07-19 23:20 | Emergency (ER) | payer OTHER, SELFPAY ==
[2024-07-19 23:32] VITALS: BP 132/98
[2024-07-20 00:19] VITALS: BP 121/80
[2024-07-20 00:20] VITALS: BMI 33.7
--- NOTE | 2024-07-20 00:39 | ED.GENMED ---
History of Present Illness
General
Chief Complaint: Fall
Source: patient
Exam Limitations: none
Time Seen by Provider: 07/20/24 00:38
Nursing documentation reviewed up to this point in time: agreed with
History of Present Illness
History of Present Illness:
This is a 43-year-old female with a past medical history of asthma, hyperlipidemia, anxiety, depression who presents to ED emergency department today with concerns of right wrist pain and tailbone pain following a fall. Patient reports that she
started roller skating for the first time in 20 years this past weekend and reports that when she was rollerblading, she fell repeatedly, around 7 times. Patient reports that she fell twice on her right side and currently complains of pain in her
right forearm and wrist as well as in her low back and buttocks area. She states that when she fell, she did not hit her head and was doing home at the time. She denies any loss of consciousness, lightheadedness, dizziness, neck pain. She denies
any other injuries. She is able to walk without any difficulties. She denies any pain in her lower extremities. She denies any genital paresthesias, urinary or fecal incontinence, fevers or chills.
Past History
Past History
ED Past Medical History: Asthma, Hypercholesterolemia and Psychiatric (Anxiety/depression)
ED Past Surgical History: None
Social History
Tobacco: Smoker
Alcohol: Daily
Drug: None
Personal: Single
Living: homeless
Review of Systems
Review of Systems
All Other Systems: ROS reviewed and negative except as documented in HPI and ROS
Phy Exam
Physical Exam
Physical Exam:
General: Patient is well appearing and in no acute distress; non-toxic
Skin: Warm and dry, no rashes or lesions
Head: Normocephalic, atraumatic
Eyes: Sclera non-icteric. EOMs intact.
Cardiac: Regular rate and rhythm, no murmurs
Peripheral Vascular: No lower extremity swelling or edema. Brisk capillary refill. 2+ radial and ulnar pulse.
Pulm: Normal respiratory effort
Musculoskeletal: Full range of motion of bilateral upper and lower extremities. 5 out of 5 strength in right upper extremity. No bony tenderness to palpation.
Neuro: CN II-XII intact, no focal neurologic deficits.
Psychiatric: Appropriate mood and affect.
Course
Orders/Labs/Results
Orders:
Orders
07/20/24 00:47
CR Forearm - Right 2 View Urgent
Comment:
Reason For Exam: pain
CR Sacrum/coccyx Min 2 View Urgent
Comment:
Reason For Exam: tailbone pain
CR Wrist - Right Min 3 Views Urgent
Comment:
Reason For Exam: right wrist pain
07/20/24 00:50
Ibuprofen [Motrin] 600 mg PO NOW STA
07/20/24 03:31
[place] Wrist Right-Tx ONCE
Vital Signs
Initial and Last Documented VS:
Initial Vital Signs
Temp Pulse Resp BP Pulse Ox
98.8 F 117 20 132/98 96
07/19/24 23:32 07/19/24 23:32 07/19/24 23:32 07/19/24 23:32 07/19/24 23:32
Last Documented Vital Signs
Temp Pulse Resp BP Pulse Ox
98.8 F 117 20 121/84 97
07/19/24 23:32 07/19/24 23:32 07/19/24 23:32 07/20/24 01:00 07/20/24 01:30
MDM/Problems Addressed
Differential Diagnosis Includes:
Differentials include wrist fracture, distal radius fracture, ulnar fracture, wrist sprain, coccygeal fracture
MDM/Problems Addressed:
43-year-old female presents with right wrist pain and low back pain following a fall. She was rollerskating this past weekend and she states that when she was doing this, she fell multiple times and states that she feels sore. Her symptoms do
resolve with ibuprofen. 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 On physical exam she is well-appearing no acute distress she is forage motion
of bilateral upper extremities. She has no signs of head trauma. She had x-ray done of her right wrist that shows no evidence of acute fracture or dislocation. Suspect wrist sprain. Will place in universal splint and have her follow-up with her
primary care provider. Patient does complain of low back pain however there is no midline spinal tenderness, sacrum and coccygeal fracture unremarkable. No signs concerning for cauda equina syndrome. Patient stable for discharge.
Chronic conditions affecting care:
Anxiety, depression
*Pulse Oximetry
Patient hypoxic: no
*Critical Care Note
Total Time (30-74mins, 75-104mins- exclusive of procedures): Not Applicable
Data Reviewed
Review of Other/Old Records Reveals: Records (Reviewed discharge summary from 08/22/2023, patient seen for hematemesis for Norma-Eckert tear,)
Source: patient and records
ED Attending Note
-
Portions of this chart may have been created with voice recognition software.� Occasional wrong word or��sound alike� substitutions may have occurred due to the inherent limitations of voice recognition software.
Discharge Plan
Departure
Patient Disposition: Home (Routine Discharge)
Date of Disposition: 07/20/24
Time of Disposition: 03:34
Patient with high blood pressure during this ER visit?: Yes
Condition: Good
Discharge Problem:
Contusion of right wrist, Back pain
Instructions: Wrist Sprain ED, Back Pain, BLOOD PRESSURE
Prescriptions:
No Action
fluticasone propion-salmeterol [Advair Diskus] 250-50 mcg/dose Blister With Device
1 inh INHALATION DAILY
atorvastatin 10 mg Tablet
10 mg PO QPM
albuterol sulfate 90 mcg/actuation Hfa Aerosol Inhaler
1 puff INHALATION PRN PRN (Reason: sob)
bupropion HCl 300 mg Tablet Extended Release 24 Hr
300 mg PO DAILY
Trintellix 20 mg Tablet
20 mg PO DAILY
quetiapine
1 tab PO DAILY
Patient Comments:
pt does not know mg
ipratropium-albuterol 0.5 mg-3 mg(2.5 mg base)/3 mL Solution For Nebulization
3 ml INHALATION Q4H PRN (Reason: sob)
oxycodone 5 mg Tablet
5 mg PO Q8HPRN PRN (Reason: mod sev pain) Qty: 14 0RF
acetaminophen [Tylenol Extra Strength] 500 mg tablet
1,000 mg PO TID Qty: 60 0RF
pantoprazole 40 mg tablet,delayed release (DR/EC)
40 mg PO BID Qty: 60 1RF
fluconazole [Diflucan] 200 mg tablet
400 mg PO DAILY 9 Days Qty: 18 0RF
amoxicillin-pot clavulanate 875-125 mg tablet
1 tab PO BID 9 Days Qty: 18 0RF
Referrals:
Jennifer Mccloud MD [Family Provider] -
Stand Alone Forms: Return to Work
Activity Restrictions/Additional Instructions:
Your x-rays showed no evidence of fracture or dislocation. You can continue to take ibuprofen as needed. You can wear your wrist splint for the next few days for support. Please return to emergency department for any concerns. Please follow-up
with your PCP.
Interventions
Interventions:
*Risk Screen - Suicide Last Done: 07/19/24 23:32
*General Assessment Last Done: 07/20/24 00:20
*Neglect/Abuse Screening Last Done: 07/20/24 00:20
*ED- Fall Risk Assessment Last Done: 07/20/24 00:20
*ED COVID-19 Vaccine History Last Done: 07/20/24 00:20
*Nursing Disposition Last Done: 07/20/24 04:17
ED-Musculoskeletal Assessment Last Done: 07/20/24 00:22
ED- Neurological Assessment Last Done: 07/20/24 00:22
ED-Skin Assessment Last Done: 07/20/24 00:22
Discharge Date and Time
Discharge Date/Time: 07/20/24 04:23
Print Language: YORUBA
[2024-07-20 01:00] VITALS: BP 121/84
[2024-07-20] MEDS: MOTRIN 600 MG PO (01:01)
== END 2024-07-20 04:23 | disposition home or self-care (01) ==
LOC: EMR 23:20
PROVIDERS: EMERGENCY PHYSICIAN Emergency Medicine; FAMILY PHYSICIAN Emergency Medicine
DX: S60.211A Contusion of right wrist, initial encounter (principal); M54.50 Low back pain, unspecified; V00.121A Fall from non-in-line roller-skates, initial encounter; J45.909 Unspecified asthma, uncomplicated; E78.00 Pure hypercholesterolemia, unspecified; F17.200 Nicotine dependence, unspecified, uncomplicated
CPT/HCPCS: 99283; 72220; 73090; 73110

== ENCOUNTER 2024-11-22 00:35 | Inpatient (IN) | payer OTHER, SELFPAY ==
[2024-11-21 19:26] VITALS: BP 153/90
[2024-11-21 20:00] VITALS: BP 151/110
[2024-11-21 20:02] LABS: Hematocrit 42.4 % (37.0-47.0); Hemoglobin 14.5 g/dL (12.0-16.0); Mean Corp Hgb Conc. 34.2 g/dL (33.0-37.0); Mean Corpuscular Volume 89.1 fL (81.0-99.0); Nucleated Red Blood Cells % 0 %; Platelet Count 196 10^3/uL (130-400); Red Cell Dist. Width 14.4 % (11.5-14.5)
[2024-11-21 20:10] LABS: ALT (SGPT) 77 U/L (0-35); AST (SGOT) 56 U/L (14-36); Albumin 4.7 g/dl (3.5-5.0); Alkaline Phosphatase 58 U/L (38-126); Blood Urea Nitrogen 13 mg/dl (7-17); Calcium 9.7 mg/dl (8.4-10.2); Carbon Dioxide 19 mmol/L (22-30); Chloride 105 mmol/L (98-107); Estimated Creatinine Clearance 113 ml/min; Glucose 122 mg/dl (70-99); Potassium 4.1 mmol/L (3.5-5.1); Sodium 134 mmol/L (135-145); Total Protein 7.6 g/dl (6.3-8.2); eGFR > 60.00
[2024-11-21 20:23] LABS: INR 0.98; PT 13.3 Sec (11.4-14.6)
[2024-11-21 20:31] LABS: APTT 20.9 Sec (23.4-35.0)
[2024-11-21 20:50] VITALS: BMI 34.8
--- NOTE | 2024-11-21 20:57 | ED.GENMED ---
History of Present Illness
General
Chief Complaint: Rectal Bleeding
Source: patient
Exam Limitations: none
Time Seen by Provider: 11/21/24 20:56
Nursing documentation reviewed up to this point in time: agreed with
History of Present Illness
History of Present Illness:
Note:
CHIEF COMPLAINT(S)
Vomiting blood and melena (black stool) for the past two hours.
HISTORY OF PRESENT ILLNESS
The patient is a 44-year-old female with a significant past medical history of a perforated esophagus one year ago. She presents with complaints of vomiting blood and black tarry stools, which began about two hours prior to the visit. The patient
reports an onset of dizziness and weakness starting on Wednesday, followed by vomiting and melena today. The patient described the emesis as containing blood and clots. She is concerned that these symptoms resemble her prior esophageal issue.
The patient mentions a lack of medical insurance has impacted her access to medication, potentially contributing to her current symptoms. She describes discomfort even without food intake, exacerbated by specific movements such as turning. She notes
that she had been on medication for her esophagus but has discontinued it since losing her insurance.
The patient also reports associated symptoms of feeling faint, sweaty, and overheated. Despite these symptoms, she does not currently report active nausea as antiemetics, specifically ondansetron (Zofran), have been administered.
PAST MEDICAL AND SURIGICAL HISTORY
History of perforated esophagus one year ago.
SOCIAL DETERMINANTS AFFECTING HEALTH
The patient reports losing medical insurance, which has impacted her ability to continue necessary medication for her gastrointestinal condition.
PHYSICAL EXAM
General: Alert, no acute distress.
Skin: Warm, dry.
Head: Normocephalic, atraumatic.
Neck: Supple, trachea midline.
Eye Ears, nose, mouth and throat: Oral mucosa moist.
Cardiovascular: Normal peripheral perfusion, No edema.
Respiratory: Respirations are non-labored.
Gastrointestinal : Abdomen nondistended. rectal exam guaiac negative
Back: Normal range of motion, Normal alignment.
Musculoskeletal: Normal ROM, normal strength.
Neurological: Alert and oriented to person, place, time, and situation, No focal neurological deficit observed.
Psychiatric: Cooperative, appropriate mood & affect.
PLAN
Administered antiemetic (ondansetron).
Planned to conduct X-ray imaging.
Discuss potential hospital admission for further evaluation and management.
Plan to re-evaluate blood work and provide intravenous fluids as supportive care.
DIFFERENTIAL DIAGNOSIS
The Differential Diagnosis includes, in no particular order and is not limited to:
1. Gastrointestinal bleeding
2. Recurrent esophageal perforation
3. Peptic ulcer disease
4. Esophageal varices
5. Norma-Eckert tear
6. Gastritis
7. Duodenal ulcer
8. Esophagitis
9. Blood dyscrasias
10. Upper gastrointestinal tract malignancy.
CARE-UPDATE
11/21/24 - 23:49
Patient exhibits mild tachycardia but no signs of obstruction on the abdominal series. IV Protonix administered. Plan to admit for further evaluation to determine cause of hematemesis.
Disposition:
SUMMARY OF ENCOUNTER
The patient, a 44-year-old female, presented to the emergency department with symptoms of vomiting blood and melena that started two hours prior. This patient has a history of a perforated esophagus one year ago. Her current condition is evaluated
as a possible upper gastrointestinal bleed or hematemesis. Initial management in the emergency department involved administration of intravenous fluids and medications to stabilize her condition. The patients symptoms suggested a significant
gastrointestinal issue requiring further evaluation.
DISPOSITION
Admit to hospital for further evaluation and possible endoscopy.
ASSESSMENT
The patient is suspected to have an upper gastrointestinal bleed, potentially related to her prior esophageal perforation. Hematemesis and melena are considered serious symptoms that warrant inpatient management and further diagnostic workup,
including potential endoscopy.
EMERGENCY TREATMENTS ADMINISTERED
Intravenous fluid and a proton pump inhibitor were administered to stabilize the gastrointestinal condition.
PLAN
The patient will be admitted to the hospital for further evaluation, including the possibility of an endoscopic procedure to identify and treat the source of the bleeding. Monitoring of her hemoglobin levels is planned to assess for ongoing blood
loss.
MEDICATION RECONCILIATION
1. Omeprazole intravenous administration for gastrointestinal bleeding stabilization.
2. Pain management medications were administered, specifically an intravenous dose, possibly referring to ibuprofen or a similar medication for comfort, stated as 'ibupinic' and 'ibuporchin' (uncertain medication names).
MEDICAL DECISION MAKING
- Number and Complexity of Problems Addressed: Chronic conditions affecting care, such as the patient�s prior history of a perforated esophagus, are significant in relation to the suspected upper gastrointestinal bleed.
- Complexity of Data Reviewed:
1. Tests and documents: The decision to admit the patient and potential endoscopy indicate a need for comprehensive evaluation.
2. Discussion of management with hospitalists and other care providers regarding the need for admission and possible interventions such as endoscopy.
DIAGNOSIS
1. Hematemesis, ICD-10-CM K92.0
2. Melena, ICD-10-CM K92.1
3. Possible Upper Gastrointestinal Bleed, unspecified, ICD-10-CM K92.2
The patient�s admission is essential to address potential bleeding and prevent further complications. The lack of insurance previously impacted medication adherence, potentially contributing to the current condition. Further evaluation including
endoscopic assessment will clarify the diagnosis and guide treatment strategies.
Past History
Past History
ED Past Medical History: Asthma, Hypercholesterolemia and Psychiatric (Anxiety/depression)
ED Past Surgical History: None
Social History
Tobacco: Smoker
Alcohol: Daily
Drug: None
Personal: Single
Living: homeless
Phy Exam
Physical Exam
Physical Exam:
.
Course
Orders/Labs/Results
Orders:
Orders
11/21/24 19:36
Electrocardiogram (*1) Urgent
Reason for Study: Tachycardia
Cardiac Monitoring- Treatment ONCE
IV Insert/Care/Rem.- Treatment PRN
O2 Therapy [RESP] Urgent
Titrate/Wean O2 to maintain O2 sat greater than (%): 93
Special Instructions: MAINTAIN CONTINOUS O2 SATS > OR = 93%
Pulse Ox/spot Check [RESP] Urgent
Quantity: 1
Special Instructions: ON ROOM AIR
11/21/24 19:37
EKG- Treatment ONCE
11/21/24 19:40
Type+Screen Urgent
Complete Blood Count/With Diff Urgent
Comprehensive Metabolic Panel Urgent
PTT Urgent
Prothrombin Time Urgent
11/21/24 19:54
Crisis Consult Urgent
Reason for Consult: Depression, SI
11/21/24 20:57
Lactated Ringers [Lr] 1,000 ml IV BOLUS
Ondansetron Injectable [Zofran] 4 mg IV NOW STA
11/21/24 22:52
Pantoprazole [Protonix IV] 40 mg IV NOW STA
Obstruct Series W/PA Chest [CR Obstruct Series W/pa Chest] Urgent
Comment:
Reason For Exam: chest pain after vomiting
11/21/24 23:25
Morphine Sulfate 4 mg IV NOW STA
Abnormal Lab Results
11/21/24
19:40
MPV 11.1 H fL
(7.4-10.4)
Absolute Lymphs (auto) 0.7 L 10^3/uL
(1.2-3.4)
Neutrophils % 81.4 H %
(42.2-75.2)
Lymphocytes % 9.6 L %
(20.5-51.1)
APTT 20.9 L Sec
(23.4-35.0)
Sodium 134 L mmol/L
(135-145)
Carbon Dioxide 19 L mmol/L
(22-30)
Glucose 122 H mg/dl
(70-99)
AST 56 H U/L
(14-36)
ALT 77 H U/L
(0-35)
11/21/24 19:40
11/21/24 19:40
Vital Signs
Initial and Last Documented VS:
Initial Vital Signs
Temp Pulse Resp BP Pulse Ox
98.5 F 121 16 153/90 98
11/21/24 19:26 11/21/24 19:26 11/21/24 19:26 11/21/24 19:26 11/21/24 19:26
Last Documented Vital Signs
Temp Pulse Resp BP Pulse Ox
98.5 F 116 29 152/102 98
11/21/24 19:26 11/21/24 22:45 11/21/24 22:45 11/21/24 22:00 11/21/24 22:45
*Pulse Oximetry
SaO2: 97
Oxygen Mode of Delivery: Room air
Patient hypoxic: no
*Critical Care Note
Total Time (30-74mins, 75-104mins- exclusive of procedures): Not Applicable
ED Attending Note
-
Portions of this chart may have been created with voice recognition software.� Occasional wrong word or��sound alike� substitutions may have occurred due to the inherent limitations of voice recognition software.
Discharge Plan
Departure
Patient Disposition: Admit
Date of Disposition: 11/21/24
Time of Disposition: 23:36
Admit to: Telemetry
Presentation/result/management discussed w/ accepting MD/DO: Hospitalist
Patient with high blood pressure during this ER visit?: Yes
Condition: Good
Discharge Problem:
Acute upper gastrointestinal hemorrhage
Prescriptions:
No Action
atorvastatin 10 mg Tablet
10 mg PO QPM
Trintellix 20 mg Tablet
20 mg PO DAILY
Theragen Tablet
1 tab PO DAILY
quetiapine [Seroquel] 100 mg Tablet
100 mg PO HS
ferrous sulfate 325 mg (65 mg iron) Tablet
325 mg PO DAILY
naproxen sodium [Aleve] 220 mg Tablet
440 mg PO BIDPRN PRN (Reason: mild pain)
calcium carbonate [Tums] 200 mg calcium (500 mg) Tablet,Chewable
200 mg PO BIDPRN PRN (Reason: gerd)
bupropion HCl 450 mg Tablet Extended Release 24 Hr
450 mg PO DAILY
pantoprazole 40 mg tablet,delayed release (DR/EC)
40 mg PO DAILY
Referrals:
Jennifer Mccloud MD [Family Provider, Internal Medicine]
Interventions
Interventions:
*Risk Screen - Suicide Last Done: 11/21/24 19:29
*General Assessment Last Done: 11/21/24 19:29
*Neglect/Abuse Screening Last Done: 11/21/24 19:29
*ED- Fall Risk Assessment Last Done: 11/21/24 19:29
*ED COVID-19 Vaccine History Last Done: 11/21/24 19:29
LP-Wrnzgs-Zgniafusuh Assessment Last Done: 11/21/24 20:48
ED- Cardiac Assessment Last Done: 11/21/24 20:48
ED- Pulmonary Assessment Last Done: 11/21/24 20:48
Discharge Date and Time
Print Language: MONTSERRATIAN
[2024-11-21 21:00] VITALS: BP 143/108
[2024-11-21] MEDS: ZOFRAN 4 MG IV (21:04)
[2024-11-21] MEDS: LR 1000 IV (21:04)
[2024-11-21 22:00] VITALS: BP 152/102
[2024-11-21 23:04] VITALS: BP 146/102
[2024-11-21] MEDS: MORPHINE SULFATE 4 MG IV (23:28)
[2024-11-21] MEDS: PROTONIX IV 40 MG IV (23:28)
--- NOTE | 2024-11-21 23:48 | HPS.HSE ---
Family Physician
-
Family Physician: Jennifer Mccloud MD
Chief Complaint
-
Hematemesis
History of Present Illness
This is a 44-year-old female who has a history of major depression, anxiety, history of alcohol abuse, hyperlipidemia and history of Norma-Eckert tear a year ago presenting to the emergency department with abdominal symptoms including hematemesis.
Patient reported that's she has been having headaches since Wednesday. She has been taking naproxen up to 4 times a day and she stated that she took 8 pills in the last 48 hours. She reports that she drinks 1 glass of vodka mix and night and last
drink was 72 hours ago. She reported that since Wednesday she has been having pain with swallowing. She reports that the pain is midsternal when she swallows food or liquids. This lasts for a few minutes and then dissipates. She reported that over
the last 24 hours she has vomited about 2-3 times and it appears to be coffee grounds. She also noticed that the acne no full stool. She denies pain in the abdomen. She denies nausea. Due to the darkening of the stool she decided come to the
emergency department. She has otherwise not had any melena or hematochezia. She reports that she has not been taking her Protonix due to loss of insurance.
In the emergency department she was actually afebrile, hemodynamically stable with a blood pressure of 150/100 and a pulse rate of 116 she was satting 98% on room air. ECG showed sinus tachycardia at a rate of 113. Hemoglobin is 14.5 with normal
platelets and INR. Electrolytes were in the normal range BUN/creatinine were normal. AST was 56 and ALT was 77. X-ray of the chest shows no acute infiltrate. There is no widening of the mediastinum.
Medical History
Past Medical History
Past Medical History: Reports Other
Additional Past Medical History:
Asthma, Hypercholesterolemia and Psychiatric (Anxiety/depression),
ETOH use disorder
Norma-Eckert
Past Surgical History: Reports None
Social History
Tobacco: Smoker
Alcohol: Daily (2 bottle of twister daily ( Ice tea with ETOH ) )
Drug: None
Living: Other
Family History
Family History: Not pertinent
Allergies / Home Medications
Allergies reflects when Allergies were last updated in [facility].
Home Medications with original date entered in [employer]
Allergy/Medication List:
Allergies
Allergy/AdvReac Type Severity Reaction Status Date / Time
No Known Allergies Allergy Verified 07/19/24 23:30
Home Medications
atorvastatin 10 mg tablet 10 mg PO QPM High Cholesterol 08/14/23
vortioxetine 20 mg tablet (Trintellix) 20 mg PO DAILY Mental Health/Anxiety 08/14/23
bupropion HCl 450 mg 24 hr tablet, extended release 450 mg PO DAILY 11/21/24
calcium carbonate (Tums) 200 mg PO BIDPRN PRN gerd 11/21/24
ferrous sulfate 325 mg (65 mg iron) tablet 325 mg PO DAILY 11/21/24
naproxen sodium 220 mg tablet (Aleve) 440 mg PO BIDPRN PRN mild pain 11/21/24
pantoprazole 40 mg tablet,delayed release 40 mg PO DAILY 11/21/24
quetiapine 100 mg tablet (Seroquel) 100 mg PO HS 11/21/24
therapeutic multivitamin 1 tab PO DAILY 11/21/24
Review of Systems
-
Constitutional: Reports No Symptoms
EENT: Reports No Symptoms
Respiratory: Reports No Symptoms
Cardiac: Reports No Symptoms
Abdomen/GI: Reports No Symptoms
: Reports No Symptoms
Musculoskeletal: Reports No Symptoms
Skin: Reports No Symptoms
Neurological: Reports No Symptoms
Endocrine: Reports No Symptoms
Hematologic/Lymphatic: Reports No Symptoms
Psych: Reports No Symptoms
Physical Exam
Vital Signs
Vital Signs
Temp Pulse Resp BP Pulse Ox
98.5 F 116 29 152/102 98
11/21/24 19:26 11/21/24 22:45 11/21/24 22:45 11/21/24 22:00 11/21/24 22:45
Physical Exam
General: Well Developed, Well Nourished and No Apparent Distress
HEENT: NormoCephalic, Moist mucous membranes and Atraumatic
Respiratory: Clear
Cardiac: S1/S2 and Regular Rhythm; No Murmur or Rub
GI: Soft, Non Tender, Non Distended and Normal Bowel Sounds; No Organomegaly
Rectal: Hem Negative
Musculoskeletal: No Clubbing, No Cyanosis and No Edema
Skin: No Rash
Neuro: Nonfocal/grossly intact
Laboratory Results
-
11/21/24 19:40
11/21/24 19:40
Laboratory Results
PT 13.3 Sec (11.4-14.6) 11/21/24 19:40
INR 0.98 11/21/24 19:40
APTT 20.9 Sec (23.4-35.0) L 11/21/24 19:40
Total Bilirubin 0.4 mg/dl (0.2-1.3) 11/21/24 19:40
AST 56 U/L (14-36) H 11/21/24 19:40
ALT 77 U/L (0-35) H 11/21/24 19:40
Alkaline Phosphatase 58 U/L (38-126) 11/21/24 19:40
Data Reviewed
-
Diagnostic Radiology: Image Personally Visualized and interpreted
Lab Data: Labs Reviewed by me
Impression/Plan
-
IMPRESSION:
44-year-old with past medical history of alcohol dependence, Norma-Eckert tear, depression and anxiety who presents to the emergency department with 1 day history of hematemesis and complaints of dark stool. She had also 2 to 3 days of
dysphagia/odynophagia with pain localized to the midsternal region after swallowing food and drinks. She denies any sensation of food getting stuck and she had no regurgitation. She does induce vomiting with brushing her cell. However today she
had spontaneous vomited that she feels with coffee-ground. She has not vomited in the ED. Stool was heme-negative in the emergency department. Hemoglobin is 14.5. She is hemodynamically stable. Patient has been taking Aleve of 4 tablets a day
for the last 24 hours. Her last drink was 72 hours ago. She endorses 1 drink of alcohol in the evenings.
PLAN:
Hematemesis -suspect acute gastritis possibly secondary to alcohol or NSAIDs, patient has not been able to be compliant with her PPI as well. I suspect she may be having some reflux as well with the odynophagia. No bright red hematemesis or
redness in the vomitus. No clots. X-ray shows no widening of the mediastinum. No chest pain with palpation
- Admit to MedSurg for now, likely Norma-Eckert tear
- PPI IV 80 mg now and then IV twice daily
- Trend H&H
- Check orthostatics
- Hold any NSAIDs for now
- Check lipase
- Pain control and antiemetics
Alcohol dependence-reports only drinking 1 glass in the evenings with the last drink about 72 hours ago. No known history of withdrawal denies any history of seizures
- Low-risk msas protocol for now
- crises consulted in ED
Depression and anxiety
-Continue Trintellix and bupropion
- Continue her Seroquel
DVT PPX - SCD
Code status - Full code
[2024-11-22] VITALS (9 sets, daily range): BP systolic 127–168; BP diastolic 74–104; PULSE 78–93; BMI 34.0
[2024-11-22 00:43] LABS: Lipase 164 U/L (23-300)
--- NOTE | 2024-11-22 00:45 | PTCARENOTE ---
Patient arrived from ED via stretcher. Patient aaox3 able to make needs known. IV flushed and patent. Patient walked from stretcher to bed.
[2024-11-22] MEDS: LR 1000 IV (01:00)
[2024-11-22] MEDS: TYLENOL 650 MG PO ×2 (01:13→17:13)
--- NOTE | 2024-11-22 02:25 | DOWNTIME ---
There was a [employer] Downtime on 11/22/2024 from 0100 to 11/22/2024 at 0215. Downtime documentation of patient's care, including medication administrations, has been reconciled in the electronic record per guidelines. Refer to the
patient's paper chart under the miscellaneous tab to see printed paper medication records and downtime forms.
[2024-11-22] MEDS: MORPHINE SULFATE 4 MG IV (04:35)
--- NOTE | 2024-11-22 06:47 | CON.GI ---
Addendum entered and electronically signed by Nikolay Hernandez MD 11/22/24 15:40:
I saw and examined the patient.
The [employer]ING [employer]TER HELPER or PA's note was reviewed and I agree with the note.
Comment: 44yo female presents with n/v and dark stools. She has hx hematemesis in August [address] showed esophageal thickening and suspicion for minimal amount of pneumomediastinum. Under consultation conversation with CT surgery at [place], pt was
monitored, esophagram in f/u were negative for leak. Pt was managed with abx and eventually d/c'd without need for surgery. She had f/u EGD as outpt showing ringed esophagus. Bx were borderline with 16 Eos/hpf at [facility] and 6 Eos/hpf from random
esophagus. She has had no dysphagia until the last several days with vomiting. Heme negative in ER. She reports feeling discomfort with drinking khanh carline. She has been taking NSAIDs over the weekend. She has not been on PPI due to insurance
REC:
EGD tomorrow to evaluate
Possible pill esophagitis or reflux
PPI
Trend Hgb
Original Note:
Consultation
-
Date/Time Consultation Requested: 11/22/247
Date/Time Consultation Performed: 11/22/2415
Requesting Provider: Moses Ocampo MD
Performing Provider: ALMA Ya, Nikolay Hernandez MD
Reason for Consultation: GI bleed
Medical History
Chief Complaint / HPI
Chief Complaint: hematemesis and rectal bleeding
History of Present Illness:
Pt is a 44yo with hx perforated esophagus in 2023 , asthma, hyperlipidemia, ETOH abuse, fatty liver, anxiety and major depression presents to ER with vomiting blood and dark tarry stools. In review of records patient was admitted in 2023 with
hematemesis and right sided chest pain with hx chronic dysphagia and concern for food impaction. At that time pt was noted with hematemesis and melena and CT was noted with concern for circumferential wall thickening in mid to distal esophagus
suggesting intramural edema right posterior lateral distal esophagus as well as small amount of paraesophageal complex fluid or hemorrhage c/w possible MW tear with possible new pneumomediastinum with possible esophageal perforation. Pt was noted
with leukocytosis, given IV abx, ID evaluation and placed on PPI gtt. She had esophagram with normal results. She completed liver work up with elevated smooth muscle ab titer 1:40 but otherwise neg work up. Fibroscan was F0. She completed follow
up EGD with Dr. Bledsoe with concern for EOE, small HH, no lesions on stomach and continued PPI daily with NSAID avoidance. bx suggested more reflux and neg H pylori. On admission pt with hbg 14.5, WBC 7.6, platelets 196, Na 134, K 4.1, glucose
122, AST 56, ALT 77, alk phos 58, lipase 164 and INR 0.98. In ER noted with heme neg rectal exam.
In review with patient she states since last years she did have some improvement. She admits to increased stress with loss of job and insurance then headache over the weekend with increased NSAID use. She then began with feeling of food and
liquids sticking in lower esophagus and vomiting dark emesis. She states she continues with some difficulty with eating but was able to tolerate some applesauce today without recurrent vomiting. She otherwise admits to dark stool but denies
odynophagia, GERD, abdominal pain, diarrhea, constipation or red stools. NO hx colonoscopy in past. + daily ETOH use - 1 twisted tea daily and recent marijuana use for anxiety with hold of psych med with loss of insurance coverage.
Past Medical History
Past Medical History: Asthma, Hypercholesterolemia, Psychiatric (Anxiety, depression) and Other (Intermittent dysphagia, concern for esophageal perforation, MW tear 2023, fatty liver )
Past Surgical History: None (Sinus surgery, bilateral carpal tunnel)
Social History
Tobacco: Smoker
Alcohol: Daily (1 large twisted tea daily)
Drug: Former User (Former cocaine user, quit 3 years ago) and Marijuana (Occasional marijuana)
Personal: Single
Living: With Roomate
Employment: Not Employed (recently lost job)
Family History
Family History: Other (mother with hx IBS, hernia surgery no family hx colon Ca or polyps)
Allergies / Home Medications
Allergy/AdvReac Type Severity Reaction Status Date / Time
No Known Allergies Allergy Verified 07/19/24 23:30
�Medication �Instructions �Recorded
atorvastatin 10 mg tablet 10 mg PO QPM High Cholesterol 08/14/23
vortioxetine 20 mg tablet 20 mg PO DAILY Mental 08/14/23
(Trintellix) Health/Anxiety
bupropion HCl 450 mg 24 hr tablet, 450 mg PO DAILY 11/21/24
extended release
calcium carbonate (Tums) 200 mg PO BIDPRN PRN gerd 11/21/24
ferrous sulfate 325 mg (65 mg 325 mg PO DAILY 11/21/24
iron) tablet
naproxen sodium 220 mg tablet 440 mg PO BIDPRN PRN mild pain 11/21/24
(Aleve)
pantoprazole 40 mg tablet,delayed 40 mg PO DAILY 11/21/24
release
quetiapine 100 mg tablet (Seroquel) 100 mg PO HS 11/21/24
therapeutic multivitamin 1 tab PO DAILY 11/21/24
Review of Systems
-
History Source: Patient
Constitutional: Reports No Symptoms
EENT: Reports No Symptoms
Respiratory: Reports No Symptoms
Cardiac: Reports No Symptoms
Abdomen/GI: Reports Nausea, Vomiting, Black Stools (dark stools ) and Other (dysphagia )
: Reports No Symptoms
Musculoskeletal: Reports No Symptoms
Skin: Reports No Symptoms
Neurological: Reports Headache
Endocrine: Reports No Symptoms
Hematologic/Lymphatic: Reports Bleeding
Vital Signs
Temp Pulse Resp BP Pulse Ox
98.2 F 92 20 146/92 97
11/22/24 01:00 11/22/24 01:00 11/22/24 01:00 11/22/24 02:05 11/22/24 01:00
Physical Exam
Exam
General: Well Developed, Well Nourished and No Apparent Distress
HEENT: Normocephalic and Anicteric
Respiratory: Clear
Cardiac: Regular Rhythm
GI: Soft, Non Tender and Non Distended
Rectal: Other (heme neg in ER)
Musculoskeletal: No Clubbing and No Cyanosis
Skin: Warm and Dry
Neuro: Awake, Alert and AO x 3
Psych: Calm
Results
WBC 7.6 10^3/uL (4.8-10.8) 11/21/24 19:40
Hgb 14.5 g/dL (12.0-16.0) 11/21/24 19:40
Hct 42.4 % (37.0-47.0) 11/21/24 19:40
MCV 89.1 fL (81.0-99.0) 11/21/24 19:40
Plt Count 196 10^3/uL (130-400) 11/21/24 19:40
Absolute Neuts (auto) 6.2 10^3/uL (1.4-6.5) 11/21/24 19:40
PT 13.3 Sec (11.4-14.6) 11/21/24 19:40
INR 0.98 11/21/24 19:40
APTT 20.9 Sec (23.4-35.0) L 11/21/24 19:40
Sodium 134 mmol/L (135-145) L 11/21/24 19:40
Potassium 4.1 mmol/L (3.5-5.1) 11/21/24 19:40
Chloride 105 mmol/L (98-107) 11/21/24 19:40
Carbon Dioxide 19 mmol/L (22-30) L 11/21/24 19:40
BUN 13 mg/dl (7-17) 11/21/24 19:40
Creatinine 0.7 mg/dL (0.6-1.0) 11/21/24 19:40
Calcium 9.7 mg/dl (8.4-10.2) 11/21/24 19:40
Total Bilirubin 0.4 mg/dl (0.2-1.3) 11/21/24 19:40
AST 56 U/L (14-36) H 11/21/24 19:40
ALT 77 U/L (0-35) H 11/21/24 19:40
Alkaline Phosphatase 58 U/L (38-126) 11/21/24 19:40
Lipase 164 U/L (23-300) 11/21/24 19:40
Diagnostic Image Results:
11/21/24- Chest/abd X ray -pending
11/2023- fibroscan F0
08/17/24 CT Chest With Iv Contrast
1).There is a linear bandlike area of parenchymal airspace disease in the right lower lobe, new compared with the prior study consistent with subsegmental atelectasis. There is less prominent similar linear interstitial density at the posterior
medial left lung base consistent with subsegmental atelectasis.
2). Small hiatal hernia present on the previous examination has been reduced.
There is no evidence of esophageal wall thickening or pneumomediastinum
3). There is diffuse fatty infiltration of the liver
08/15/24 CT Chest With Iv Contrast
1).There is a linear bandlike area of parenchymal airspace disease in the right lower lobe, new compared with the prior study consistent with subsegmental atelectasis. There is less prominent similar linear interstitial density at the posterior
medial left lung base consistent with subsegmental atelectasis.
2). Small hiatal hernia present on the previous examination has been reduced.
There is no evidence of esophageal wall thickening or pneumomediastinum
3). There is diffuse fatty infiltration of the liver
08/15/24 esophagram normal
08/13/24 esophagram normal
08/13/23 CT Chest/abd/pel W Iv Cont
CHEST:
1. Mild circumferential wall thickening throughout the mid and distal esophagus with suggestion of intramural edema in the right posterolateral distal esophageal wall and a small amount of paraesophageal complex fluid or hemorrhage. The findings
in conjunction with the patient history are most suggestive of an ACUTE GLADYS-ROBLERO TEAR.
2. Small hiatal hernia.
3. Possible minimal pneumomediastinum.
ABDOMEN and PELVIS:
1. SEVERE DIFFUSE HEPATIC STEATOSIS and mild hepatomegaly.
2. No CT evidence for ascites or pneumoperitoneum.
3. Small bilateral nonobstructing intrarenal calculi.
4. IUD in the uterus.
Prior GI Procedures:
EGD: 11/2023 jose juan - Esophageal mucosal changes suspicious for
eosinophilic esophagitis. Biopsied.
- Z-line variable, 36 cm from the incisors. Biopsied.
- Small hiatal hernia.
- No gross lesions in the entire stomach. Biopsied.
- Normal.
bx H pylori suggest reflux esophagitis
Colonoscopy: none
Assessment / Plan
-
Pt is a 44yo with hx perforated esophagus in 2023 , asthma, hyperlipidemia, ETOH abuse, fatty liver, anxiety and depression presents to ER with vomiting blood and dark tarry stools. In review of records patient was admitted in 2023 with
hematemesis and right sided chest pain with hx chronic dysphagia and concern for food impaction. At that time pt was noted with hematemesis and melena. CT on admission with concern for circumferential wall thickening in mid to distal esophagus
suggesting intramural edema right posterior lateral distal esophagus as well as small amount of paraesophageal complex fluid or hemorrhage c/w possible MW tear with possible new pneumomediastinum with possible esophageal perforation. Pt was noted
with leukocytosis, given IV abx, ID evaluation and placed on PPI gtt. She had esophagram with normal results. She completed liver work up with elevated smooth muscle ab titer 1:40 but otherwise neg work up. Fibroscan was F0. She completed follow
up EGD with Dr. Bledsoe with concern for EOE, small HH, no lesions on stomach and continued PPI daily with NSAID avoidance. bx suggested more reflux and neg H pylori. In review with patient she states since last years she did have some
improvement. She admits to increased stress with loss of job and insurance then headache over the weekend with increased NSAID use. She then began with feeling of food and liquids sticking in lower esophagus and vomiting dark emesis. She states
she continues with some difficulty with eating but was able to tolerate some applesauce today without recurrent vomiting. + daily ETOH use - 1 twisted tea daily and recent marijuana use for anxiety with hold of psych med with loss of insurance
coverage.
-hematemesis
-dysphagia with liquids and solids
-dark stool with heme neg stool in ER
-recent NSAID use
-hx MW tear with possible esophageal perforation 2023
-increased LFT's with hx fatty liver
-daily ETOH use
other med problems:
-asthma
-hyperlipidemia
-tobacco abuse
-anxiety/depression
PLAN:
Etiology of dark emesis related to gastritis, esophagitis, PUD with recent increased NSAID use vs other
plan for EGD in AM as pt did just eat some applesauce today
ok for clears then advance today as tolerated
trend hbg
cont PPI BID
discussed ETOH , tobacco, and Marijuana abstinence
NSAID avoidance
noted AST/ALT with chronic elevation with fatty liver/daily ETOH use -- prior liver work up with elevated SMA ab titer with stable fibroscan
OP follow up to discuss colonoscopy
pt states she did get assistance with insurance issues and now reactivated
-
-
Thank you for consultation and allowing me to participate in the patient's care. Please call the instrumentation tech GI physician during the after hours with any questions or concerns.
--- NOTE | 2024-11-22 07:28 | W.PN.HOSP.TC ---
Today's Communication/Plan
-
see a/p
Assessment / Plan
Assessment / Plan
Physical Exam
General: no acute distress, appears comfortable at this time
HEENT: NormoCephalic, Moist mucous membranes and Atraumatic
Respiratory: Clear
Cardiac: S1/S2 and Regular Rhythm; No Murmur or Rub
GI: Soft, Non Tender, Non Distended and Normal Bowel Sounds; No Organomegaly
Rectal: Hem Negative
Musculoskeletal: No Clubbing, No Cyanosis and No Edema
Skin: No Rash
Neuro: AOx3 conversant coherent
44-year-old with past medical history of alcohol dependence, Norma-Eckert tear, depression and anxiety who presents to the emergency department with 1 day history of hematemesis and complaints of dark stool. She had also 2 to 3 days of
dysphagia/odynophagia with pain localized to the midsternal region after swallowing food and drinks. She denies any sensation of food getting stuck and she had no regurgitation. She does induce vomiting with brushing her cell. However today she
had spontaneous vomited that she feels with coffee-ground. She has not vomited in the ED. Stool was heme-negative in the emergency department. Hemoglobin is 14.5. She is hemodynamically stable. Patient has been taking Aleve of 4 tablets a day
for the last 24 hours. Her last drink was 72 hours ago. She endorses 1 drink of alcohol in the evenings.
PLAN:
Hematemesis -suspect acute gastritis possibly secondary to alcohol or NSAIDs, patient has not been able to be compliant with her PPI as well. I suspect she may be having some reflux as well with the odynophagia. No bright red hematemesis or
redness in the vomitus. No clots. X-ray shows no widening of the mediastinum. No chest pain with palpation
- possible Norma-Eckert tear
- IV PPI 40 mg BID
- Trend H&H, no significant anemia noted
- Hold any NSAIDs for now
- lipase wnl
- Pain control and antiemetics
- GI eval appreciated NPO after midnight for EGD
Alcohol dependence-reports only drinking 1 glass in the evenings with the last drink about 72 hours ago. No known history of withdrawal denies any history of seizures
- Low-risk msas protocol for now
Depression and anxiety
-Continue Trintellix and bupropion
- Continue her Seroquel
-crisis consult in ED (d/t concerns suicidal ideation) appreciated cont outpt follow up with psych
DVT PPX - SCD
Code status - Full code
I spent a total of 50 minutes with the patient or on the floor. More than 50% of this time involved counseling and coordination of care.
Anticipated Discharge: 24 - 48 hours
Subjective/Interval History
-
Date of Service: November 22, 2024
No acute distress sitting up comfortably in bed. Nausea vomiting since resolved. No bowel movements since admission. Notes dysphagia/sternal chest pain when swallowing.
Objective Data
-
Labs:
Laboratory Results
11/21/24 11/22/24 11/22/24
19:40 06:00 14:00
WBC 7.6 Pending
Hgb 14.5 Pending Pending
Hct 42.4 Pending Pending
Plt Count 196 Pending
PT 13.3
INR 0.98
APTT 20.9 L
Sodium 134 L Pending
Potassium 4.1 Pending
Chloride 105 Pending
Carbon Dioxide 19 L Pending
BUN 13 Pending
Creatinine 0.7 Pending
Glucose 122 H Pending
Calcium 9.7 Pending
Total Bilirubin 0.4
AST 56 H
ALT 77 H
Alkaline Phosphatase 58
Vital Signs:
Vital Signs
Temp Pulse Resp BP Pulse Ox
98.2 F 92 20 146/92 97
11/22/24 01:00 11/22/24 01:00 11/22/24 01:00 11/22/24 02:05 11/22/24 01:00
[2024-11-22 08:18] LABS: Hematocrit 38.9 % (37.0-47.0); Hemoglobin 13.2 g/dL (12.0-16.0); Mean Corp Hgb Conc. 33.9 g/dL (33.0-37.0); Mean Corpuscular Volume 90.3 fL (81.0-99.0); Platelet Count 184 10^3/uL (130-400); Red Cell Dist. Width 14.4 % (11.5-14.5)
[2024-11-22] MEDS: PROTONIX IV 40 MG IV ×2 (09:00→20:09)
[2024-11-22] MEDS: THERAGRAN 1 TABLET PO (09:01)
[2024-11-22] MEDS: THIAMINE INJECTION 200 MG IV ×2 (09:01→20:07)
[2024-11-22] MEDS: WELLBUTRIN XL (24 hour extended release) 450 MG PO (09:01)
[2024-11-22] MEDS: NSS (PRESERVATIVE FREE) 10 ML IV ×2 (09:01→20:09)
[2024-11-22 09:10] LABS: Blood Urea Nitrogen 9 mg/dl (7-17); Calcium 8.7 mg/dl (8.4-10.2); Carbon Dioxide 24 mmol/L (22-30); Chloride 107 mmol/L (98-107); Estimated Creatinine Clearance > 125 ml/min; Glucose 103 mg/dl (70-99); Potassium 4.1 mmol/L (3.5-5.1); Sodium 136 mmol/L (135-145); eGFR > 60.00
[2024-11-22] MEDS: ROXICODONE 5 MG PO ×3 (09:14→20:07)
[2024-11-22 14:41] LABS: Hematocrit 38.5 % (37.0-47.0); Hemoglobin 12.9 g/dL (12.0-16.0)
--- NOTE | 2024-11-22 15:48 | CM ---
Patient seen bedside, initial assessment completed. Patient is a 44-year-old female who has a history of major depression, anxiety, history of alcohol abuse, hyperlipidemia and history of Norma-Eckert tear a year ago presenting to the emergency
department with abdominal symptoms including hematemesis.
Patient resides in a 3 story townhouse w/ 2 roommates, no steps. Patient is independent in all areas. Has a neb machine that is in good condition. No therapy hx. Patient is currently seeking employment, shared that her landlord is working on the
process of evicting her. Patient stated she had a job interview today but will have to reschedule due to being in the hospital. Patient stated she is working w/ [employer], she worked w/ [employer] before, patient anticipating
they'll assist her w/ some funds.
Address, point of contact and insurance verified. Patient does not want her friend who is listed as a contact to remain and will find another person. Updated admissions
PCP: Jennifer Mccloud
[facility]armacy: [facility]
Plan: Home, no needs anticipated
[2024-11-22] MEDS: LIPITOR 10 MG PO (17:14)
[2024-11-22] MEDS: SEROQUEL 100 MG PO (21:07)
[2024-11-23] MEDS: ROXICODONE 5 MG PO ×5 (05:13→22:42)
--- NOTE | 2024-11-23 07:13 | W.PN.HOSP.TC ---
Today's Communication/Plan
-
trial regular diet
avoid NSAIDS
PPI
Carafate
possible discharge tomorrow if remains stable, tolerating diet
Assessment / Plan
Assessment / Plan
Physical Exam
General: no acute distress, appears comfortable at this time
HEENT: NormoCephalic, Moist mucous membranes and Atraumatic
Respiratory: Clear
Cardiac: S1/S2 and Regular Rhythm; No Murmur or Rub
GI: Soft, Non Tender, Non Distended and Normal Bowel Sounds; No Organomegaly
Rectal: Hem Negative
Musculoskeletal: No Clubbing, No Cyanosis and No Edema
Skin: No Rash
Neuro: AOx3 conversant coherent
44-year-old with past medical history of alcohol dependence, Norma-Eckert tear, depression and anxiety who presents to the emergency department with 1 day history of hematemesis and complaints of dark stool. She had also 2 to 3 days of
dysphagia/odynophagia with pain localized to the midsternal region after swallowing food and drinks. She denies any sensation of food getting stuck and she had no regurgitation. She does induce vomiting with brushing her cell. However today she
had spontaneous vomited that she feels with coffee-ground. She has not vomited in the ED. Stool was heme-negative in the emergency department. Hemoglobin is 14.5. She is hemodynamically stable. Patient has been taking Aleve of 4 tablets a day
for the last 24 hours. Her last drink was 72 hours ago. She endorses 1 drink of alcohol in the evenings.
PLAN:
Hematemesis -suspect acute gastritis possibly secondary to alcohol or NSAIDs, patient has not been able to be compliant with her PPI as well. I suspect she may be having some reflux as well with the odynophagia. No bright red hematemesis or
redness in the vomitus. No clots. X-ray shows no widening of the mediastinum. No chest pain with palpation
possible Norma-Eckert tear ruled out as below
IV PPI 40 mg BID
H&H trended, stable, no significant anemia noted
Avoid NSAID use at this time
lipase wnl
Pain control and antiemetics
GI eval appreciated EGD 11/23 noted:
-Grade D esophagitis mid/lower esophagus
-Multiple superficial ulcers seen
-Bx'd r/o HSV, CMV
Carafate added
trial regular diet
Alcohol dependence-reports only drinking 1 glass in the evenings with the last drink about 72 hours ago. No known history of withdrawal denies any history of seizures
- Low-risk msas protocol for now
Depression and anxiety
-Continue Trintellix and bupropion
- Continue her Seroquel
-crisis consult in ED (d/t concerns suicidal ideation) appreciated cont outpt follow up with psych
DVT PPX - SCD
Code status - Full code
I spent a total of 40 minutes with the patient or on the floor. More than 50% of this time involved counseling and coordination of care.
Anticipated Discharge: Within 24 hours
Subjective/Interval History
-
Date of Service: November 23, 2024
Seen and examined s/p EGD, no acute distress, appears comfortable, ambulatory without need for assist device. Overall reports feeling well, looking forward to eating regular diet. Denies new episodes nausea vomiting.
Objective Data
-
Labs:
Laboratory Results
11/23/24
06:00
WBC Pending
Hgb Pending
Hct Pending
Plt Count Pending
Sodium Pending
Potassium Pending
Chloride Pending
Carbon Dioxide Pending
BUN Pending
Creatinine Pending
Glucose Pending
Calcium Pending
Total Bilirubin Pending
AST Pending
ALT Pending
Alkaline Phosphatase Pending
Vital Signs:
Vital Signs
Temp Pulse Resp BP Pulse Ox
98.3 F 85 18 127/74 98
11/22/24 23:41 11/22/24 23:41 11/22/24 23:41 11/22/24 23:41 11/22/24 23:41
I&O
11/22/24 11/23/24 11/24/24
06:59 06:59 06:59
Intake Total 180 / 180
Balance 180 / 180
[2024-11-23 07:35] VITALS: BP 136/96
[2024-11-23 09:36] LABS: Hematocrit 41.5 % (37.0-47.0); Hemoglobin 14.0 g/dL (12.0-16.0); Mean Corp Hgb Conc. 33.7 g/dL (33.0-37.0); Mean Corpuscular Volume 92.0 fL (81.0-99.0); Platelet Count 214 10^3/uL (130-400); Red Cell Dist. Width 14.5 % (11.5-14.5)
--- NOTE | 2024-11-23 09:50 | W.PN.UPDATE ---
Update Note
Progress Note Update
EGD done
Grade D esophagitis mid/lower esophagus
Multiple superficial ulcers seen
Bx'd r/o HSV, CMV
REC:
Try PO diet (pt wants solids)
PPI
Add carafate
Avoid NSAIDs
[2024-11-23] MEDS: THERAGRAN 1 TABLET PO (10:32)
[2024-11-23] MEDS: THIAMINE INJECTION 200 MG IV ×2 (10:32→20:28)
[2024-11-23] MEDS: WELLBUTRIN XL (24 hour extended release) 450 MG PO (10:32)
[2024-11-23] MEDS: NSS (PRESERVATIVE FREE) 10 ML IV ×2 (10:33→20:28)
[2024-11-23] MEDS: PROTONIX IV 40 MG IV ×2 (10:33→20:28)
[2024-11-23] MEDS: CARAFATE SUSPENSION 1 GM PO ×3 (10:34→21:55)
[2024-11-23 10:39] LABS: ALT (SGPT) 86 U/L (0-35); AST (SGOT) 63 U/L (14-36); Albumin 4.5 g/dl (3.5-5.0); Alkaline Phosphatase 57 U/L (38-126); Blood Urea Nitrogen 7 mg/dl (7-17); Calcium 9.4 mg/dl (8.4-10.2); Carbon Dioxide 22 mmol/L (22-30); Chloride 108 mmol/L (98-107); Estimated Creatinine Clearance 111 ml/min; Glucose 101 mg/dl (70-99); Potassium 4.6 mmol/L (3.5-5.1); Sodium 139 mmol/L (135-145); Total Protein 7.5 g/dl (6.3-8.2); eGFR > 60.00
[2024-11-23 15:50] VITALS: BP 117/74
[2024-11-23] MEDS: LIPITOR 10 MG PO (17:07)
[2024-11-23] MEDS: TYLENOL 650 MG PO (17:12)
[2024-11-23] MEDS: MAALOX 30 ML PO (18:32)
[2024-11-23] MEDS: MORPHINE SULFATE 4 MG IV (20:39)
[2024-11-23] MEDS: SEROQUEL 100 MG PO (21:55)
[2024-11-23 23:12] VITALS: BP 123/76
[2024-11-24 06:00] VITALS: BMI 33.7
[2024-11-24] MEDS: MAALOX 30 ML PO ×2 (08:00→13:27)
[2024-11-24] MEDS: THIAMINE INJECTION 200 MG IV ×2 (08:00→21:06)
[2024-11-24] MEDS: NSS (PRESERVATIVE FREE) 10 ML IV ×2 (08:00→21:06)
[2024-11-24] MEDS: CARAFATE SUSPENSION 1 GM PO ×4 (08:00→21:17)
[2024-11-24] MEDS: WELLBUTRIN XL (24 hour extended release) 450 MG PO (08:00)
[2024-11-24] MEDS: THERAGRAN 1 TABLET PO (08:00)
[2024-11-24] MEDS: ROXICODONE 5 MG PO ×3 (08:00→18:19)
[2024-11-24] MEDS: PROTONIX IV 40 MG IV ×2 (08:01→21:06)
[2024-11-24 08:07] VITALS: BP 146/95
--- NOTE | 2024-11-24 08:34 | W.PN.HOSP.TC ---
Today's Communication/Plan
-
Low residue diet
cont Carafate
Maalox prn
possible discharge tomorrow if symptoms improve/patiet remains stable
Assessment / Plan
Assessment / Plan
Physical Exam
General: no acute distress, appears comfortable at this time
HEENT: NormoCephalic, Moist mucous membranes and Atraumatic
Respiratory: Clear
Cardiac: S1/S2 and Regular Rhythm; No Murmur or Rub
GI: Soft, Non Tender, Non Distended and Normal Bowel Sounds; No Organomegaly
Rectal: Hem Negative
Musculoskeletal: No Clubbing, No Cyanosis and No Edema
Skin: No Rash
Neuro: AOx3 conversant coherent
44-year-old with past medical history of alcohol dependence, Norma-Eckert tear, depression and anxiety who presents to the emergency department with 1 day history of hematemesis and complaints of dark stool. She had also 2 to 3 days of
dysphagia/odynophagia with pain localized to the midsternal region after swallowing food and drinks. She denies any sensation of food getting stuck and she had no regurgitation. She does induce vomiting with brushing her cell. However today she
had spontaneous vomited that she feels with coffee-ground. She has not vomited in the ED. Stool was heme-negative in the emergency department. Hemoglobin is 14.5. She is hemodynamically stable. Patient has been taking Aleve of 4 tablets a day
for the last 24 hours. Her last drink was 72 hours ago. She endorses 1 drink of alcohol in the evenings.
PLAN:
Hematemesis -suspect acute gastritis possibly secondary to alcohol or NSAIDs, patient has not been able to be compliant with her PPI as well. I suspect she may be having some reflux as well with the odynophagia. No bright red hematemesis or
redness in the vomitus. No clots. X-ray shows no widening of the mediastinum. No chest pain with palpation
possible Norma-Eckert tear ruled out as below
IV PPI 40 mg BID
H&H trended, stable, no significant anemia noted
Avoid NSAID use at this time
lipase wnl
Pain control and antiemetics
GI eval appreciated EGD 11/23 noted:
-Grade D esophagitis mid/lower esophagus
-Multiple superficial ulcers seen
-Bx'd r/o HSV, CMV
Carafate added
trial regular diet downgraded to Low residue diet given ongoing discomfort
Alcohol dependence-reports only drinking 1 glass in the evenings with the last drink about 72 hours ago. No known history of withdrawal denies any history of seizures
- Low-risk msas protocol for now
Depression and anxiety
-Continue Trintellix and bupropion
- Continue her Seroquel
-crisis consult in ED (d/t concerns suicidal ideation) appreciated cont outpt follow up with psych
DVT PPX - SCD
Code status - Full code
I spent a total of 37 minutes with the patient or on the floor. More than 50% of this time involved counseling and coordination of care.
Anticipated Discharge: Within 24 hours
Subjective/Interval History
-
Date of Service: November 24, 2024
Endorses pain with meals, improved with Carafate and Maalox. Otherwise appears no acute distress, relatively comfortable at this time.
Objective Data
-
Vital Signs:
Vital Signs
Temp Pulse Resp BP Pulse Ox
98.6 F 77 18 146/95 98
11/24/24 08:07 11/24/24 08:07 11/24/24 08:07 11/24/24 08:07 11/24/24 08:07
I&O
11/23/24 11/24/24 11/25/24
06:59 06:59 06:59
Intake Total 180 / 180 480 / 480
Balance 180 / 180 480 / 480
--- NOTE | 2024-11-24 11:42 | CM ---
Chart reviewed. Care ongoing
Poss d/c today if remains stable and tolerating diet
No CM needs at this time
Plan: Home, no needs
[2024-11-24] MEDS: MORPHINE SULFATE 4 MG IV ×3 (11:44→21:20)
--- NOTE | 2024-11-24 12:33 | W.PN.GI.CBS2 ---
Today's Communication / Plan
-
contine PPI, carafate as outpatient
outpatient f/u
po as tolerated
Assessment / Plan
-
Pt with improved odynophagia
- f/u esophageal biopsies
- continue PPI, carafate magic mouthwash likely will need for next 2-4 weeks
will sign off call with questions
will have our office call pt for f/u with Dr. Bledsoe
Subjective
Subjective
Date of Service: November 24, 2024
Pt able to tolerate some food today with the addition of carafate,
Objective
Data Reviewed
Laboratory Data:
Laboratory Results
11/23/24 08:07
11/23/24 08:07
Laboratory Results
PT 13.3 Sec (11.4-14.6) 11/21/24 19:40
INR 0.98 11/21/24 19:40
APTT 20.9 Sec (23.4-35.0) L 11/21/24 19:40
Total Bilirubin 0.5 mg/dl (0.2-1.3) 11/23/24 08:07
AST 63 U/L (14-36) H 11/23/24 08:07
ALT 86 U/L (0-35) H 11/23/24 08:07
Alkaline Phosphatase 57 U/L (38-126) 11/23/24 08:07
Lipase 164 U/L (23-300) 11/21/24 19:40
Vital Signs and I&O:
Vital Signs
Temp Pulse Resp BP Pulse Ox
98.6 F 77 18 146/95 98
11/24/24 08:07 11/24/24 08:07 11/24/24 08:07 11/24/24 08:07 11/24/24 10:55
I&O
11/23/24 11/24/24 11/25/24
06:59 06:59 06:59
Intake Total 180 / 180 480 / 480
Balance 180 / 180 480 / 480
Physical Exam
Physical Exam
GI: Soft and Non Distended
Neuro: Non Focal
[2024-11-24 15:44] VITALS: BP 124/81
[2024-11-24] MEDS: TYLENOL 650 MG PO (16:29)
[2024-11-24] MEDS: LIPITOR 10 MG PO (17:11)
[2024-11-24] MEDS: SEROQUEL 100 MG PO (21:18)
[2024-11-24] MEDS: COLACE 100 MG PO (22:11)
[2024-11-24 23:48] VITALS: BP 127/67
--- NOTE | 2024-11-25 07:40 | W.PN.HOSP.TC ---
Today's Communication/Plan
-
diet downgraded to clears
cont carafate ACHS
maalox switched to scheduled AC
pain control
Assessment / Plan
Assessment / Plan
Physical Exam
General: no acute distress, appears comfortable at this time
HEENT: NormoCephalic, Moist mucous membranes and Atraumatic
Respiratory: Clear
Cardiac: S1/S2 and Regular Rhythm; No Murmur or Rub
GI: Soft, Non Tender, Non Distended and Normal Bowel Sounds; No Organomegaly
Rectal: Hem Negative
Musculoskeletal: No Clubbing, No Cyanosis and No Edema
Skin: No Rash
Neuro: AOx3 conversant coherent
44-year-old with past medical history of alcohol dependence, Norma-Eckert tear, depression and anxiety who presents to the emergency department with 1 day history of hematemesis and complaints of dark stool. She had also 2 to 3 days of
dysphagia/odynophagia with pain localized to the midsternal region after swallowing food and drinks. She denies any sensation of food getting stuck and she had no regurgitation. She does induce vomiting with brushing her cell. However today she
had spontaneous vomited that she feels with coffee-ground. She has not vomited in the ED. Stool was heme-negative in the emergency department. Hemoglobin is 14.5. She is hemodynamically stable. Patient has been taking Aleve of 4 tablets a day
for the last 24 hours. Her last drink was 72 hours ago. She endorses 1 drink of alcohol in the evenings.
PLAN:
Hematemesis -suspect acute gastritis possibly secondary to alcohol or NSAIDs, patient has not been able to be compliant with her PPI as well. I suspect she may be having some reflux as well with the odynophagia. No bright red hematemesis or
redness in the vomitus. No clots. X-ray shows no widening of the mediastinum. No chest pain with palpation
possible Norma-Eckert tear ruled out as below
IV PPI 40 mg BID
H&H trended, stable, no significant anemia noted
Avoid NSAID use at this time
lipase wnl
Pain control and antiemetics
GI eval appreciated EGD 11/23 noted:
-Grade D esophagitis mid/lower esophagus
-Multiple superficial ulcers seen
-Bx'd r/o HSV, CMV
Carafate added
trial regular diet downgraded to Low residue diet given ongoing discomfort, further downgraded to clear liquis, Maalox switched to scheduled AC
Alcohol dependence-reports only drinking 1 glass in the evenings with the last drink about 72 hours ago. No known history of withdrawal denies any history of seizures
- no significant withdrawal noted during stay
- ok to dc [facility]AS protocol
Depression and anxiety
-Continue Trintellix and bupropion
- Continue her Seroquel
-crisis consult in ED (d/t concerns suicidal ideation) appreciated cont outpt follow up with psych
DVT PPX - SCD
Code status - Full code
I spent a total of 42 minutes with the patient or on the floor. More than 50% of this time involved counseling and coordination of care.
Anticipated Discharge: 24 - 48 hours
Subjective/Interval History
-
Date of Service: November 25, 2024
Continues to have significant pain when swallowing/eating meals.
Objective Data
-
Vital Signs:
Vital Signs
Temp Pulse Resp BP Pulse Ox
98.5 F 85 16 127/67 96
11/24/24 23:48 11/24/24 23:48 11/24/24 23:48 11/24/24 23:48 11/24/24 23:48
I&O
11/24/24 11/25/24 11/26/24
06:59 06:59 06:59
Intake Total 480 / 480 960 / 960
Balance 480 / 480 960 / 960
[2024-11-25 07:56] VITALS: BP 141/97
[2024-11-25] MEDS: WELLBUTRIN XL (24 hour extended release) 450 MG PO (08:07)
[2024-11-25] MEDS: THERAGRAN 1 TABLET PO (08:07)
[2024-11-25] MEDS: CARAFATE SUSPENSION 1 GM PO ×4 (08:07→21:37)
[2024-11-25] MEDS: VITAMIN B1 100 MG PO ×2 (08:08→19:58)
[2024-11-25] MEDS: NSS (PRESERVATIVE FREE) 10 ML IV (08:08)
[2024-11-25] MEDS: PROTONIX IV 40 MG IV (08:08)
[2024-11-25] MEDS: COLACE 100 MG PO ×2 (08:16→21:36)
[2024-11-25] MEDS: ROXICODONE 5 MG PO ×3 (08:54→18:13)
--- NOTE | 2024-11-25 10:32 | CM ---
CM reviewed chart, patient seen bedside. Patient discouraged as she felt she had a better day than she is having today, trying to remain optimistic. Denies needs from CM at this time. Will continue to follow for all discharge planning needs.
Plan; home no needs.
[2024-11-25] MEDS: MORPHINE SULFATE 4 MG IV ×2 (11:54→21:37)
[2024-11-25] MEDS: MAALOX 30 ML PO ×2 (12:16→16:47)
[2024-11-25 16:41] VITALS: BP 154/98
[2024-11-25] MEDS: LIPITOR 10 MG PO (16:47)
[2024-11-25] MEDS: PROTONIX 40 MG PO (19:58)
[2024-11-25] MEDS: SEROQUEL 100 MG PO (21:36)
[2024-11-25 23:13] VITALS: BP 135/79
[2024-11-26 07:05] VITALS: BP 125/83
--- NOTE | 2024-11-26 07:52 | W.PN.HOSP.TC ---
Today's Communication/Plan
-
Possible discharge tomorrow if tolerating Low residue
Assessment / Plan
Assessment / Plan
Physical Exam
General: no acute distress, appears comfortable at this time
HEENT: NormoCephalic, Moist mucous membranes and Atraumatic
Respiratory: Clear
Cardiac: S1/S2 and Regular Rhythm; No Murmur or Rub
GI: Soft, Non Tender, Non Distended and Normal Bowel Sounds; No Organomegaly
Rectal: Hem Negative
Musculoskeletal: No Clubbing, No Cyanosis and No Edema
Skin: No Rash
Neuro: AOx3 conversant coherent
44-year-old with past medical history of alcohol dependence, Norma-Eckert tear, depression and anxiety who presents to the emergency department with 1 day history of hematemesis and complaints of dark stool. She had also 2 to 3 days of
dysphagia/odynophagia with pain localized to the midsternal region after swallowing food and drinks. She denies any sensation of food getting stuck and she had no regurgitation. She does induce vomiting with brushing her cell. However today she
had spontaneous vomited that she feels with coffee-ground. She has not vomited in the ED. Stool was heme-negative in the emergency department. Hemoglobin is 14.5. She is hemodynamically stable. Patient has been taking Aleve of 4 tablets a day
for the last 24 hours. Her last drink was 72 hours ago. She endorses 1 drink of alcohol in the evenings.
PLAN:
Hematemesis -suspect acute gastritis possibly secondary to alcohol or NSAIDs, patient has not been able to be compliant with her PPI as well. I suspect she may be having some reflux as well with the odynophagia. No bright red hematemesis or
redness in the vomitus. No clots. X-ray shows no widening of the mediastinum. No chest pain with palpation
possible Norma-Eckert tear ruled out as below
IV PPI 40 mg BID
H&H trended, stable, no significant anemia noted
Avoid NSAID use at this time
lipase wnl
Pain control and antiemetics
GI eval appreciated EGD 11/23 noted:
-Grade D esophagitis mid/lower esophagus
-Multiple superficial ulcers seen
-Bx'd r/o HSV, CMV
Carafate added
trial regular diet downgraded to Low residue diet given ongoing discomfort, further downgraded to clear liquis, Maalox switched to scheduled AC
patient since improved, diet advanced to low residue
Alcohol dependence-reports only drinking 1 glass in the evenings with the last drink about 72 hours ago. No known history of withdrawal denies any history of seizures
- no significant withdrawal noted during stay
- ok to dc [facility] protocol
Depression and anxiety
-Continue Trintellix and bupropion
- Continue her Seroquel
-crisis consult in ED (d/t concerns suicidal ideation) appreciated cont outpt follow up with psych
DVT PPX - SCD
Code status - Full code
I spent a total of 42 minutes with the patient or on the floor. More than 50% of this time involved counseling and coordination of care.
Anticipated Discharge: Within 24 hours
Subjective/Interval History
-
Date of Service: November 26, 2024
No acute distress, overall reports feeling well, eager to advance diet.
Objective Data
-
Labs:
Laboratory Results
11/26/24
07:15
WBC Pending
Hgb Pending
Hct Pending
Plt Count Pending
Sodium Pending
Potassium Pending
Chloride Pending
Carbon Dioxide Pending
BUN Pending
Creatinine Pending
Glucose Pending
Calcium Pending
Total Bilirubin Pending
AST Pending
ALT Pending
Alkaline Phosphatase Pending
Vital Signs:
Vital Signs
Temp Pulse Resp BP Pulse Ox
98.8 F 86 18 135/79 95
11/25/24 23:13 11/25/24 23:13 11/25/24 23:13 11/25/24 23:13 11/25/24 23:13
I&O
11/25/24 11/26/24 11/27/24
06:59 06:59 06:59
Intake Total 960 / 960 960 / 960
Balance 960 / 960 960 / 960
[2024-11-26 08:40] LABS: Hematocrit 41.1 % (37.0-47.0); Hemoglobin 13.8 g/dL (12.0-16.0); Mean Corp Hgb Conc. 33.6 g/dL (33.0-37.0); Mean Corpuscular Volume 91.1 fL (81.0-99.0); Platelet Count 214 10^3/uL (130-400); Red Cell Dist. Width 13.8 % (11.5-14.5)
[2024-11-26] MEDS: WELLBUTRIN XL (24 hour extended release) 450 MG PO (08:44)
[2024-11-26] MEDS: CARAFATE SUSPENSION 1 GM PO ×4 (08:44→21:54)
[2024-11-26] MEDS: MAALOX 30 ML PO ×3 (08:44→16:31)
[2024-11-26] MEDS: PROTONIX 40 MG PO ×2 (08:44→20:20)
[2024-11-26] MEDS: VITAMIN B1 100 MG PO ×2 (08:45→20:20)
[2024-11-26] MEDS: THERAGRAN 1 TABLET PO (08:45)
[2024-11-26] MEDS: TYLENOL 650 MG PO (09:01)
[2024-11-26 09:05] LABS: ALT (SGPT) 68 U/L (0-35); AST (SGOT) 48 U/L (14-36); Albumin 4.3 g/dl (3.5-5.0); Alkaline Phosphatase 56 U/L (38-126); Blood Urea Nitrogen 8 mg/dl (7-17); Calcium 9.1 mg/dl (8.4-10.2); Carbon Dioxide 25 mmol/L (22-30); Chloride 106 mmol/L (98-107); Estimated Creatinine Clearance 111 ml/min; Glucose 95 mg/dl (70-99); Magnesium 2.2 mg/dl (1.6-2.3); Potassium 4.5 mmol/L (3.5-5.1); Sodium 138 mmol/L (135-145); Total Protein 7.1 g/dl (6.3-8.2); eGFR > 60.00
[2024-11-26] MEDS: ROXICODONE 5 MG PO ×2 (12:47→18:14)
[2024-11-26 15:00] VITALS: BP 142/96
[2024-11-26] MEDS: LIPITOR 10 MG PO (16:31)
[2024-11-26] MEDS: COLACE 100 MG PO (21:53)
[2024-11-26] MEDS: SEROQUEL 100 MG PO (21:54)
[2024-11-26] MEDS: MORPHINE SULFATE 4 MG IV (22:01)
[2024-11-26 23:34] VITALS: BP 137/95
[2024-11-27 07:05] VITALS: BP 120/84
[2024-11-27] MEDS: CARAFATE SUSPENSION 1 GM PO (08:37)
[2024-11-27] MEDS: VITAMIN B1 100 MG PO (08:37)
[2024-11-27] MEDS: WELLBUTRIN XL (24 hour extended release) 450 MG PO (08:37)
[2024-11-27] MEDS: PROTONIX 40 MG PO (08:37)
[2024-11-27] MEDS: THERAGRAN 1 TABLET PO (08:37)
[2024-11-27] MEDS: MAALOX 30 ML PO (08:37)
[2024-11-27 09:04] LABS: Hematocrit 41.9 % (37.0-47.0); Hemoglobin 14.1 g/dL (12.0-16.0); Mean Corp Hgb Conc. 33.7 g/dL (33.0-37.0); Mean Corpuscular Volume 90.9 fL (81.0-99.0); Platelet Count 242 10^3/uL (130-400); Red Cell Dist. Width 13.7 % (11.5-14.5)
--- NOTE | 2024-11-27 09:37 | PTCARENOTE ---
pt states feeling better. 2/10 pain in sternal upper abd region. room air heart tones reg. no sob.
[2024-11-27] MEDS: TYLENOL 650 MG PO (09:44)
[2024-11-27 09:52] LABS: ALT (SGPT) 62 U/L (0-35); AST (SGOT) 41 U/L (14-36); Albumin 4.4 g/dl (3.5-5.0); Alkaline Phosphatase 55 U/L (38-126); Blood Urea Nitrogen 10 mg/dl (7-17); Calcium 9.2 mg/dl (8.4-10.2); Carbon Dioxide 25 mmol/L (22-30); Chloride 106 mmol/L (98-107); Estimated Creatinine Clearance 111 ml/min; Glucose 103 mg/dl (70-99); Magnesium 2.1 mg/dl (1.6-2.3); Potassium 4.7 mmol/L (3.5-5.1); Sodium 137 mmol/L (135-145); Total Protein 7.2 g/dl (6.3-8.2); eGFR > 60.00
--- NOTE | 2024-11-27 10:57 | W.PN.HOSP.TC ---
Today's Communication/Plan
-
monitor vitals
see plan
Odynophagia now improving
Continue with PPI, Carafate
Discharge today
Time of discharge 38 minutes
Assessment / Plan
Assessment / Plan
Physical Exam
General: no acute distress, appears comfortable at this time
HEENT: NormoCephalic, Moist mucous membranes and Atraumatic
Respiratory: Clear
Cardiac: S1/S2 and Regular Rhythm; No Murmur or Rub
GI: Soft, Non Tender, Non Distended and Normal Bowel Sounds
Rectal: Hem Negative
Musculoskeletal: No Clubbing, No Cyanosis and No Edema
Skin: No Rash
Neuro: AOx3 conversant coherent
44-year-old with past medical history of alcohol dependence, Norma-Eckert tear, depression and anxiety who presents to the emergency department with 1 day history of hematemesis and complaints of dark stool. She had also 2 to 3 days of
dysphagia/odynophagia with pain localized to the midsternal region after swallowing food and drinks. She denies any sensation of food getting stuck and she had no regurgitation. She does induce vomiting with brushing her cell. However today she
had spontaneous vomited that she feels with coffee-ground. She has not vomited in the ED. Stool was heme-negative in the emergency department. Hemoglobin is 14.5. She is hemodynamically stable. Patient has been taking Aleve of 4 tablets a day
for the last 24 hours. Her last drink was 72 hours ago. She endorses 1 drink of alcohol in the evenings.
PLAN:
Hematemesis -suspect acute gastritis possibly secondary to alcohol or NSAIDs, patient has not been able to be compliant with her PPI as well. I suspect she may be having some reflux as well with the odynophagia. No bright red hematemesis or
redness in the vomitus. No clots. X-ray shows no widening of the mediastinum. No chest pain with palpation
possible Norma-Eckert tear ruled out as below
cw PPI 40 mg BID
H&H trended, stable, no significant anemia noted
Avoid NSAID use at this time
lipase wnl
Pain control and antiemetics
GI eval appreciated EGD 11/23 noted with esophagitis with multiple superficial ulcers
-Grade D esophagitis mid/lower esophagus
-Multiple superficial ulcers seen
-Bx'd r/o HSV, CMV
Carafate added
Now tolerating low residue, Maalox switched to scheduled AC
Alcohol dependence-reports only drinking 1 glass in the evenings with the last drink about 72 hours ago. No known history of withdrawal denies any history of seizures
- no significant withdrawal noted during stay
- ok to dc [facility] protocol
Depression and anxiety
-Continue Trintellix and bupropion
- Continue her Seroquel
-crisis consult in ED (d/t concerns suicidal ideation) appreciated cont outpt follow up with psych
DVT PPX - SCD
Code status - Full code
Anticipated Discharge: Today
Subjective/Interval History
-
Date of Service: November 27, 2024
Feeling better
Objective Data
-
Labs:
Laboratory Results
11/27/24
08:20
WBC 6.5
Hgb 14.1
Hct 41.9
Plt Count 242
Sodium 137
Potassium 4.7
Chloride 106
Carbon Dioxide 25
BUN 10
Creatinine 0.7
Glucose 103 H
Calcium 9.2
Total Bilirubin 0.4
AST 41 H
ALT 62 H
Alkaline Phosphatase 55
Vital Signs:
Vital Signs
Temp Pulse Resp BP Pulse Ox
98.3 F 87 16 120/84 97
11/27/24 07:05 11/27/24 07:05 11/27/24 07:05 11/27/24 07:05 11/27/24 07:05
I&O
11/26/24 11/27/24 11/28/24
06:59 06:59 06:59
Intake Total 960 / 960 240 / 240
Balance 960 / 960 240 / 240
--- NOTE | 2024-11-27 11:07 | W.DCSUMMARY ---
Discharge Summary
Discharge Data
Date of Admission: 11/22/24
Date of Discharge: 11/27/24
-
Pending Results: Yes
Hospital Course
44-year-old female with past medical history of alcohol dependence, Norma-Eckert tear, depression, anxiety came to the hospital with dark stool and hematemesis. Patient was seen by GI throughout hospitalization and was taken for endoscopy which
showed esophagitis with multiple superficial ulcers. This was suspected to be reason for patient odynophagia and possible bleeding. Gastroenterology recommended Carafate along with PPI. Patient was also instructed to follow-up with GI closely
outpatient. On admission there was concern regarding suicidal ideation. Crisis was consulted in the ED. Patient at that time denied any further ideation and patient was cleared from crisis with outpatient psychiatry follow-up. Once patient
symptoms continue to improve, she was then discharged home with instructions to follow-up with all her physicians outpatient.
Discharge Plan
-
Patient Disposition: Home (Routine Discharge)
Discharge Diagnosis/Procedures: Hematemesis
Acute gastritis
Esophagitis with multiple esophageal ulcers
Condition: Fair
Diet: Low Residue
Activity: As tolerated
Driving Restrictions: As prior to admission
Bathing Restrictions: None
Referrals:
Jennifer Mccloud MD [Family Provider, Internal Medicine] - in less than 1 week
Polina Bledsoe MD [Active, Gastroenterology]
Jerilyn Palacios MD [Active, Psychiatry]
Prescriptions:
New
sucralfate [Carafate] 1 gram tablet
1 g PO ACHS Qty: 120 0RF
pantoprazole 40 mg Tablet,Delayed Release (Dr/Ec)
40 mg PO BID Qty: 60 0RF
alum-mag hydroxide-simeth [Mag-Al Plus] 200-200-20 mg/5 mL Suspension
30 ml PO AC Qty: 0 0RF
oxycodone 5 mg Tablet
5 mg PO Q6HPRN PRN (Reason: moderate to severe pain) Qty: 10 0RF
Continued
atorvastatin 10 mg Tablet
10 mg PO QPM
Trintellix 20 mg Tablet
20 mg PO DAILY
therapeutic multivitamin Tablet
1 tab PO DAILY
quetiapine [Seroquel] 100 mg Tablet
100 mg PO HS
ferrous sulfate 325 mg (65 mg iron) Tablet
325 mg PO DAILY
calcium carbonate [Tums] 200 mg calcium (500 mg) Tablet,Chewable
200 mg PO BIDPRN PRN (Reason: gerd)
bupropion HCl 450 mg Tablet Extended Release 24 Hr
450 mg PO DAILY
pantoprazole 40 mg tablet,delayed release (DR/EC)
40 mg PO BID Qty: 60 0RF
Discontinued
naproxen sodium [Aleve] 220 mg Tablet
440 mg PO BIDPRN PRN (Reason: mild pain)
Discharge Orders:
Discharge Patient (As Directed); Ordered 11/27/24
Ordered By: Roel Cooper
Discharge Date and Time
Discharge Date/Time: 11/27/24 14:05
Print Language: PAKISTANI
[2024-11-27 12:10] VITALS: BP 137/94
--- NOTE | 2024-11-27 13:24 | CM ---
Pt discharged home, no needs. Friend will pick her up and transport her home in a private
== END 2024-11-27 14:05 | disposition home or self-care (01) | DRG 381 ==
LOC: 4 EAST ACU 00:35
PROVIDERS: Internal Medicine; Nurse Practitioner Adult Health; ADMITTING PHYSICIAN Internal Medicine; ATTENDING PHYSICIAN Internal Medicine; CONSULT PHYSICIAN Specialist; EMERGENCY PHYSICIAN Emergency Medicine; FAMILY PHYSICIAN Emergency Medicine
PROC: 0DB28ZX Excision of Middle Esophagus, Via Natural or Artificial Opening Endoscopic, Diagnostic (ICD-10-PCS; 2024-11-23)
PROC: 0DB48ZX Excision of Esophagogastric Junction, Via Natural or Artificial Opening Endoscopic, Diagnostic (ICD-10-PCS; 2024-11-23)
DX: K22.11 Ulcer of esophagus with bleeding (principal); R45.851 Suicidal ideations; Z59.00 Homelessness unspecified; F32.A Depression, unspecified; F41.9 Anxiety disorder, unspecified; F17.200 Nicotine dependence, unspecified, uncomplicated; F10.20 Alcohol dependence, uncomplicated; E78.00 Pure hypercholesterolemia, unspecified; J45.909 Unspecified asthma, uncomplicated; K21.9 Gastro-esophageal reflux disease without esophagitis; K29.00 Acute gastritis without bleeding; Z56.0 Unemployment, unspecified; Z59.71 Insufficient health insurance coverage
CPT/HCPCS: 74022; 80048; 80053; 83690; 83735; 84100; 85014; 85018; 85025; 85027; 85610; 85730; 86850; 86900; 86901; 88305; 88312; 88342; 93005; 94760; 96361; 96374; 96375; 99285; 99406